=== PATIENT | male | born 1955 | race Caucasian/White ===

== ENCOUNTER 2021-03-29 15:00 | Inpatient (IN) | payer BC ==
--- OUTSIDE RECORDS SUMMARY | 2021-03-29 15:02 | XMS REPORT | Continuity of Care Document ---
:[address] [facility] t Address [address] [place] [address] Care Team Providers Name Role Phone Unavailable Unavailable Unavailable Problems This patient has no known problems. Allergies, Adverse Reactions, Alerts This patient has no known allergies or adverse reactions. Medications Ordered Filled Start Stop Current Ordering Indication Dosage Frequency Signature Comments Components Source Medication Medication Date Date Medication? Clinician (SIG) Name Name Furosemide Furosemide Yes Na So [address] [facility] MethylPREDN MethylPREDN 0 Yes Na So as [facility] ISolone ISolone 01-07 directed [facility] Mupirocin Mupirocin 2020- No Na So [address] [facility] 01[facility]07 applicatio [facility] Keflex Keflex 2020- No Na So [address] [facility] Sulfamethox Sulfamethox Yes Na So [address] [facility] azole-Trime azole-Trime [facility] - thoprim thoprim [facility] Methylpredn Methylpredn Yes Na So [address] [facility] isolone isolone [facility] Furosemide Furosemide Yes Na So [address] [facility] Cephalexin Cephalexin Yes Na So [address] [facility] Claritin Claritin Yes Na So [address] [facility] Potassium Potassium Yes Na So [address] [facility] Chloride ER Chloride ER with food [facility] Procedures This patient has no known procedures. Encounters Start End Encounter Admission Attending Care Care Encounter Source Date/Time Date/Time Type Type Clinicians Facility Department ID 2021-03-27 2021-03-27 ambulatory [facility] [id number] [facility] 2021-01-27 2021-01-27 Outpatient [facility] [id number] [facility] 2021-01-17 2021-01-17 Outpatient [facility] [id number] [facility] 2020-12-27 2020-12-27 Outpatient [facility] [id number] [facility] 2020-09-24 2020-09-24 Outpatient [facility] [id number] [facility] 2020-09-18 2020-09-18 Outpatient [facility] [id number] [facility] 2020-09-03 2020-09-03 Outpatient [facility] [id number] [facility] 2020-06-24 2020-06-24 Outpatient [facility] [id number] [facility] 2020-03-26 2020-03-26 Outpatient [facility] [id number] [facility] 2020-01-25 2020-01-25 Outpatient [facility] [id number] [facility] 2020-01-12 2020-01-12 Outpatient [facility] [id number] [facility] 2020-01-08 2020-01-08 Outpatient [facility] [id number] [facility] 11:00:00 11:00:00 [facility] 2019-12-27 2019-12-27 Outpatient [facility] [id number] [facility] 16:01[facility]00 16:01:00 [facility] 2019-12-25 2019-12-25 Outpatient [facility] [id number] [facility] 10:20:00 10:20:00 [facility] Results This patient has no known results.
[2021-03-29 15:59] LABS: Absolute Lymphocytes (CBC) 0.4 K/uL (0.7-4.9); Basophils % 0.5 % (0-1.3); Lymphocytes % 9.6 % (15.3-44.8); MPV 7.6 fL (7.6-11.3); Protime INR 0.99; RBC Red Blood Cell Count 3.86 M/uL (4.33-5.43)
[2021-03-29 16:15] LABS: Albumin 2.9 g/dL (3.4-5.0); Bilirubin Direct 0.2 mg/dL (0-0.2); Bilirubin Total 0.4 mg/dL (0.2-1.0); Magnesium 2.4 mg/dL (1.8-2.4); Potassium 3.9 mmol/L (3.5-5.1); Protein, Total 8.1 g/dL (6.4-8.2)
[2021-03-29 16:16] LABS: Troponin (Emerg Dept Use Only) 0.54 ng/mL (0.0-0.045)
--- NOTE | 2021-03-29 16:29 | RAD REPORT ---
EXAM DESCRIPTION: Victorino Single View03/29/2021 4:08 pm CLINICAL HISTORY: Chest pain COMPARISON: 2010 FINDINGS: Calcified granuloma right lung. The lungs appear clear of acute infiltrate. The heart is probably upper limits normal size IMPRESSION: No acute abnormalities displayed
[2021-03-29] MEDS ORDERED: ENOXAPARIN 100 MG/ML SYR SQ ONE (16:37)
[2021-03-29] MEDS ORDERED: ASPIRIN 81 MG CHEWABLE TABLET ONE (16:37)
[2021-03-29] MEDS ORDERED: METOPROLOL TARTRATE 5 MG/5 ML INJ IV ONE (16:37)
--- NOTE | 2021-03-29 17:16 | EDPHYS ---
Physician Documentation [facility] Name: Toy Barrios Age: 65 yrs Sex: Male : 1955 Arrival Date: 03/29/2021 Time: 15:00 Bed 2 Private MD: Purnima So ED Physician Bruno Devi HPI: 03/29 15:57 This 65 yrs old Male presents to ER via Wheelchair with complaints of Chest Pain. pm1 15:57 The patient or guardian reports chest pain that is located primarily in the mid-sternal pm1 area. 15:57 Onset: last night. The pain does not radiate. Associated signs and symptoms: Pertinent pm1 positives: palpitations, shortness of breath, Pertinent negatives: abdominal pain, diaphoresis, dizziness, headache, nausea, vomiting. The chest pain is described as a pressure, Then sharp. Duration: The patient or guardian reports multiple episodes, that have now resolved, One episode last night and one episode 30 minutes prior to arrival. 2 episodes chest pain total. Modifying factors: The symptoms are alleviated by nothing. the symptoms are aggravated by exertion, With 2nd episode. Severity of pain: in the emergency department the pain has resolved. The patient has not experienced similar symptoms in the past. The patient has not recently seen a physician. Patient reports onset of chest pain last night that lasted for about 15 minutes. 30 minutes prior to to ER arrival chest pain that lasted for 30 minutes, worse with exertion (walking), shortness of breath and palpitations with elevated heart rate. Patient is currently chest pain and symptom-free. Historical: - Allergies: 15:49 topical eczema cream; jl7 - PMHx: 15:49 eczema; Hypertensive disorder; jl7 - Immunization history:: Adult Immunizations unknown. - Social history:: Smoking status: unknown. ROS: 15:57 Constitutional: Negative for fever, chills, and weight loss. pm1 15:57 Abdomen/GI: Negative for abdominal pain, nausea, vomiting, diarrhea, and constipation, Back: Negative for injury and pain, MS/Extremity: Negative for injury and deformity, Skin: Negative for injury, rash, and discoloration, Neuro: Negative for headache, weakness, numbness, tingling, and seizure. 15:57 Cardiovascular: Positive for chest pain, palpitations, Negative for edema. 15:57 Respiratory: Positive for shortness of breath. 15:57 All other systems are negative. Exam: 15:57 Constitutional: This is a well developed, well nourished patient who is awake, alert, pm1 and in no acute distress. Head/Face: Normocephalic, atraumatic. 15:57 Back: No spinal tenderness. No costovertebral tenderness. Full range of motion. Skin: Warm, dry with normal turgor. Normal color with no rashes, no lesions, and no evidence of cellulitis. MS/ Extremity: Pulses equal, no cyanosis. Neurovascular intact. Full, normal range of motion. 15:57 Eyes: Exam is negative for acute changes, Extraocular movements: no acute changes, Conjunctiva: no acute changes, no injection, Sclera: no acute changes. 15:57 ENT: Exam is negative for acute changes, Mouth: is normal, no acute changes, Lips: normal, moist, Oral mucosa: normal, pink and intact, moist. 15:57 Cardiovascular: Exam negative for acute changes, Rate: normal, Rhythm: regular, Pulses: no pulse deficits are appreciated, Heart sounds: normal, normal S1and S2, Edema: 2+ edema to level of left midcalf, left ankle, left foot, right midcalf, right ankle and right foot. 15:57 Respiratory: Exam negative for acute changes, respiratory distress, shortness of breath, Breath sounds: are clear throughout. 15:57 Abdomen/GI: Exam negative for acute changes, Inspection: abdomen appears normal, Palpation: abdomen is soft and non-tender, in all quadrants. 15:57 Neuro: Exam negative for acute changes, Orientation: is normal, Mentation: is normal, Motor: is normal, moves all fours. Vital Signs: 15:19 BP 154 / 73; Pulse 97; Resp 18; Temp 98.5; Pulse Ox 98% ; Weight 97.52 kg; Height 6 ft. vg1 0 in. (182.88 cm); Pain 0/10; 15:30 BP 120 / 72; Pulse 102; Resp 15; Pulse Ox 98% ; jl7 16:15 BP 123 / 68; Pulse 95; Resp 19; Pulse Ox 97% ; jl7 16:39 BP 124 / 73; Pulse 95; Resp 17; Pulse Ox 98% ; jl7 16:52 BP 114 / 51; Pulse 76; Resp 15; Pulse Ox 99% ; jl7 17:00 BP 121 / 68; Pulse 71; Resp 16; Pulse Ox 100% ; jl7 18:38 BP 135 / 67; Pulse 79; Resp 15; Pulse Ox 100% ; jl7 15:19 Body Mass Index 29.16 (97.52 kg, 182.88 cm) vg1 MDM: 15:25 Patient medically screened. pm1 15:57 Data reviewed: vital signs. Data interpreted: Pulse oximetry: on room air is 98 %. pm1 Interpretation: normal. 16:29 ED course: Patient reports car trip for 27 hours last week, will order ultrasound of pm1 legs. Patient reports swelling is worse than typical. Usually has some swelling to left lower extremity. 16:38 The patient was given aspirin in the Emergency Department. pm1 16:46 Counseling: I had a detailed discussion with the patient and/or guardian regarding: the pm1 historical points, exam findings, and any diagnostic results supporting the discharge/admit diagnosis, lab results, the need for further work-up and treatment in the hospital. 18:16 Physician consultation: Rodo NESBITT was called at 18:16, was contacted at 18:16, pm1 regarding admission, patient's condition, and will see patient in ED. 03/29 15:21 Order name: Basic Metabolic Panel pm1 03/29 15:21 Order name: CBC with Diff pm1 03/29 15:21 Order name: LFT's; Complete Time: 16:20 pm1 03/29 15:21 Order name: Magnesium; Complete Time: 16:20 pm1 03/29 15:21 Order name: NT PRO-BNP; Complete Time: 16:20 pm1 03/29 15:21 Order name: PT-INR; Complete Time: 16:06 pm1 03/29 15:21 Order name: Troponin (emerg Dept Use Only); Complete Time: 16:20 pm1 03/29 15:21 Order name: XRAY Chest (1 view); Complete Time: 16:36 pm1 03/29 15:22 Order name: Basic Metabolic Panel; Complete Time: 16:20 EDMS 03/29 15:22 Order name: CBC with Automated Diff; Complete Time: 19:29 EDMS 03/29 16:29 Order name: Extrem Venous W Compression Santo US; Complete Time: 17:39 pm1 03/29 17:23 Order name: SARS-COV-2 RT PCR; Complete Time: 18:09 EDMS 03/29 19:22 Order name: CBC Smear Scan; Complete Time: 19:29 EDMS 03/29 15:21 Order name: EKG; Complete Time: 15:23 pm1 03/29 15:21 Order name: Cardiac monitoring; Complete Time: 15:31 pm1 03/29 15:21 Order name: EKG - Nurse/Tech; Complete Time: 15:31 pm1 03/29 15:21 Order name: IV Saline Lock; Complete Time: 15:45 pm1 03/29 15:21 Order name: Labs collected and sent; Complete Time: 15:45 pm1 03/29 15:21 Order name: O2 Per Protocol; Complete Time: 15:31 pm1 03/29 15:21 Order name: O2 Sat Monitoring; Complete Time: 15:31 pm1 03/29 18:31 Order name: CONS Physician Consult EDMS Administered Medications: 16:40 Drug: Aspirin Chewable Tablet 324 mg Route: PO; jl7 17:07 Follow up: Response: No adverse reaction jl7 16:45 Drug: Metoprolol 5 mg Route: IVP; Site: right antecubital; jl7 17:07 Follow up: Response: No adverse reaction jl7 16:45 Drug: Lovenox (enoxaparin) 1 mg/kg Route: Sub-Q; Site: abdomen; jl7 17:06 Follow up: Response: No adverse reaction jl7 18:36 Drug: Metoprolol 25 mg Route: PO; jl7 20:09 Follow up: Response: No adverse reaction tw5 Disposition: 03/30 08:00 Co-signature as Attending Physician, Bruno Devi MD I agree with the assessment and rn plan of care. Attestation: The patient's history, exam findings, diagnostics, and a summary of any interventions or procedures was reviewed in detail with Mike West NP. Disposition Summary: 03/29/21 17:15 Hospitalization Ordered Hospitalization Status: Inpatient Admission pm1 Provider: Rodo Diez pm1 Location: Telemetry/MedSur (Inpatient) pm1 Condition: Stable pm1 Problem: new pm1 Symptoms: have improved pm1 Bed/Room Type: Standard pm1 Room Assignment: 407(03/29/21 19:17) eb1 Diagnosis - NSTEMI pm1 Forms: - Medication Reconciliation Form pm1 - SBAR form pm1 Signatures: Dispatcher [employer] EDDE Bruno Devi MD MD rn Mike West, ASSURANCE ASSISTANT ASSURANCE ASSISTANT pm1 Naun Batista RN RN jl7 Rosibel Dennis RN RN eb1 Rose Mary Smith tw5 Corrections: (The following items were deleted from the chart) 03/29 17:23 16:56 CORONAVIRUS+MR.LAB.BRZ ordered. EDDE EDMS 17:59 15:57 Cardiovascular: Exam negative for acute changes, Rate: normal, Rhythm: regular, pm1 Pulses: no pulse deficits are appreciated, Heart sounds: normal, normal S1and S2, Edema: is not appreciated, pm1 19:17 17:15 pm1 eb1
--- NOTE | 2021-03-29 17:16 | ER ---
Nurse's Notes [facility] Name: Toy Barrios Age: 65 yrs Sex: Male : 1955 Arrival Date: 03/29/2021 Time: 15:00 Bed 2 Private MD: Purnima So Diagnosis: NSTEMI Presentation: 03/29 15:19 Chief complaint: Patient states: Chest pain began last night. Then stated about 30 vg1 minutes ago chest pain began again that felt like heart burn. States 'a little bit' or shortness of breath. Denies NVD and headache. Coronavirus screen: Vaccine status: Patient reports receiving the 2nd dose of the covid vaccine. Client denies travel out of the [place] in the last 14 days. Ebola Screen: Patient negative for fever greater than or equal to 101.5 degrees Fahrenheit, and additional compatible Ebola Virus Disease symptoms. Initial Sepsis Screen: Does the patient meet any 2 criteria? No. Patient's initial sepsis screen is negative. Does the patient have a suspected source of infection? No. Patient's initial sepsis screen is negative. Risk Assessment: Do you want to hurt yourself or someone else? Patient reports no desire to harm self or others. Onset of symptoms. 15:19 Method Of Arrival: Wheelchair vg1 15:19 Acuity: LICHA 2 vg1 Historical: - Allergies: 15:49 topical eczema cream; jl7 - PMHx: 15:49 eczema; Hypertensive disorder; jl7 - Immunization history:: Adult Immunizations unknown. - Social history:: Smoking status: unknown. Screenin:00 Abuse screen: Denies threats or abuse. Denies injuries from another. Nutritional jl7 screening: No deficits noted. Tuberculosis screening: No symptoms or risk factors identified. Fall Risk IV access (20 points). Total Pruitt Fall Scale indicates No Risk (0-24 pts). Assessment: 15:40 General: Appears in no apparent distress. uncomfortable, Behavior is calm, cooperative. ll3 Pain: Denies pain. Neuro: Level of Consciousness is awake, alert, obeys commands, Oriented to person, place, time, situation, Speech is normal, Facial symmetry appears normal. Cardiovascular: Patient's skin is warm and dry. 17:00 Reassessment: Patient appears in no apparent distress at this time. No changes from jl7 previously documented assessment. Patient and/or family updated on plan of care and expected duration. Pain level reassessed. Patient is alert, oriented x 3, equal unlabored respirations, skin warm/dry/pink. 18:30 Reassessment: Patient appears in no apparent distress at this time. No changes from jl7 previously documented assessment. Patient and/or family updated on plan of care and expected duration. Pain level reassessed. Patient is alert, oriented x 3, equal unlabored respirations, skin warm/dry/pink. Pain: Denies pain. Pain does not radiate. Pain began suddenly. Vital Signs: 15:19 BP 154 / 73; Pulse 97; Resp 18; Temp 98.5; Pulse Ox 98% ; Weight 97.52 kg; Height 6 ft. vg1 0 in. (182.88 cm); Pain 0/10; 15:30 BP 120 / 72; Pulse 102; Resp 15; Pulse Ox 98% ; jl7 16:15 BP 123 / 68; Pulse 95; Resp 19; Pulse Ox 97% ; jl7 16:39 BP 124 / 73; Pulse 95; Resp 17; Pulse Ox 98% ; jl7 16:52 BP 114 / 51; Pulse 76; Resp 15; Pulse Ox 99% ; jl7 17:00 BP 121 / 68; Pulse 71; Resp 16; Pulse Ox 100% ; jl7 18:38 BP 135 / 67; Pulse 79; Resp 15; Pulse Ox 100% ; jl7 15:19 Body Mass Index 29.16 (97.52 kg, 182.88 cm) vg1 ED Course: 15:00 Patient arrived in ED. as 15:02 Purnima So MD is Private Physician. as 15:19 Mike West [facility] pm1 15:19 Bruno Devi MD is Attending Physician. pm1 15:22 Triage completed. vg1 15:30 Patient maintains SpO2 saturation greater than 95% on room air. jl7 15:30 Patient has correct armband on for positive identification. Placed in gown. Bed in low jl7 position. Call light in reach. Side rails up X2. sheet rocker on. Pulse ox on. NIBP on. 15:46 Initial lab(s) drawn, by me, sent to lab. Inserted saline lock: 20 gauge in right jl7 antecubital area, using aseptic technique. Blood collected. 15:49 Arm band placed on right wrist. jl7 16:07 XRAY Chest (1 view) In Process Unspecified. EDMS 16:36 Crystal Carter, RN is Primary Nurse. ll3 17:08 COVID swab sent to lab. jl7 17:15 Rodo Diez PA is Hospitalizing Provider. pm1 17:17 Extrem Venous W Compression Santo US In Process Unspecified. EDMS 19:02 Basic Metabolic Panel Sent. ll3 19:02 CBC with Diff Sent. ll3 19:04 Awaiting bed assignment. tw5 20:07 No provider procedures requiring assistance completed. Patient admitted, IV remains in tw5 place. Administered Medications: 16:40 Drug: Aspirin Chewable Tablet 324 mg Route: PO; jl7 17:07 Follow up: Response: No adverse reaction jl7 16:45 Drug: Metoprolol 5 mg Route: IVP; Site: right antecubital; jl7 17:07 Follow up: Response: No adverse reaction jl7 16:45 Drug: Lovenox (enoxaparin) 1 mg/kg Route: Sub-Q; Site: abdomen; jl7 17:06 Follow up: Response: No adverse reaction jl7 18:36 Drug: Metoprolol 25 mg Route: PO; jl7 20:09 Follow up: Response: No adverse reaction tw5 Outcome: 17:15 Decision to Hospitalize by Provider. pm1 19:34 Admitted to Med/surg Report called to Everardo on 4th floor. tw5 20:07 Condition: stable tw5 20:08 Admitted to Med/surg accompanied by tech, room 407, with chart. tw5 20:09 Patient left the ED. tw5 Signatures: Dispatcher [employer] Lizette Tyler Patrick, CORE WINDER MACHINE OPERATOR CORE WINDER MACHINE OPERATOR pm1 Naun Batista RN RN jl7 Ludy Navarro, RN RN dane1 Rose Mary Smith tw5 Crystal Carter, RN RN ll3
--- NOTE | 2021-03-29 17:38 | RAD REPORT ---
EXAM DESCRIPTION: USExtrem Venous W Compress Bil03/29/2021 5:17 pm CLINICAL HISTORY: Leg swelling COMPARISON: 2010 FINDINGS: The common femoral, superficial femoral, popliteal and posterior tibial veins bilaterally are compressible and demonstrate augmentation. Doppler demonstrates good flow. IMPRESSION: No evidence of deep venous thrombosis involving either lower extremity.
[2021-03-29] MEDS ORDERED: METOPROLOL TAR 25 MG TAB ONE (18:33)
[2021-03-29 19:22] LABS: Blood Morphology Comment NOT SEEN (NOT SEEN); Platelet Estimate ADEQ; White Blood Cell Scan OK (OK)
--- NOTE | 2021-03-29 20:01 | P.HP ---
Certification for Inpatient Patient admitted to: Inpatient With expected LOS: >2 Midnights Patient will require the following post-hospital care: None Practitioner: I am a practitioner with admitting privileges, knowledge of patient current condition, hospital course, and medical plan of care. Services: Services provided to patient in accordance with Admission requirements found in Title 42 Section 412.3 of the Code of Federal Regulations Patient History Date of Service: 03/29/21 Primary Care Provider: Saray Reason for admission: NSTEMI History of Present Illness: Mr. Barrios is a 65 yo M with HTN who presents with 3/10 sternal chest pain beginning today after eating lunch. He says he didn't feel well so went outside for fresh air when he had a sharp pain in chest that continued to increase. He says the pain had resolved by the time he arrived to the hospital. Reports SOB. Denies vision changes, diaphoresis, palpitations, and nausea. He smokes 1 cigar daily. Father and brother have both had MIs. His last cardiac workup was 20 years ago. Troponin 0.54 BNP 888 Glu 205. Allergies topical eczema cream Allergy (Uncoded 03/29/21 19:07) Itching/Hives/Rash - Past Medical/Surgical History -: HTN Past Surgical History: Patient denies surgical history - Family History Father -: Heart disease Brother -: Heart disease Mother -: Hypertension, Diabetes - Social History Smoking Status: Current every day smoker Alcohol use: Yes CD- Drugs: No Caffeine use: Yes Place of Residence: Home Review of Systems 10-point ROS is otherwise unremarkable General: Unremarkable Eyes: Unremarkable ENT: Unremarkable Respiratory: Shortness of Breath, As per HPI Cardiovascular: Chest Pain, As per HPI Gastrointestinal: Unremarkable Genitourinary: Unremarkable Musculoskeletal: Unremarkable Integumentary: Unremarkable Neurological: Unremarkable Lymphatics: Unremarkable Physical Examination - Physical Exam General: Alert, In no apparent distress HEENT: Atraumatic, PERRLA, Mucous membr. moist/pink, EOMI, Sclerae nonicteric Neck: Supple, 2+ carotid pulse no bruit, No LAD, Without JVD or thyroid abnormality Respiratory: Clear to auscultation bilaterally, Normal air movement Cardiovascular: Regular rate/rhythm, Normal S1 S2, Edema Gastrointestinal: Normal bowel sounds, No tenderness Musculoskeletal: No tenderness Integumentary: Rash(es) Neurological: Normal speech, Normal strength at 5/5 x4 extr, Normal tone, Normal affect Lymphatics: No axilla or inguinal lymphadenopathy - Studies Laboratory Data (last 24 hrs) 03/29/21 15:39: PT 11.4, INR 0.99 03/29/21 15:39: WBC 4.20 L, Hgb 12.4 L, Hct 38.0 L, Plt Count 190 03/29/21 15:39: Sodium 141, Potassium 3.9, BUN 10, Creatinine 1.31 H, Glucose 205 H, Magnesium 2.4, Total Bilirubin 0.4, AST 33, ALT 26, Alkaline Phosphatase 102 Assessment and Plan - Problems (Diagnosis) (1) NSTEMI (non-ST elevated myocardial infarction) Current Visit: Yes Status: Acute (2) HTN (hypertension) Current Visit: Yes Status: Chronic Qualifiers: Hypertension type: primary hypertension Qualified Code(s): I10 - Essential (primary) hypertension - Plan cardiology consulted, on tele trend troponins, repeat EKG full dose lovenox every 12 hours continue daily ASA, BB, statin, prn morphine and nitroglycerin for pain O2 as needed A1c pending, sliding scale insulin lipid and thyroid panel pending monitor BP, hydralazine PRN for spikes Discharge Plan: Home Plan to discharge in: 72 Hours - Advance Directives Does patient have a Living Will: No Does patient have a Durable POA for Healthcare: No - Code Status/Comfort Care Code Status Assessed: Yes (full code ) Critical Care: No Time Spent Managing Pts Care (In Minutes): 70
[2021-03-29] MEDS ORDERED: NITROGLYCERIN 0.4 MG/TAB SL PRN (20:39)
[2021-03-29] MEDS ORDERED: HYDRALAZINE HCL 20 MG/ML VIAL IV PRN (20:39)
[2021-03-29] MEDS ORDERED: MORPHINE 2 MG/ML SYR IV PRN (20:39)
[2021-03-29] MEDS ORDERED: ONDANSETRON 4 MG/2 ML VIAL IV PRN (20:39)
[2021-03-29] MEDS ORDERED: ACETAMINOPHEN 500 MG TAB PO PRN (20:39)
[2021-03-29] MEDS: INSULIN -REGULAR HUMAN 50 UNIT/0.5 ML ML SQ SCH (21:00)
[2021-03-29] MEDS: ATORVASTATIN 40 MG TAB PO SCH (21:14)
[2021-03-29 22:28] VITALS: BMI 29.1
[2021-03-30] MEDS: ENOXAPARIN 100 MG/ML SYR SQ SCH ×2 (04:18→16:54)
[2021-03-30 04:25] LABS: Absolute Lymphocytes (CBC) 1.5 K/uL (0.7-4.9); Basophils % 0.7 % (0-1.3); Hematocrit 35.4 % (39.6-49.0); Lymphocytes % 28.2 % (15.3-44.8); MPV 7.6 fL (7.6-11.3)
[2021-03-30] MEDS ORDERED: ENOXAPARIN 100 MG/ML SYR SQ SCH (04:45)
[2021-03-30 04:56] LABS: Albumin 2.6 g/dL (3.4-5.0); Bilirubin Total 0.3 mg/dL (0.2-1.0); Magnesium 2.4 mg/dL (1.8-2.4); Phosphorus 3.4 mg/dL (2.5-4.9); Protein, Total 7.2 g/dL (6.4-8.2); Thyroid Stimulating Hormone 2.14 uIU/mL (0.360-3.740)
[2021-03-30] MEDS: METOPROLOL TAR 25 MG TAB PO SCH ×2 (06:03→16:55)
[2021-03-30] MEDS: INSULIN -REGULAR HUMAN 50 UNIT/0.5 ML ML SQ SCH (07:30)
[2021-03-30] MEDS: ASPIRIN EC 81 MG TAB PO SCH (08:01)
[2021-03-30] MEDS ORDERED: PNEUMOCOCCAL VACCINE 0.5 ML IMVAC ONE (12:00)
--- NOTE | 2021-03-30 16:13 | P.PN ---
Subjective Date of Service: 03/30/21 Primary Care Provider: Saray Chief Complaint: NSTEMI Patient denies any chest pain at the moment. Troponin trended down from 0.75 to 0.58. Physical Examination - Vital Signs Temperature: 98.2 F Blood Pressure: 107/56 Pulse: 66 Respirations: 18 Pulse Ox (%): 94 - Physical Exam General: Alert, In no apparent distress, Oriented x3 HEENT: Atraumatic, Mucous membr. moist/pink, Sclerae nonicteric Neck: Supple, JVD not distended Respiratory: Clear to auscultation bilaterally, Normal air movement Cardiovascular: Regular rate/rhythm, Normal S1 S2, Edema (Bilateral lower extremities) Capillary refill: <2 Seconds Gastrointestinal: Normal bowel sounds, Soft and benign, Non-distended, No tenderness Musculoskeletal: No tenderness, Swelling (Bilateral legs) Integumentary: No rashes, No erythema Neurological: Normal strength at 5/5 x4 extr, Cranial nerves 3-12 intact - Studies Laboratory Data (last 24 hrs) 03/29/21 15:39: WBC 4.20 L, Hgb 12.4 L, Hct 38.0 L, Plt Count 190 03/29/21 15:39: Sodium 141, Potassium 3.9, BUN 10, Creatinine 1.31 H, Glucose 205 H, Magnesium 2.4, Total Bilirubin 0.4, AST 33, ALT 26, Alkaline Phosphatase 102 Assessment And Plan - Current Problems (Diagnosis) (1) NSTEMI (non-ST elevated myocardial infarction) Current Visit: Yes Status: Acute (2) HTN (hypertension) Current Visit: Yes Status: Chronic Qualifiers: Hypertension type: primary hypertension Qualified Code(s): I10 - Essential (primary) hypertension - Plan Patient with no history of coronary artery disease. Troponin elevated but trended down. Continue to trend troponin. Aspirin and Plavix, full dose Lovenox. Lipitor Check echocardiogram. Beta-slava as his blood pressure will tolerate. Awaiting cardiology input.
[2021-03-30] MEDS: ATORVASTATIN 40 MG TAB PO SCH (21:57)
[2021-03-31 04:05] LABS: Absolute Lymphocytes (CBC) 1.6 K/uL (0.7-4.9); Basophils % 0.6 % (0-1.3); Hematocrit 34.1 % (39.6-49.0); Lymphocytes % 34.3 % (15.3-44.8); MPV 7.9 fL (7.6-11.3)
[2021-03-31 04:30] LABS: Potassium 3.8 mmol/L (3.5-5.1)
[2021-03-31] MEDS: ASPIRIN EC 81 MG TAB PO SCH (06:34)
[2021-03-31] MEDS: METOPROLOL TAR 25 MG TAB PO SCH (06:34)
[2021-03-31] MEDS ORDERED: HEPA 1000U/500MLS 1,000 UNIT/500 ML BAG IV ONE (06:49)
[2021-03-31] MEDS ORDERED: LIDOCAINE 1% 20 ML MDV ONE ×2 (06:49→08:30)
[2021-03-31] MEDS ORDERED: NA CHLORIDE 0.9% 500 ML ONE (07:39)
--- NOTE | 2021-03-31 08:21 | CON ---
Date of Consultation: 03/30/2021 Reason For Consultation: Non-ST elevation myocardial infarction. History Of Present Illness: Mr. Barrios is 65. He has a history of hypertension, family history of h eart disease. He takes lisinopril at home for his blood pressure. He does not smoke and does not melton ve diabetes. He is unsure of his cholesterol status. He just come back from [place] where he w as hunting bears. He had an episode of substernal chest pain that radiated to the arm with some diap horesis and nausea and some shortness of breath. Denied PND, orthopnea, pedal edema, palpitations, o r syncope. Symptoms lasted about an hours. Troponin was positive and I was consulted. EKG was nons pecific. Chest x-ray was normal. Vascular blood work was unremarkable. The patient denied any feve r or chills. Past Medical History: Includes hypertension. Allergies: NONE. Review of Systems: Negative. Family History: Positive for heart disease. Social History: Negative for tobacco. Physical Examination: Vital Signs: Stable. He was afebrile. HEENT: Negative. Neck: Supple without any bruit, lymphadenopathy, JVD, or thyromegaly. Chest: Clear to auscultation and percussion. Cardiac: Exam revealed a regular rhythm and rate. No murmurs, gallops, or rubs. Abdomen: Benign. Extremities: Revealed no clubbing, cyanosis, or edema. Diagnostic Data: As stated earlier. Impression And Plan: Non-ST elevation myocardial infarction. The patient with history of hypertensi on, family history of heart disease. He is on aspirin, Lovenox, metoprolol and statin. We will hold Lovenox today. Plan: Left heart catheterization in the morning with selective coronary arteriogram to define his co ronary anatomy. Further decisions will depend on the catheterization. The patient understands the r isk and the benefits of the procedure and agrees to proceed. HARLEY/MOISÉS Voice ID: [id number] Report ID: [id number]
[2021-03-31] MEDS ORDERED: MIDAZOLAM HCL 2 MG/2 ML INJ ONE ×2 (08:30→09:26)
[2021-03-31] MEDS ORDERED: NA CHLORIDE 0.9% 0 ML ONE (08:31)
[2021-03-31] MEDS ORDERED: ATROPINE SULF 1 MG/10 ML SYR IV ONE (08:31)
[2021-03-31] MEDS ORDERED: FENTANYL CITR 100 MCG/2 ML ONE (08:31)
--- NOTE | 2021-03-31 10:12 | OP ---
Surgeon: Jose A Montero MD Scudding Inspector: Therese Diez. Ad[facility] on 03/31/20[facility] an [facility] after a non-STEMI. He underwent a left heart catheterization and selective coronary arteriogram and LV-gram. Description Of Procedure: He was prepped and draped in the routine sterile fashion. Given Versed an d fentanyl for sedation. A 6-Bel[place]an sheath was introduced in the right common femoral artery success fully. A JL4 and JR4 catheter were used to do the diagnostic catheterization. He was found to be co dominant. He had a 70% mid RCA stenosis. The left main was normal. However, right and the left arti n ostium of the LAD had a long 50% to 60% stenosis. He had a 60% mid LAD stenosis. He had a 90% ost ial circumflex. He was codominant, possible thrombus in the ostial circ. The circ was a large vesse l. A pigtail catheter was introduced in the LV. LV-gram there was normal. Ejection fraction was 70 %. His left ventricular end-diastolic pressure was 14 mmHg. There were no complications. Blood Loss: 5 mL. Postoperative Diagnosis: Severe coronary artery disease. Plan: Transfer to [place] for CABG. Anesthesia: Total conscious sedation was 45 minutes. NB/MODL Voice ID: [id number] Report ID: [id number]
[2021-03-31 12:19] VITALS: O2SAT 98
[2021-03-31 12:39] VITALS: BP 160/67; TEMP 97.3
--- NOTE | 2021-03-31 21:05 | P.DS ---
Admission Date: 03/29/21 Discharge Date: 03/31/21 Primary Care Provider: Saray Disposition: TRANSFER TO [facility] Reason for Admission: NSTEMI - Problems (1) NSTEMI (non-ST elevated myocardial infarction) Status: Acute (2) HTN (hypertension) Status: Chronic Qualifiers: Hypertension type: primary hypertension Qualified Code(s): I10 - Essential (primary) hypertension Brief History of Present Illness: Mr. Barrios is a 65 yo M with HTN who presents with 3/10 sternal chest pain begin andres today after eating lunch. He says he didn't feel well so went outside for fresh air when he had a sharp pain in chest that continued to increase. He says the pain had resolved by the time he arrived to the hospital. Reports SOB. Denies vision changes, diaphoresis, palpitations, and nausea. He smokes 1 cigar daily. Father and brother have both had MIs. His last cardiac workup was 20 years ago. Troponin 0.54 BNP 888 Glu 205. Vital Signs/Physical Exam: Temp Pulse Resp BP Pulse Ox 97.3 F 63 16 160/67 H 98 03/31/21 12:00 03/31/21 12:00 03/31/21 12:00 03/31/21 12:00 03/31/21 12:00 Laboratory Data at Discharge: WBC 4.60 K/uL (4.3-10.9) D 03/31/21 03:33 Hgb 11.1 g/dL (13.6-17.9) L 03/31/21 03:33 Hct 34.1 % (39.6-49.0) L 03/31/21 03:33 Plt Count 185 K/uL (152-406) 03/31/21 03:33 PT 11.4 SECONDS (9.5-12.5) 03/29/21 15:39 INR 0.99 03/29/21 15:39 Sodium 142 mmol/L (136-145) 03/31/21 03:33 Potassium 3.8 mmol/L (3.5-5.1) 03/31/21 03:33 BUN 15 mg/dL (7-18) 03/31/21 03:33 Creatinine 0.90 mg/dL (0.55-1.3) 03/31/21 03:33 Glucose 101 mg/dL (74-106) 03/31/21 03:33 Phosphorus 3.4 mg/dL (2.5-4.9) 03/30/21 04:15 Magnesium 2.4 mg/dL (1.8-2.4) 03/30/21 04:15 Total Bilirubin 0.3 mg/dL (0.2-1.0) 03/30/21 04:15 AST 31 U/L (15-37) 03/30/21 04:15 ALT 22 U/L (12-78) 03/30/21 04:15 Alkaline Phosphatase 93 U/L (45-117) 03/30/21 04:15 Troponin I 0.58 ng/mL (0.0-0.045) H* 03/30/21 07:59 Triglycerides 93 mg/dL (<150) 03/30/21 04:15 Cholesterol 119 mg/dL (<200) 03/30/21 04:15 HDL Cholesterol 42 mg/dL (40-60) 03/30/21 04:15 Cholesterol/HDL Ratio 2.83 03/30/21 04:15 Home Medications: Cephalexin 500 mg PO Q8H 03/29/21 Losartan Potassium 50 mg PO BID 03/29/21 predniSONE [Prednisone] 2 tab PO DAILY 03/29/21 Followup: Purnima So DO [Primary Care Provider] - (Call to schedule appointment)
== END 2021-03-31 13:24 | disposition short-term general hospital (02) | DRG 282 ==
LOC: ER 15:00 → ERHOLD 18:31 → 4TH 20:01
PROVIDERS: ADMIT Internal Medicine; ATTEND Internal Medicine
PROC: 4A023N7 Measurement of Cardiac Sampling and Pressure, Left Heart, Percutaneous Approach (ICD-10-PCS; principal; 2021-03-31)
PROC: B2111ZZ Fluoroscopy of Multiple Coronary Arteries using Low Osmolar Contrast (ICD-10-PCS; 2021-03-31)
PROC: B2151ZZ Fluoroscopy of Left Heart using Low Osmolar Contrast (ICD-10-PCS; 2021-03-31)
DX: I21.4 Non-ST elevation (NSTEMI) myocardial infarction (principal); I10 Essential (primary) hypertension; I25.10 Atherosclerotic heart disease of native coronary artery without angina pectoris; F17.210 Nicotine dependence, cigarettes, uncomplicated; Z91.048 Other nonmedicinal substance allergy status; Z79.899 Other long term (current) drug therapy; Z79.52 Long term (current) use of systemic steroids; Z20.822 Contact with and (suspected) exposure to COVID-19
CPT/HCPCS: 36415; 71045; 80048; 80053; 80061; 80076; 82947; 83036; 83735; 83880; 84100; 84439; 84443; 84484; 85025; 85610; 93005; 93458; 93970; 94760; 96372; 96374; 99285; C1893; J0583; J1644; J1650; J2250; J3010; J7040; U0003

== ENCOUNTER 2021-12-26 19:20 | Emergency (ER) | payer BC ==
--- OUTSIDE RECORDS SUMMARY | 2021-12-26 19:32 | XMS REPORT | Continuity of Care Document ---
:1955 Author Organization [facility] t Address [address] [place] [address] Dr. Owens [address] [place] [id number] Care Team Providers Name Role Phone PURNIMA VALERO Primary Care Physician Unavailable Purnima Valero Attending Clinician Unavailable JAROCHO ADAME Attending Clinician Unavailable Laurel Whitfield RN Attending Clinician Gisel Chicas RN Attending Clinician Unavailable Jarocho Adame MD Attending Clinician [phone] Giovany Lu MD Attending Clinician GIOVANY LU Attending Clinician Unavailable Herrera Black MD Attending Clinician Robert Duran Attending Clinician Unavailable Taty Cavazos RN Attending Clinician Unavailable FAVIO HARO V. Attending Clinician Unavailable Favio Haro MD, V. Attending Clinician Vipul Wilson MD Attending Clinician JAROCHO ADAME Admitting Clinician Unavailable FAVIO HARO V. Admitting Clinician Unavailable Payers Payer Name Policy Type Policy Number Effective Date Expiration Date S franko BCBS PPO POS EPO [id number] 2017 00:00:00 CHOICE Problems Condition Condition Condition Status Onset Resolution Last Treating Co mments Source Name Details Category Date Date Treatment Clinician Date Coronary Coronary Disease [facility] 00 Center CAD CAD Disease Active 2020-[address] [facility] [address] (coronary (coronary 2- Luke s artery artery 00:00: Medical disease) disease) 00 Center Primary Primary Disease Active 2020-[address] [facility] hypertensi hypertensi 2-06 Loren kes on on 00:00: Medical 00 Center Mixed Mixed Disease Active 2020-[address] [facility] hyperlipid hyperlipid 2-06 Loren kes emia emia 00:00: Medical 00 Center PVD PVD Disease Active 2020-[address] [facility] (periphera (periphera 2- Loren kes l vascular l vascular 00:00: Nh dical disease) disease) 00 Center ETOH abuse ETOH abuse Disease Active 2020-[address] [facility]06 [facility] 00[facility] 00 Center Tobacco Tobacco Disease Active 2020-[address] [facility] abuse abuse 2- [facility] 00:00: Medical 00 [place] Atheroscle Atheroscle Disease Active 2020-[address] rosis of rosis of 2 [facility] [place] 00:00: Medical coronary coronary 00 Center artery of artery of [place] heart with heart with unstable unstable angina angina pectoris pectoris Hypovolemi Hypovolemi Disease Active [facility] c shock c shock [facility] Acute Acute Disease Active [facility] respirator respirator Loren kes y acidosis y acidosis Me dical Center Allergies, Adverse Reactions, Alerts Allergy Allergy Status Severity Reaction(s) Onset Inactive Treating Comm ents Source Name Type Date Date Clinician Crisabor Propensi Active Anaphylaxis 2020-[address] ole ty to 2 to [facility] adverse 00:00: Eucrisa Medical reaction 00 Center s CRISABOR Allergy Active High Anaphylaxis 2020-[address] OLE 2- [facility] 00:00: Medical 00 Center Family History Family Member Diagnosis Comments Start Date Stop Date Source Natural brother Heart disease [facility] Natural father Heart disease [facility] Natural mother Diabetes [facility] Natural mother Hypertension [facility] Social History Social Habit Start Date Stop Date Quantity Comments Source History of Cigar Smoker [facility] tobacco use Medical Cente r Alcohol intake 2021-04-08 2021-04-08 Ex-drinker BINTA Rodriguez Reji es 00:00:00 00:00:00 (finding) [facility] Tobacco use and 2021-04-04 2021-04-04 Never used BINTA Alarcon kekat exposure 00:00:00 00:00:00 [facility] Tobacco Comment 2021-04-04 2021-04-04 quit- 03/30/[address] [facility] 00:00:00 00:00:00 pt [facility] Sex [birth year] BINTA Carcamo 00:00:00 00:00:00 [facility] Center Smoking Status Start Date Stop Date Source Former smoker 2021-04-04 00:00:00 2021-04-04 00:00:00 [facility] Medications Ordered Filled Start Stop Current Ordering Indication Dosage Frequency Signature Comments Components Source Medication Medication Date Date Medication? Clinician (SIG) Name Name sulfamethox 2020-04 Yes 1{tbl} Q.5D Take [address] azole-trime 2-29 tablet by Reji es thoprim 11:24: mouth 2 Medical (BACTRIM 19 (two) Center DS) 800-160 times mg per daily. tablet clopidogreL 2020-04 No 75mg QD Take [address] [facility] (PLAVIX) 75 2-20 12-20 tablet (75 L ukes mg tablet 00:00: 23:59 mg total) Me dical 00 :00 by mouth Center daily. torsemide 2020-04 No 40mg QD Take 2 [facility] (DEMADEX) 2-20 12-20 tablets [facility] 20 MG 00:00: 23:59 (40 mg Medical tablet 00 :00 total) by Center mouth daily. metoprolol 2020-04 No 12.5mg Q.5D Take 0.[address] tartrate 2-19 12-19 tablets [facility] (LOPRESSOR) 00:00: 23:59 (12.5 mg M edical 25 MG 00 :00 total) by Center tablet mouth 2 (two) times daily. gabapentin 2020-04- No 100mg [id number] Take [address] (NEURONTIN) 2-19 12-19 [id number] capsule [facility] 100 MG 00:00: 23:59 3D (100 mg Medical capsule 00 :00 total) by Center mouth 3 (three) times daily. lidocaine 2020-04 No 2{patch Q24H Place [address] (LIDODERM) 06-14 } patches [facility] 5 % patch 00:00: 23:59 onto the Med ical 00 :00 skin daily Center for 30 days Remove & Discard patch within 12 hours or as directed by . HYDROcodone 2020-04 No 1{tbl} Take [address] -acetaminop 06-14 tablet by Loren gardner (NORCO 00:00: 23:59 mouth Medic al 5-325) 00 :00 every 4 Center 5-325 mg (four) per tablet hours as needed for up to 10 days. Max Daily Amount: 6 tablets ciprofloxac 2020-04 Coronary 500mg Q.5D Take [address] in HCl 06-05 artery tablet [facility] (Cipro) 500 00:00: 00:00 disease (500 mg Medical MG tablet 00 :00 involving total) by Center [place] mouth 2 coronary (two) artery of times [place] daily for heart, 5 days. unspecified whether angina present aspirin 81 2020-04 81mg QD Take [address] MG EC 06-04 tablet (81 [facility] tablet 00:00: 23:59 mg total) Medic al 00 :00 by mouth Center daily. losartan 2020-04 No 50mg Q.5D Take [address] (COZAAR) 50 06-03 by mouth 2 L ukes MG tablet 08:31: 00:00 (two) Medica l 19 :00 times Center daily. atorvastati 2020-04- No 80mg QD Take [address] n (LIPITOR) 06-03- tablet (80 L ukes 80 MG 00:00: 23:59 mg total) Medica l tablet 00 :00 by mouth Center nightly. ferrous 2020-04- No 325mg Take [address] [facility] [facility] sulfate 325 06-03 tablet [facility] (65 FE) MG 00:00: 23:59 (325 mg Med ical tablet 00 :00 total) by Center mouth daily with breakfast. metoprolol 2020-04 No 25mg Q.5D Take [address] tartrate 2-08 12-19 tablet (25 Luke s (LOPRESSOR) 00:00: 00:00 mg total) Medical 25 MG 00 :00 by mouth 2 Center tablet (two) times daily. Furosemide Furosemide Yes Na Valero 1 tablet Common 01-07 Spirit 00:00: - CHI 00 [facility] MethylPREDN MethylPREDN Yes Na Valero as Common ISolone ISolone 01-07 directed Spiri t 00:00: with food - [facility] 00 [facility] Mupirocin Mupirocin 2020- No Na Valero 1 Common 01-07 applicatio Spirit 00:00: 00:00 n to - CHI 00 :00 affected [facility] Keflex Keflex 2020- No Na Valero 1 capsule Common 01-07 Spirit 00:00: 00:00 - CHI 00 :00 [facility] Sulfamethox Sulfamethox Yes Na Valero 1 tablet Common azoleTrime azole-Trime S [facility] M[facility]predn Yes Na Valero 1 tab Common isolone isolone [facility] Furosemide Furosemide Yes Na Valero 1 tablet [facility] Cephalexin Cephalexin Yes Na Valero 1 capsule [facility] Claritin Claritin Yes Na Valero 1 tablet [facility] Potassium Potassium Yes Na Valero 1 tablet Common Chloride ER Chloride ER with [facility] Vital Signs Vital Name Observation Time Observation Value Comments Source HEIGHT 2021-04-30 11:18:00 182.9 cm WEIGHT 2021-04-30 11:18:00 92.08 kg HEIGHT 2021-04-30 11:18:00 182.9 cm WEIGHT 2021-04-30 11:18:00 92.08 kg HEIGHT 2021-04-23 11:14:00 182.9 cm WEIGHT 2021-04-23 11:14:00 91.627 kg HEIGHT 2021-04-23 11:14:00 182.9 cm WEIGHT 2021-04-23 11:14:00 91.627 kg WEIGHT 2021-04-13 07:00:00 93.486 kg WEIGHT 2021-04-12 03:00:00 93.033 kg HEIGHT 2021-04-07 06:16:00 182.9 cm WEIGHT 2021-04-07 06:16:00 88.587 kg HEIGHT 2021-04-04 10:31:00 182.9 cm WEIGHT 2021-04-04 10:31:00 93.895 kg WEIGHT 2021-04-13 07:00:00 93.486 kg WEIGHT 2021-04-12 03:00:00 93.033 kg HEIGHT 2021-04-07 06:16:00 182.9 cm WEIGHT 2021-04-07 06:16:00 88.587 kg HEIGHT 2021-04-04 10:31:00 182.9 cm WEIGHT 2021-04-04 10:31:00 93.895 kg WEIGHT 2021-04-13 07:00:00 93.486 kg WEIGHT 2021-04-12 03:00:00 93.033 kg HEIGHT 2021-04-07 06:16:00 182.9 cm WEIGHT 2021-04-07 06:16:00 88.587 kg HEIGHT 2021-04-04 10:31:00 182.9 cm WEIGHT 2021-04-04 10:31:00 93.895 kg HEIGHT 2021-04-04 13:24:00 182.9 cm WEIGHT 2021-04-04 13:24:00 93.613 kg HEIGHT 2021-04-04 13:24:00 182.9 cm WEIGHT 2021-04-04 13:24:00 93.613 kg HEIGHT 2021-04-04 13:24:00 182.9 cm WEIGHT 2021-04-04 13:24:00 93.613 kg HEIGHT 2021-03-31 14:50:00 182.9 cm WEIGHT 2021-03-31 14:50:00 96.2 kg HEIGHT 2021-03-31 14:50:00 182.9 cm WEIGHT 2021-03-31 14:50:00 96.2 kg HEIGHT 2021-03-31 14:50:00 182.9 cm WEIGHT 2021-03-31 14:50:00 96.2 kg Systolic blood 2021-04-30 11:18:00 131 mm[Hg] [facility] Diastolic blood 2021-04-30 11:18:00 92 mm[Hg] [facility] Heart rate 2021-04-30 11:18:00 82 /min [facility] Body temperature 2021-04-30 11:18:00 36.17 Smilye [facility] Respiratory rate 2021-04-30 11:18:00 14 /min [facility] Body height 2021-04-30 11:18:00 182.9 cm [facility] Body weight 2021-04-30 11:18:00 92.08 kg [facility] BMI 2021-04-30 11:18:00 27.53 kg/m2 [facility] Oxygen saturation in 2021-04-30 11:18:00 97 /min [facility] Arterial blood by Medical Ce nter Pulse oximetry Procedures Procedure Date / Time Performed Performing Clinician [facility] e BASIC METABOLIC PANEL (7) 2021-04-13 05:16:00 Giovany Lu [facility] CBC W/PLT COUNT & AUTO 2021-04-13 05:16[facility] 2021-04-13 05:16:00 Shandaon [facility] CBC W/PLT COUNT & AUTO 2021-04-13 05:16:00 [facility] B-TYPE NATRIURETIC FACTOR 2021-04-12 03:58:00 Kyel Cordoba [facility] (BNP) [facility] BASIC METABOLIC PANEL (7) 2021-04-12 03:58:00 GiveonGiovany [facility] CBC W/PLT COUNT & AUTO 2021-04-12 03:58:00 Givesilvio [facility] MAGNESIUM 2021-04-12 03:58:00 Giveon [facility] CBC W/PLT COUNT & AUTO 2021-04-12 03:58:00 [facility] SARS-COV2/RT-PCR ([facility] & 2021-04-11 16:04[facility] BASIC METABOLIC PANEL (7) 2021-04-11 03:24:00 Mohit Giovany [facility] CBC W/PLT COUNT & AUTO 2021-04-11 03:24:00 Mohit Giovany [facility] MAGNESIUM 2021-04-11 03:24:00 Giveon [facility] CBC W/PLT COUNT & AUTO 2021-04-11 03:24:00 Shanda [facility] 2D ECHO W/ DOPPLER 2021-04-10 15:39:35 Kyle Cordoba [facility] (CW/PW/COLOR) [facility] XR CHEST 1 VIEW PORTABLE 2021-04-10 04:31:[address] [facility] CALCIUM, IONIZED 2021-04-10 03:29:00 Sheila Turner [facility] BASIC METABOLIC PANEL (7) 2021-04-10 03:29:00 Giovany Lu [facility] CBC W/PLT COUNT & AUTO 2021-04-10 03:29:00 Mohit [facility] MAGNESIUM 2021-04-10 03:29:00 Mohit [facility] B-TYPE NATRIURETIC FACTOR 2021-04-10 03:29:00 Kyle Cordoba [facility] (BNP) [facility] CBC W/PLT COUNT & AUTO 2021-04-10 03:29:00 [facility] PRE[facility]ARE LEUKO-REDUCED RBC 2021-04-09 23:54:00 Clint Ibarra [facility] XR CHEST 1 VIEW PORTABLE 2021-04-09 04:49:[address] [facility] BASIC METABOLIC PANEL (7) 2021-04-09 03:36:00 Sheila Turner [facility] MAGNESIUM 2021-04-09 03:36:00 [facility] 2021-04-09 03:36:00 Sheila Turner [facility] CBC (HEMOGRAM ONLY) 2021-04-09 03:36:00 Sheila Turner [facility] CALCIUM, IONIZED 2021-04-09 03:36:00 Sheila Turnerilranda [facility] ECG 12-LEAD 2021-04-09 01:08:25 Unknown, 7 [facility] ECG 12-LEAD 2021-04-09 01:07:46 Unknown, 7 [facility] ECG 12-LEAD 2021-04-09 01:07:46 Unknown, 7 [facility] ECG 12-LEAD 2021-04-09 01:05:59 Unknown, 7 [facility] ECG 12-LEAD 2021-04-09 01:05:59 Unknown, 7 [facility] ECG 12-LEAD 2021-04-09 01:04:46 Unknown, [address] ECG 12-LEAD 2021-04-09 01:04:46 Unknown, 7 [facility] CBC (HEMOGRAM ONLY) 2021-04-08 13:37:00 [facility] TRANSFUSE LEUKO-REDUCED 2021-04-08 09:45:00 [facility] RED BLOOD CELLS [facility] POCT-GLUCOSE METER 2021-04-08 06:23:00 Jarocho Adame [facility] LACTIC ACID, ARTERIAL 2021-04-08 06:17:00 Sally Cardozo [facility] HEMOGLOBIN AND HEMATOCRIT 2021-04-08 06:17:00 Clint [facility] XR CHEST 1 VIEW PORTABLE 2021-04-08 01:18:00 Sheila Turner [facility] CALCIUM, IONIZED 2021-04-08 00:47:00 Sheila Turnerilranda [facility] OXYGEN SATURATION, 2021-04-08 00:45:00 [facility] L[facility], ARTERIAL 2021-04-08 00:43:00 Sally Cardozo [facility] BASIC METABOLIC PANEL (7) 2021-04-08 00:43:00 Sheila Turner [facility] MAGNESIUM 2021-04-08 00:43:00 Johnny [facility] PHOSPHORUS 2021-04-08 00:43:00 [facility] CBC (HEMOGRAM ONLY) 2021-04-08 00:43:00 Johnny [facility] BLOOD GAS, ARTERIAL 2021-04-08 00:43[facility] 2021-04-07 18:51:25 Unknown, Hl7 [facility] ECG 12-LEAD 2021-04-07 18:51:25 Unknown, 7 [facility] ECG 12-LEAD 2021-04-07 18:48:11 Unknown, 7 [facility] RRL CRITICAL LABS 2021-04-07 18:23:00 [facility] (ABG,NA,K,H&H,GLUCOSE) Medical C enter BLOOD GAS, ARTERIAL 2021-04-07 18:23:[address] [facility] OXYGEN SATURATION, 2021-04-07 16:22:[address] [facility] LACTIC ACID, ARTERIAL 2021-04-07 16:22:00 Sally Cardozo [facility] RRL CRITICAL LABS 2021-04-07 16:22:00 [facility] (ABG,NA,K,H&H,GLUCOSE) Medical C enter BLOOD GAS, ARTERIAL 2021-04-07 16:22:[address] [facility] [facility] CALCIUM, IONIZED 2021-04-07 16:22:00 Johnny [facility] RRL CRITICAL LABS 2021-04-07 13:11:00 Juliane [facility] (ABG,NA,K,H&H,GLUCOSE) [facility] enter CALCIUM, IONIZED 2021-04-07 13:11:00 Juliane [facility] LACTIC ACID, ARTERIAL 2021-04-07 13:11:00 Sally Cardozo [facility] BLOOD GAS, ARTERIAL 2021-04-07 13:11:00 Juliane [facility] SODIUM NA-STAT LAB 2021-04-07 13:11:00 Juliane [facility] POTASSIUM-STAT LAB 2021-04-07 13:11:00 Juliane [facility] GLUCOSE-STAT LAB 2021-04-07 13:11:00 Juliane [facility] HGB/HCT (H&H) - STAT LAB 2021-04-07 13:11:00 Sally Cardozo [facility] MAGNESIUM 2021-04-07 13:10:00 Phan tl [facility] PHOSPHORUS 2021-04-07 13:10:00 [facility] PROTHR[facility] TIME/INR 2021-04-07 13:10:[address] [facility] APTT 2021-04-07 13:10:00 [facility] FIBRINOGEN 2021-04-07 13:10:[address] [facility] COMPREHENSIVE METABOLIC 2021-04-07 13:10:00 Sally Cardozo [facility] PANEL [facility] CBC W/PLT COUNT & AUTO 2021-04-07 13:10:00 Sally Cardozo [facility] DIFFERENTIAL [facility] CBC W/PLT COUNT & AUTO 2021-04-07 13:10:00 Juliane [facility] DIFFERENTIAL [facility] PREPARE RBC 2021-04-07 13:06:00 Jarocho Adame [facility] XR CHEST 1 VIEW PORTABLE 2021-04-07 12:58:00 Sally Cardozo [facility] RRL CRITICAL LABS 2021-04-07 12:08:16 [facility] (ABG,NA,K,H&H,GLUCOSE) Medical C enter STAT-LAB IONIZED CALCIUM 2021-04-07 12:08:16 [facility] BLOOD [facility], ARTERIAL 2021-04-07 12:08:16 [facility] NA-STAT LAB 2021-04-07 12:08:16 [facility]OT[facility] 2021-04-07 12:08:16 [facility] GLU[facility]SE-STAT LAB 2021-04-07 12:08:16 [facility] HGB/HCT (H&H) - STAT LAB 2021-04-07 12:08:16 [facility] POCT-ACT 2021-04-07 12:04:00 Deep [facility] RRL CRITICAL LABS 2021-04-07 11:36:22 [facility] (ABG,NA,K,H&H,GLUCOSE) Medical C enter CALCIUM, IONIZED 2021-04-07 11:36:22 [facility]IB[facility] 2021-04-07 11:36:22 [facility] APTT 2021-04-07 11:36:22 [facility] PROTHROMBIN TIME/INR 2021-04-07 11:36:22 [facility] PLATELET COUNT 2021-04-07 11:36:22 [facility] BLOOD GAS, ARTERIAL 2021-04-07 11:36:22 [facility] SODIUM NA-STAT LAB 2021-04-07 11:36:22 [facility] POTASSIUM-STAT LAB 2021-04-07 11:36:22 [facility] GLUCOSE-STAT LAB 2021-04-07 11:36:22 [facility] (H&H) - STAT LAB 2021-04-07 11:36:22 [facility] MISCELLANEOUS LAB ORDER 2021-04-07 11:36:22 [facility] CBC W/PLT COUNT & AUTO 2021-04-07 11:36:00 Maddy Chisholm [facility] DIFFERENTIAL [facility] CBC W/PLT COUNT & AUTO 2021-04-07 11:36:00 Phan [facility] DIFFERENTIAL [facility] POCT-ACT 2021-04-07 11:06:00 [facility] RRL CRITICAL LABS 2021-04-07 10:58:38 Sheila Turner [facility] (ABG,NA,K,H&H,GLUCOSE) Medical C enter BLOOD GAS, ARTERIAL 2021-04-07 10:58:38 [facility] SODIUM NA-STAT LAB 2021-04-07 10:58:38 [facility] POTASSIUM-STAT LAB 2021-04-07 10:58:38 [facility] GLUCOSE-STAT LAB 2021-04-07 10:58:38 [facility] HGB/HCT (H&H) - STAT LAB 2021-04-07 10:58:38 Jarocho Adame [facility] PROTHROMBIN TIME/INR 2021-04-07 10:53:29 [facility] APTT 2021-04-07 10:53:29 [facility] FIBRINOGEN 2021-04-07 10:53:29 [facility] PLATELET COUNT 2021-04-07 10:53:29 [facility] CBC (HEMOGRAM ONLY) 2021-04-07 10:53:29 [facility] MISCELLANEOUS LAB ORDER 2021-04-07 10:53:29 [facility] POCT-ACT 2021-04-07 10:34:00 Jarocho Adame [facility] RRL CRITICAL LABS 2021-04-07 10:32:36 Sheila Turner [facility] (ABG,NA,K,H&H,GLUCOSE) Medical C enter BLOOD GAS, ARTERIAL 2021-04-07 10:32:36 Jarocho Adame [facility] SODIUM NA-STAT LAB 2021-04-07 10:32:36 Jarocho Adame [facility] POTASSIUM-STAT LAB 2021-04-07 10:32:36 Jarocho Adame [facility] GLUCOSE-STAT LAB 2021-04-07 10:32:36 Jarocho Adame [facility] HGB/HCT (H&H) - STAT LAB 2021-04-07 10:32:36 Jarocoh Adame [facility] POCT-ACT 2021-04-07 10:03:00 Jarocho Adame [facility] RRL CRITICAL LABS 2021-04-07 10:00:49 [facility] (ABG,NA,K,H&H,GLUCOSE) Medical C enter BLOOD GAS, ARTERIAL 2021-04-07 10:00:49 Jarocho Adame [facility] SODIUM NA-STAT LAB 2021-04-07 10:00:49 Jarocho Adame [facility] POTASSIUM-STAT LAB 2021-04-07 10:00:49 Jarocho Adame [facility] GLUCOSE-STAT LAB 2021-04-07 10:00:49 Jarocho Adame [facility] HGB/HCT (H&H) - STAT LAB 2021-04-07 10:00:49 Jarocho Adame [facility] POCT-ACT 2021-04-07 09:26:00 Jarocho Adame [facility] RRL CRITICAL LABS 2021-04-07 08:26:14 Herrera Black [facility] (ABG,NA,K,H&H,GLUCOSE) Medical C enter CALCIUM, IONIZED 2021-04-07 08:26:14 [facility] BLOOD GAS, ARTERIAL 2021-04-07 08:26:14 [facility] SODIUM NA-STAT LAB 2021-04-07 08:26:14 [facility] POT[facility]SIUM-STAT LAB 2021-04-07 08:26:14 [facility] GLUCOSE-STAT LAB 2021-04-07 08:26:14 [facility] HGB/HCT (H&H) - STAT LAB 2021-04-07 08:26:14 [facility] CABG, USING INTERNAL 2021-04-07 07:10:00 Jarocho Adame [facility] THORACIC ARTERY [facility] SAPHENOUS VEIN GRAFT POCT-GLUCOSE METER 2021-04-07 05:49:00 Jarocho Adame [facility] EKG-SCANNED 2021-04-07 00:00:00 ProviderMohan [facility] TYPE AND SCREEN, 2021-04-04 14:34:00 Dinh Pedroza [facility] AUTOMATED [facility] SARS-COV2/RT-PCR ([facility] & 2021-04-04 13:52:00 Jarocho Adame [facility] REF LABS) [facility] HC ARTERIAL DOPPLER ARMS 2021-04-02 10:35:[address] [facility] SULEIMAN [facility] HC DUP-SCAN HEMO COMPL BI 2021-04-02 10:17:[address] [facility] STD [facility] HC ARTERIAL PRESSURES 2021-04-02 10:00:00 Jarocho Adame [facility] UPR/LXTR [facility] APTT 2021-04-02 04:30:00 Favio Haro V. [facility] BASIC METABOLIC PANEL (7) 2021-04-02 04:30:00 Favio Haro V[facility] IRON, TIBC, % SAT. 2021-04-02 04:30:00 [facility] 2021-04-02 04:30:00 Tahir [facility] CBC (HEMOGRAM ONLY) 2021-04-02 04:30:[address] [facility] CT CHEST WITH IV CONTRAST 2021-04-02 00:40:[address] [facility] POCT-ACT 2021-04-01 17:47:00 Tahir [facility] CATHETERIZATION, HEART, 2021-04-01 16:37:00 Vipul Wilson [facility] LEFT, WITH PERCUTANEOUS [facility] Center CORONARY INTERVENTION 2D ECHO W/ DOPPLER 2021-04-01 13:50:55 Kyle Cordoba [facility] (CW/PW/COLOR) [facility] APTT 2021-04-01 12:13:00 Tahir [facility] APTT 2021-04-01 05:19:00 Tahir [facility] HIGH SENSITIVITY TROPONIN 2021-04-01 05:19:[address] [facility] BASIC METABOLIC PANEL (7) 2021-04-01 05:19:[address] [facility] CBC (HEMOGRAM ONLY) 2021-04-01 05:19:[address] [facility] ABORH, MANUAL 2021-04-01 00:01:00 Lizzette Doe [facility] TYPE AND SCREEN, 2021-03-31 23:38:00 Jarocho Adame [facility] AUTOMATED [facility] APTT 2021-03-31 23:38:00 Jarocho Adame [facility] HEMOGLOBIN A1C 2021-03-31 23:38:00 DeepJarocho carreno [facility] HC VENOUS DOPPLER EXT SULEIMAN 2021-03-31 21:25:[address] [facility] HC CAROTID DOPPLER SULEIMAN 2021-03-31 19:12:00 Adalid, Kyle [facility] ECG 12-LEAD 2021-03-31 17:42:40 Karely [facility] ECG 12-LEAD 2021-03-31 17:42:40 Unknown, Hl7 [facility] XR CHEST 1 VIEW PORTABLE 2021-03-31 16:53:00 Favio Haro [facility] SARS-COV2/RT-PCR ([facility] & 2021-03-31 16:25:00 Favio Haro [facility] REF LABS) [facility] CBC W/PLT COUNT & AUTO 2021-03-31 16:23:00 [facility] DIFFERENTIAL [facility] CBC W/PLT COUNT & AUTO 2021-03-31 16:23:00 [place] [facility] BASIC METABOLIC PANEL (7) 2021-03-31 16:23:00 [facility] MAGNESIUM 2021-03-31 16:23:00 Favio Haro V. [facility] PHOSPHORUS 2021-03-31 16:23:00 Tahir [facility] HEPATIC FUNCTION PANEL 2021-03-31 16:23:[address] [facility] B-TYPE NATRIURETIC FACTOR 2021-03-31 16:23:00 Tahir [facility] (BNP) [facility] APTT 2021-03-31 16:23:00 [facility] COMPREHENSIVE METABOLIC 2021-03-31 16:23:00 Karely [facility] LIPID PANEL 2021-03-31 16:23:00 Karely [facility] PROTHROMBIN TIME/INR 2021-03-31 16:23:00 [facility] - 2021-03-31 00:00:00 Provider, Mohan [facility] SCAN Scanning [facility] Plan of Care Planned Activity Planned Date Details Comments Source Future Scheduled 2021-12-25 INFLUENZA VACCINE (#1) [facility] [code = INFLUENZA Medical Ce nter VACCINE (#1)] Future Scheduled 2021-04-[address] [facility] 00:00:00 (12+) [code = Medical Center DEPRESSION SCREENING (12+)] Future Scheduled 2021-04-26 FALLS RISK SCREENING [facility] 00:00:00 [code = FALLS RISK Medical C enter SCREENING] Future Scheduled 2021-02-13 COVID-19 VACCINE (3 - [facility]00 [facility] series) [code = COVID-19 VACCINE (3 - Booster for [employer] series)] Future Scheduled 2020-12-[address] [facility] Test 00:00:00 aneurysm screening Medical C enter (procedure) [code = 831845720] Future Scheduled 2005-12-05 SHINGLES VACCINES ([address] [facility] 00:00:00 2) [code = SHINGLES Medical Center VACCINES (1 of 2)] Future Scheduled 1974-12-05 DTAP/TDAP/TD VACCINES [facility] 00:00:00 (1 - Tdap) [code = Medical C enter DTAP/TDAP/TD VACCINES (1 - Tdap)] Future Scheduled 1973-12-05 HEPATITIS C SCREENING [facility] 00:00:00 [code = HEPATITIS C Medical Center SCREENING] Future Scheduled 1961-12-05 PNEUMOCOCCAL 65+ YRS ([address] [facility] 00:00:00 - PCV) [code = Medical Cente r PNEUMOCOCCAL 65+ YRS (1 - PCV)] Future Scheduled 1955 CT Colonography (combo) [facility] 00:00:00 [code = CT Colonography [facility] (combo)] Future Scheduled 1955 Screening for malignant [facility] 00:00:00 neoplasm of colon Medical Ce nter (procedure) [code = 118141621] Future Scheduled 1955 Screening for malignant [facility] 00:00:00 neoplasm of colon Medical Ce nter (procedure) [code = 272344916] Future Scheduled 1955 Screening for malignant [facility] 00:00:00 neoplasm of colon Medical Ce nter (procedure) [code = 350485400] Future Scheduled 1955 Screening for malignant [facility] Test 00:00:00 neoplasm of colon Medical Ce nter (procedure) [code = 917835361] Future Scheduled 1955 Sigmoidoscopy [code = [facility] Sigmoidoscopy] Medical Cente r Encounters Start End Encounter Admission Attending Care Care Encounter Source Date/Time Date/Time Type Type Clinicians Facility Department ID 2021-07-23 Outpatient Valero, Na STLMLC STLMLC [id number] Common 15:29:00 [id number] [facility] 2021-05-21 Outpatient Valero, Na STLMLC STLMLC [id number] Common 13:56:02 [id number] [facility] 2021-05-21 Outpatient Valero, Na STLMLC STLMLC [id number] Common 13:07:52 [id number] [facility] 2021-05-21 Outpatient Valero, Na STLMLC STLMLC [id number] Common 13:01:41 [id number] [facility] 2021-05-21 Outpatient Valero, Na STLMLC STLMLC [id number] Common 12:34:25 [id number] [facility] 2021-05-21 Outpatient Valero, Na STLMLC STLMLC [id number] Common 12:33:56 [id number] [facility] 2021-05-21 Outpatient Valero, Na STLMLC STLMLC [id number] Common 12:08:47 [id number] [facility] 2021-05-21 Outpatient Valero, Na STLMLC STLMLC [id number] Common 11:50:38 03222 [facility] 2021-05-21 Outpatient Valero, Na STLMLC STLMLC [id number] Common 11:48:36 [id number] [facility] 2021-05-21 Outpatient Valero, Na STLMLC STLMLC [id number] 2 Common 11:46:51 [id number] [facility] 2021-05-21 Outpatient Valero, Na STLMLC STLMLC [id number] 2 Common 11:44:43 [id number] [facility] 2021-05-21 Outpatient Saray, Na STLMLC STLC [id number] 2 Common 11:41:58 [id number] [facility] 2021-03-31 Inpatient KIMMY FALL Surgery [id number] [facility] 10:27:50 JAROCHO 2021-11-24 2021-11-24 ambulatory STLMLC STLC [id number] Common 00:00:00 00:00:00 [facility] 2021-09-13 2021-09-13 Telephone Roseann [facility] [id number] 00[facility] 00[facility]00[facility]00 [facility] 2021-07-28 2021-07-28 ambulatory STLMLC STLC [id number] Common 00:00:00 00:00:00 [facility] 2021-07-22 2021-07-22 ambulatory STLMLC STLC [id number] Common 00:00:00 00:00:00 [facility] 2021-06-18 2021-06-18 Telephone Juan Francisco [facility] [id number] 00:[facility] 00:00:00 [facility] 2021-04-30 2021-04-30 Office Deep [facility] [id number] 11:00:00 11:30:[address] [facility] 2021-04-30 2021-04-30 Outpatient KIMMY FALL [facility] [id number] SLE 11:17:46 11:17:46 JAROCHO 2021-04-23 2021-04-23 Office Deep [facility] [id number] 11:00:00 11:30:[address] [facility] 2021-04-23 2021-04-23 Outpatient KIMMY FALL SLE [id number] [facility] 11:02:34 11:02:34 JAROCHO 2021-04-23 2021-04-23 Travel [facility] [id number] [facility] 00:[facility] 00:00:00 [facility] 2021-04-16 2021-04-16 Telephone Roseann [facility] [id number] 00:00[facility]00 00:00:00 [facility] 2021-04-07 2021-04-13 [facility] [id number] 05:23:00 14:03:00 Encounter Giovany Lu [facility] 2021-04-07 2021-04-13 Inpatient EL GIOVANY LU [facility] Surgery [id number] SLE 05:23:00 14:03:00 2021-04-09 2021-04-09 Outpatient BCM BCM [id number] [facility] 00:00:00 23:59:00 [facility] 2021-04-09 2021-04-09 Orders [facility] [id number] 00:00:00 00:00:00 [facility] 2021-04-07 2021-04-07 Outpatient BCM BC [id number] [facility] 05:23:00 23:59:00 [facility] 2021-04-07 2021-04-07 Anesthesia Herrera Black [facility] [id number] 07:19:00 12:50:00 Event Robert Jerome [facility] 2021-04-07 2021-04-07 Surgery [facility] [id number] 07:30:00 11:15:00 [facility] 2021-04-07 2021-04-07 Orders [facility] [id number] 00:00:00 00:00:00 [facility] 2021-04-04 2021-04-04 Outpatient EL SLE SLEH [id number] [facility] 10:43:04 23:59:00 2021-04-04 2021-04-04 [facility] [id number] 09:35:00 23:59:00 [facility] 2021-04-04 2021-04-04 Outpatient EL SLE SLEH [id number] [facility] 13:18:20 13:18:20 2021-04-04 2021-04-04 Clinical Jarocho Adame [facility] [id number] 13:00:00 13:15:00 Support Taty Cavazos [facility] 2021-04-04 2021-04-04 Travel [facility] [id number] [facility] 00:[facility]00 00:00:00 [facility] 2021-03-31 2021-04-02 Inpatient UR TAHIR, [facility] Cardiology [id number] [facility] 14:42:00 11:52:00 [facility] 2021-03-31 2021-04-02 [facility] [id number] 14:42:00 11:52:00 Encounter [facility] 2021-04-01 2021-04-01 [facility] [id number] 15:45:00 18:10:00 [facility] 2021-04-01 2021-04-01 Orders Deep [facility] [id number] 00:00:00 00:00:[address] [facility] 2021-03-31 2021-03-31 Outpatient [facility] [id number] [facility] 00:00:00 23:59:00 Dena 2021-03-31 2021-03-31 Orders [facility] [id number] 00:00:00 00:00:00 Only [facility] 2021-03-31 2021-03-31 Travel [facility] [id number] [facility] 00:[facility]:00 00:00:00 [facility] 2021-03-27 2021-03-27 [facility] [id number] Common 00:00:00 00:00:00 [facility] 2021-01-27 2021-01-27 [facility] [id number] Common 00:00:00 00:00:00 [facility] 2021-01-17 2021-01-17 Outpatient STLMLC STLMLC [id number] Common 00:00:00 00:00:00 [facility] 2020-12-27 2020-12-27 Outpatient STLMLC STLMLC [id number] Common 00:00:00 00:00:00 [facility] 2020-09-24 2020-09-24 Outpatient STLMLC STLMLC [id number] Common 00:00:00 00:00:00 [facility] 2020-09-18 2020-09-18 Outpatient STLMLC STLMLC [id number] Common 00:00:00 00:00:00 [facility] 2020-09-03 2020-09-03 Outpatient STLMLC STLMLC [id number] Common 00:00:00 00:00:00 [facility] 2020-06-24 2020-06-24 Outpatient STLMLC STLMLC [id number] Common 00:00:00 00:00:00 [facility] 2020-03-26 2020-03-26 Outpatient STLMLC STLMLC [id number] Common 00:00:00 00:00:00 [facility] 2020-01-25 2020-01-25 Outpatient STLMLC STLMLC [id number] Common 00:00:00 00:00:00 [facility] 2020-01-12 2020-01-12 Outpatient STLMLC STLMLC [id number] Common 00:00:00 00:00:00 [facility] 2020-01-08 2020-01-08 [id number] Common 11:00:00 11:00:[address] [facility] 2019-12-27 2019-12-27 [id number] Common 16:01:00 16:01:[address] [facility] 2019-12-25 2019-12-25 [facility] [id number] Common 10:20:00 10:20:[address] Family - [facility] Family Medicine [facility] Results Test Description Test Time Test Comments Results Result Comments Source Magnesium 2021-04-13 07:04:34 Test Item Value Reference Range Interpretation Comme nts Magnesium (test code = 19276-7) 2.1 mg/dL 1.6-2.6 BRITTANY (test code = BRITTANY) County Court Judge ID - PIAYA L Lab Interpretation (test code = 03110-6) [facility] 07:04:34 Test Item Value Reference Range Interpretation Comments MAGNESIUM (BEAKER) (test code = 2.1 mg/dL 1.6-2.6 627) County Court Judge ID - PIAYA LBasic Metabolic [id number] 07:04:33 Test Item Value Reference Range Interpretation Comments Sodium (test code = 135 meq/L 136-145 L 2951-2) Potassium (test code = 3.7 meq/L 3.5-5.1 2823-3) Chloride (test code = 102 meq/L 98-107 2075-0) CO2 (test code = 23 meq/L 22-29 2028-9) BUN (test code = 10 mg/dL 7-21 3094-0) Creatinine (test code 0.90 mg/dL 0.57-1.25 = 2160-0) Glucose (test code = 128 mg/dL 70-105 H 2345-7) Calcium (test code = 9.0 mg/dL 8.4-10.2 33183-5) EGFR (test code = 85 mL/min/1.73 [place] [address]-5) NOT ACCURATE CREATININE CLEARANCE IN PREDICTING GLOMERULAR FILTRATION RATE . ESTIMATED GFR I S NOT APPLICABLE FOR DIALYSIS PATIENTS. BRITTANY (test code = BRITTANY) County Court Judge ID - PIAYA L Lab Interpretation Abnormal (test code = 68565-9) [facility] [id number] 07:04:33 Test Item Value Reference Range Interpretation Comments SODIUM (BEAKER) 135 meq/L 136-145 L (test code = 381) POTASSIUM (BEAKER) 3.7 meq/L 3.5-5.1 (test code = 379) CHLORIDE (BEAKER) 102 meq/L 98-107 (test code = 382) CO2 (BEAKER) (test 23 meq/L 22-29 code = 355) BLOOD UREA NITROGEN 10 mg/dL 7-21 (BEAKER) (test code = 354) CREATININE (BEAKER) 0.90 mg/dL 0.57-1.25 (test code = 358) GLUCOSE RANDOM 128 mg/dL 70-105 H (BEAKER) (test code = 652) CALCIUM (BEAKER) 9.0 mg/dL 8.4-10.2 (test code = 697) EGFR (BEAKER) (test 85 mL/min/1.73 ESTIMA KATHY GFR IS code = 1092) sq m NOT ACCURATE CREATININE CLEARANCE IN PREDICTING GLOMERULAR FILTRATION RATE . ESTIMATED GFR I S NOT APPLICABLE FOR DIALYSIS PATIEN TS. County Court Judge ID - PIAYA LCBC with platelet count + automated [id number] 05:39:04 Test Item Value Reference Range Interpretation Comments WBC (test code = 6690-2) 6.1 See_Comment [A utomated message] The system [employer] generated this result transmitted ref erence range: 3.5 - 10 .5 K/L. The refe rence range was not u sed to interpret this result as normal/abnor mal. RBC (test code = 789-8) 2.97 See_Comment L [Au tomated message] The system [employer] generated this result transmitted ref erence range: 4.63 - 6 .08 M/L. The refe rence range was not u sed to interpret this result as normal/abnor mal. MCHC (test code = 786-4) 32.3 See_Comment L [A utomated message] The system [employer] generated this result transmitted ref erence range: 32.3 - 3 6.5 GM/DL. The refe rence range was not u sed to interpret this result as normal/abnor mal. Hematocrit (test code = 28.2 % 40.1-51.0 L 4544-3) MCV (test code = 787-2) 94.9 fL 79.0-92.2 H MCH (test code = 785-6) 30.6 pg 25.7-32.2 RDW (test code = 788-0) 12.8 % 11.6-14.4 Platelets (test code = 217 See_Comment [Aut omated message] 777-3) The system [employer] generated this result transmitted ref erence range: 150 - 45 0 K/CU MM. The referen ce range was not u sed to interpret this result as normal/abnor mal. MPV (test code = 10.0 fL 9.4-12.4 86979-3) nRBC (test code = 413) 0 See_Comment [Aut omated message] The system [employer] generated this result transmitted ref erence range: 0 - 0 /1 00 WBC. The refere nce range was not u sed to interpret this result as normal/abnor mal. % Neutros (test code = 64 % 429) % Lymphs (test code = 25 % 430) % Monos (test code = 5 % 431) % Eos (test code = 432) 5 % % Baso (test code = 437) 1 % # Neutros (test code = 3.90 See_Comment [Aut omated message] 670) The system [employer] generated this result transmitted ref erence range: 1.78 - 5 .38 K/L. The refe rence range was not u sed to interpret this result as normal/abnor mal. # Lymphs (test code = 1.51 See_Comment [Auto mated message] 414) The system [employer] generated this result transmitted ref erence range: 1.32 - 3 .57 K/L. The refe rence range was not u sed to interpret this result as normal/abnor mal. # Monos (test code = 0.30 See_Comment [Autom ated message] 415) The system [employer] generated this result transmitted ref erence range: 0.30 - 0 .82 K/L. The refe rence range was not u sed to interpret this result as normal/abnor mal. # Eos (test code = 416) 0.33 See_Comment [Au tomated message] The system [employer] generated this result transmitted ref erence range: 0.04 - 0 .54 K/L. The refe rence range was not u sed to interpret this result as normal/abnor mal. # Baso (test code = 417) 0.04 See_Comment [A utomated message] The system [employer] generated this result transmitted ref erence range: 0.01 - 0 .08 K/L. The refe rence range was not u sed to interpret this result as normal/abnor mal. Immature 0 % 0-1 Granulocytes-Relative (test code = 2801) Lab Interpretation (test Abnormal code = 73356-3) [facility] W/PLT COUNT & AUTO [id number] 05:39:04 Test Item Value Reference Range Interpretation Comments WHITE BLOOD CELL COUNT (BEAKER) 6.1 K/ L 3.5-10.5 (test code = 775) RED BLOOD CELL COUNT (BEAKER) 2.97 M/ L 4.63-6.08 L (test code = 761) HEMOGLOBIN (BEAKER) (test code = 9.1 GM/DL 13.7-17.5 L 410) HEMATOCRIT (BEAKER) (test code = 28.2 % 40.1-51.0 L 411) MEAN CORPUSCULAR VOLUME (BEAKER) 94.9 fL 79.0-92.2 H (test code = 753) MEAN CORPUSCULAR HEMOGLOBIN 30.6 pg 25.7-32.2 (BEAKER) (test code = 751) MEAN CORPUSCULAR HEMOGLOBIN CONC 32.3 GM/DL 32.3-36.5 (BEAKER) (test code = 752) RED CELL DISTRIBUTION WIDTH 12.8 % 11.6-14.4 (BEAKER) (test code = 412) PLATELET COUNT (BEAKER) (test 217 K/CU MM 150-450 code = 756) MEAN PLATELET VOLUME (BEAKER) 10.0 fL 9.4-12.4 (test code = 754) NUCLEATED RED BLOOD CELLS 0 /100 WBC 0-0 (BEAKER) (test code = 413) NEUTROPHILS RELATIVE PERCENT 64 % (BEAKER) (test code = 429) LYMPHOCYTES RELATIVE PERCENT 25 % (BEAKER) (test code = 430) MONOCYTES RELATIVE PERCENT 5 % (BEAKER) (test code = 431) EOSINOPHILS RELATIVE PERCENT 5 % (BEAKER) (test code = 432) BASOPHILS RELATIVE PERCENT 1 % (BEAKER) (test code = 437) NEUTROPHILS ABSOLUTE COUNT 3.90 K/ L 1.78-5.38 (BEAKER) (test code = 670) LYMPHOCYTES ABSOLUTE COUNT 1.51 K/ L 1.32-3.57 (BEAKER) (test code = 414) MONOCYTES ABSOLUTE COUNT (BEAKER) 0.30 K/ L 0.30-0.82 (test code = 415) EOSINOPHILS ABSOLUTE COUNT 0.33 K/ L 0.04-0.54 (BEAKER) (test code = 416) BASOPHILS ABSOLUTE COUNT (BEAKER) 0.04 K/ L 0.01-0.08 (test code = 417) IMMATURE GRANULOCYTES-RELATIVE 0 % 0-1 PERCENT (BEAKER) (test code = 2801) SARS-CoV2/RT-PCR (Asymptomatic ONLY)2021-04-12 07:32:04 Test Item Value Reference Range Interpretation Comments SARS-COV2/RT-PCR (test Negative Negative code = 73151-9) BRITTANY (test code = BRITTANY) Negative result for this test determines that SARS-CoV-2 RNA was not present in the specimen above the Limit of Detection (LOD). However, Negative results do not preclude SARS-CoV-2 infection and should not be used as the sole basis for treatment or patient management decisions. Negative results must be combined with clinical observations, patient history, and epidemiological information. A false negative result may occur if a specimen is improperly collected, transported, or handled. A false negative result should be considered if patient's recent exposures or clinical presentation indicate that COVID-19 (SARS-CoV-2) is likely and diagnostic tests for other causes of illness are negative. Re-testing should be considered in cases of suspected false negatives. The limit of detection for this assay is 100 copies/mL. This SARS-CoV-2 test is a real-time RT_PCR test intended for the qualitative detection of nucleic acid from SARS-CoV-2 in a nasopharyngeal swab specimen collected from individuals suspected of COVID-19 by their healthcare provider. This test has not been Food and Drug Administration (FDA) cleared or approved. This is a modified version of an approved Emergency Use Authorization (EUA) and is in the process of review by the FDA. Once authorized by the FDA, the issued EUA will be effective until the declaration that circumstances exist justifying the authorization of the emergency use of in vitro diagnostic tests for detection and/or diagnosis of COVID-19 is terminated under Section 564(b)(2) of the Act or the EUA is revoked under Section 564(g) of the Act. Testing was performed using the [employer] SARS-CoV-2 assay. Fact Sheet for Healthcare Providers:https://www.johana perez/evonne/RT SARS-CoV-2 HCP Fact Sheet 51-639083.pdf Fact Sheet for Healthcare Patients:https://www.efra marti/evonne/RT SARS-CoV-2 Patient Fact Sheet EN 51-858868F1.pdf Lab Interpretation Normal (test code = 27424-0) [facility]2021-04-12 07:32:04 Test Item Value Reference Range Interpretation Comments SARS-COV2/RT-PCR (test code = Negative Negative 3974271) Negative result for this test determines that SARS-CoV-2 RNA was not present in the specimen above the Limit of Detection (LOD). However, Negative results do not preclude SARS-CoV-2 infection and should not be used as the sole basis for treatment or patient management decisions. Negative results must be combined with clinical observations, patient history, and epidemiological information. A false negative result may occur if a specimen is improperly collected, transported, or handled. A false negative result should be considered if patient's recent exposures or clinical presentation indicate that COVID-19 (SARS-CoV-2) is likely and diagnostic tests for other causes of illness are negative. Re-testing should be considered in cases of suspected false negatives.The limit of detection for this assay is 100 copies/mL.This SARS-CoV-2 test is a real-time RT_PCR test intended for the qualitative detection of nucleic acid from SARS-CoV-2 in a nasopharyngeal swab specimen collected from individuals suspected of COVID-19 by their healthcare provider.This test has not been Food and Drug Administration (FDA) cleared or approved. This is a modified version of an approved Emergency Use Authorization (EUA) and is in the process of review by the FDA. Once authorized by the FDA, the issued EUA will be effective until the declaration that circumstances exist justifying the authorization of the emergency use of in vitro diagnostic tests for detection and/or diagnosis of COVID-19 is terminated under Section 564(b)(2) of the Act or the EUA is revoked under Section 564(g) of the Act.Testing was performed using [employer] SARS-CoV-2 assay.Fact Sheet for Healthcare Providers:https://www.[employer]/evonne/RT SARS-CoV-2 HCP Fact Sheet 51- 040598.pdfFact Sheet for Healthcare Patients:https://www.molecular.alvares/evonne/RT SARS-CoV-2 Patient Fact Sheet EN 51-265827O6.[id number] 06:37:52 Test Item Value Reference Range Interpretation Comments MAGNESIUM (BEAKER) (test code = 1.9 mg/dL 1.6-2.6 627) County Court Judge ID - CINDA GOperator ID - CINDA GB-type Natriuretic Factor (BNP) 2021-04-12 05:32:25 Test Item Value Reference Range Interpretation Comments BNP (test code = 50500-4) 93 pg/mL 0-100 BRITTANY (test code = BRITTANY) [place] Court Judge ID - CINDA G Lab Interpretation (test Normal code = 25662-0) [facility]2021-04-12 05:32:25 Test Item Value Reference Range Interpretation Comments B-TYPE NATRIURETIC PEPTIDE (BEAKER) 93 pg/mL 0-100 (test code = 700) [place] [facility] Judge ID - CINDA GBASIC METABOLIC [id number] 05:29:05 Test Item Value Reference Range Interpretation Comments SODIUM (BEAKER) 137 meq/L 136-145 (test code = 381) POTASSIUM (BEAKER) 4.0 meq/L 3.5-5.1 (test code = 379) CHLORIDE (BEAKER) 104 meq/L 98-107 (test code = 382) CO2 (BEAKER) (test 25 meq/L 22-29 code = 355) BLOOD UREA NITROGEN 11 mg/dL 7-21 (BEAKER) (test code = 354) CREATININE (BEAKER) 0.84 mg/dL 0.57-1.25 (test code = 358) GLUCOSE RANDOM 101 mg/dL 70-105 (BEAKER) (test code = 652) CALCIUM (BEAKER) 8.6 mg/dL 8.4-10.2 (test code = 697) EGFR (BEAKER) (test 92 mL/min/1.73 ESTIMA KATHY GFR IS code = 1092) sq m NOT ACCURATE CREATININE CLEARANCE IN PREDICTING GLOMERULAR FILTRATION RATE . ESTIMATED GFR I S NOT APPLICABLE FOR DIALYSIS PATIEN TS. County Court Judge ID - CINDA GCBC W/PLT COUNT & AUTO [id number] 05:08:28 Test Item Value Reference Range Interpretation Comments WHITE BLOOD CELL COUNT (BEAKER) 4.3 K/ L 3.5-10.5 (test code = 775) RED BLOOD CELL COUNT (BEAKER) 2.65 M/ L 4.63-6.08 L (test code = 761) HEMOGLOBIN (BEAKER) (test code = 8.4 GM/DL 13.7-17.5 L 410) HEMATOCRIT (BEAKER) (test code = 25.3 % 40.1-51.0 L 411) MEAN CORPUSCULAR VOLUME (BEAKER) 95.5 fL 79.0-92.2 H (test code = 753) MEAN CORPUSCULAR HEMOGLOBIN 31.7 pg 25.7-32.2 (BEAKER) (test code = 751) MEAN CORPUSCULAR HEMOGLOBIN CONC 33.2 GM/DL 32.3-36.5 (BEAKER) (test code = 752) RED CELL DISTRIBUTION WIDTH 12.9 % 11.6-14.4 (BEAKER) (test code = 412) PLATELET COUNT (BEAKER) (test 176 K/CU MM 150-450 code = 756) MEAN PLATELET VOLUME (BEAKER) 9.9 fL 9.4-12.4 (test code = 754) NUCLEATED RED BLOOD CELLS 0 /100 WBC 0-0 (BEAKER) (test code = 413) NEUTROPHILS RELATIVE PERCENT 59 % (BEAKER) (test code = 429) LYMPHOCYTES RELATIVE PERCENT 27 % (BEAKER) (test code = 430) MONOCYTES RELATIVE PERCENT 7 % (BEAKER) (test code = 431) EOSINOPHILS RELATIVE PERCENT 6 % (BEAKER) (test code = 432) BASOPHILS RELATIVE PERCENT 1 % (BEAKER) (test code = 437) NEUTROPHILS ABSOLUTE COUNT 2.54 K/ L 1.78-5.38 (BEAKER) (test code = 670) LYMPHOCYTES ABSOLUTE COUNT 1.15 K/ L 1.32-3.57 L (BEAKER) (test code = 414) MONOCYTES ABSOLUTE COUNT (BEAKER) 0.31 K/ L 0.30-0.82 (test code = 415) EOSINOPHILS ABSOLUTE COUNT 0.25 K/ L 0.04-0.54 (BEAKER) (test code = 416) BASOPHILS ABSOLUTE COUNT (BEAKER) 0.02 K/ L 0.01-0.08 (test code = 417) IMMATURE GRANULOCYTES-RELATIVE 0 % 0-1 PERCENT (BEAKER) (test code = 2801) 2D Echo W/Doppler(CW/PW/Color)2021-04-11 12:41:59Ejection FractionSLEH ECHO HEARTLAB MKCKESSON CPACSCHI [facility] [id number] 04:21:13 Test Item Value Reference Range Interpretation Comments MAGNESIUM (BEAKER) (test code = 2.0 mg/dL 1.6-2.6 627) County Court Judge ID - PIAYA LBASIC METABOLIC [id number] 04:21:12 Test Item Value Reference Range Interpretation Comments SODIUM (BEAKER) 136 meq/L 136-145 (test code = 381) POTASSIUM (BEAKER) 3.5 meq/L 3.5-5.1 (test code = 379) CHLORIDE (BEAKER) 103 meq/L 98-107 (test code = 382) CO2 (BEAKER) (test 24 meq/L 22-29 code = 355) BLOOD UREA NITROGEN 11 mg/dL 7-21 (BEAKER) (test code = 354) CREATININE (BEAKER) 0.75 mg/dL 0.57-1.25 (test code = 358) GLUCOSE RANDOM 108 mg/dL 70-105 H (BEAKER) (test code = 652) CALCIUM (BEAKER) 8.4 mg/dL 8.4-10.2 (test code = 697) EGFR (BEAKER) (test 105 mL/min/1.73 ESTIM ATED GFR IS code = 1092) sq m NOT ACCURATE CREATININE CLEARANCE IN PREDICTING GLOMERULAR FILTRATION RATE . ESTIMATED GFR I S NOT APPLICABLE FOR DIALYSIS PATIEN TS. County Court Judge ID - PIAYA LCBC W/PLT COUNT & AUTO [id number] 03:56:43 Test Item Value Reference Range Interpretation Comments WHITE BLOOD CELL COUNT (BEAKER) 4.6 K/ L 3.5-10.5 (test code = 775) RED BLOOD CELL COUNT (BEAKER) 2.96 M/ L 4.63-6.08 L (test code = 761) HEMOGLOBIN (BEAKER) (test code = 9.1 GM/DL 13.7-17.5 L 410) HEMATOCRIT (BEAKER) (test code = 29.6 % 40.1-51.0 L 411) MEAN CORPUSCULAR VOLUME (BEAKER) 100.0 fL 79.0-92.2 H (test code = 753) MEAN CORPUSCULAR HEMOGLOBIN 30.7 pg 25.7-32.2 (BEAKER) (test code = 751) MEAN CORPUSCULAR HEMOGLOBIN CONC 30.7 GM/DL 32.3-36.5 L (BEAKER) (test code = 752) RED CELL DISTRIBUTION WIDTH 12.8 % 11.6-14.4 (BEAKER) (test code = 412) PLATELET COUNT (BEAKER) (test 165 K/CU MM 150-450 code = 756) MEAN PLATELET VOLUME (BEAKER) 10.1 fL 9.4-12.4 (test code = 754) NUCLEATED RED BLOOD CELLS 0 /100 WBC 0-0 (BEAKER) (test code = 413) NEUTROPHILS RELATIVE PERCENT 65 % (BEAKER) (test code = 429) LYMPHOCYTES RELATIVE PERCENT 23 % (BEAKER) (test code = 430) MONOCYTES RELATIVE PERCENT 8 % (BEAKER) (test code = 431) EOSINOPHILS RELATIVE PERCENT 5 % (BEAKER) (test code = 432) BASOPHILS RELATIVE PERCENT 0 % (BEAKER) (test code = 437) NEUTROPHILS ABSOLUTE COUNT 2.93 K/ L 1.78-5.38 (BEAKER) (test code = 670) LYMPHOCYTES ABSOLUTE COUNT 1.03 K/ L 1.32-3.57 L (BEAKER) (test code = 414) MONOCYTES ABSOLUTE COUNT (BEAKER) 0.34 K/ L 0.30-0.82 (test code = 415) EOSINOPHILS ABSOLUTE COUNT 0.21 K/ L 0.04-0.54 (BEAKER) (test code = 416) BASOPHILS ABSOLUTE COUNT (BEAKER) 0.02 K/ L 0.01-0.08 (test code = 417) IMMATURE GRANULOCYTES-RELATIVE 0 % 0-1 PERCENT (BEAKER) (test code = 2801) RAD, CHEST, 1 VIEW, NON [id number] 09:38:00while patient is intubated or has chest tubes.Reason for exam:->Status post CV SurgeryShould thisbe performed at the bedside?->Yes [facility]ENTERName: [facility]Y [facility] : 1955 Sex: MFINAL REPORT TECHNIQUE: Frontal view of the chest. INDICATION: Status post CV Surgery COMPARISON:Prior day. DISCUSSION:Limited evaluation due to portable technique. Lines and hardware: Interval removal of the chest tubes.Heart and mediastinum: Stable.Lungs and pleura: Stable low lungvolumes with diffuse interstitial airspace opacities. Streaky basilar airspace opacities are noted, most prominent at the left lung base. Small left effusion is noted. Question trace right effusion. Negative for pneumothorax.Soft tissues and bones: No acute abnormality. IMPRESSION:Interval removal of the chest tubes. Negative for pneumothorax.Stable bilateral interstitial airspace disease and small left basilar consolidation/effusion. Signed: Demetris Power MDRepjosafat Verified Date/Time: 04/10/2021 09:38:16 Reading Location: [facility] Radiology Reading Room MAGNESIUM 2021-04-10 04:45:25 Test Item Value Reference Range Interpretation Comments MAGNESIUM (BEAKER) (test code = 1.9 mg/dL 1.6-2.6 627) County Court Judge ID - PIAYA LBASIC METABOLIC [id number] 04:45:24 Test Item Value Reference Range Interpretation Comments SODIUM (BEAKER) 138 meq/L 136-145 (test code = 381) POTASSIUM (BEAKER) 3.4 meq/L 3.5-5.1 L (test code = 379) CHLORIDE (BEAKER) 105 meq/L 98-107 (test code = 382) CO2 (BEAKER) (test 25 meq/L 22-29 code = 355) BLOOD UREA NITROGEN 11 mg/dL 7-21 (BEAKER) (test code = 354) CREATININE (BEAKER) 0.74 mg/dL 0.57-1.25 (test code = 358) GLUCOSE RANDOM 104 mg/dL 70-105 (BEAKER) (test code = 652) CALCIUM (BEAKER) 8.7 mg/dL 8.4-10.2 (test code = 697) EGFR (BEAKER) (test 106 mL/min/1.73 ESTIM ATED GFR IS code = 1092) sq m NOT ACCURATE CREATININE CLEARANCE IN PREDICTING GLOMERULAR FILTRATION RATE . ESTIMATED GFR I S NOT APPLICABLE FOR DIALYSIS PATIEN TS. County Court Judge ID - EB LB-TYPE NATRIURETIC FACTOR (BNP)2021-04-10 04:33:59 Test Item Value Reference Range Interpretation Comments B-TYPE NATRIURETIC PEPTIDE (BEAKER) 267 pg/mL 0-100 H (test code = 700) County Court Judge ID - EB LCBC W/PLT COUNT & AUTO [id number] 04:10:30 Test Item Value Reference Range Interpretation Comments WHITE BLOOD CELL COUNT (BEAKER) 5.9 K/ L 3.5-10.5 (test code = 775) RED BLOOD CELL COUNT (BEAKER) 2.94 M/ L 4.63-6.08 L (test code = 761) HEMOGLOBIN (BEAKER) (test code = 9.2 GM/DL 13.7-17.5 L 410) HEMATOCRIT (BEAKER) (test code = 29.4 % 40.1-51.0 L 411) MEAN CORPUSCULAR VOLUME (BEAKER) 100.0 fL 79.0-92.2 H (test code = 753) MEAN CORPUSCULAR HEMOGLOBIN 31.3 pg 25.7-32.2 (BEAKER) (test code = 751) MEAN CORPUSCULAR HEMOGLOBIN CONC 31.3 GM/DL 32.3-36.5 L (BEAKER) (test code = 752) RED CELL DISTRIBUTION WIDTH 12.7 % 11.6-14.4 (BEAKER) (test code = 412) PLATELET COUNT (BEAKER) (test 149 K/CU MM 150-450 L code = 756) MEAN PLATELET VOLUME (BEAKER) 9.9 fL 9.4-12.4 (test code = 754) NUCLEATED RED BLOOD CELLS 0 /100 WBC 0-0 (BEAKER) (test code = 413) NEUTROPHILS RELATIVE PERCENT 75 % (BEAKER) (test code = 429) LYMPHOCYTES RELATIVE PERCENT 16 % (BEAKER) (test code = 430) MONOCYTES RELATIVE PERCENT 5 % (BEAKER) (test code = 431) EOSINOPHILS RELATIVE PERCENT 4 % (BEAKER) (test code = 432) BASOPHILS RELATIVE PERCENT 0 % (BEAKER) (test code = 437) NEUTROPHILS ABSOLUTE COUNT 4.43 K/ L 1.78-5.38 (BEAKER) (test code = 670) LYMPHOCYTES ABSOLUTE COUNT 0.92 K/ L 1.32-3.57 L (BEAKER) (test code = 414) MONOCYTES ABSOLUTE COUNT (BEAKER) 0.28 K/ L 0.30-0.82 L (test code = 415) EOSINOPHILS ABSOLUTE COUNT 0.22 K/ L 0.04-0.54 (BEAKER) (test code = 416) BASOPHILS ABSOLUTE COUNT (BEAKER) 0.02 K/ L 0.01-0.08 (test code = 417) IMMATURE GRANULOCYTES-RELATIVE 1 % 0-1 PERCENT (BEAKER) (test code = 2801) CALCIUM, [id number] 04:07:31 Test Item Value Reference Range Interpretation Comments CALCIUM IONIZED (BEAKER) (test 1.09 mmol/L 1.12-1.27 L code = 698) PH, BLOOD (BEAKER) (test code = 7.42 1810) Prepare Leuko-Red [id number] 23:54:00 Test Item Value Reference Range Interpretation Comments CROSSMATCH (test code = 2264) COMPATIBLE Unit ABO (test code = O Neg [id number]) UNIT NUMBER (test code = [id number] 934-0) Status (test code = 1663781) TX_TIMEINCHART Blood Bank Product (test code RED BLOOD CELLS = 2263) PRODUCT CODE (test code = E4348E30 933-2) [facility], NON [id number] 08:16:00while patient is intubated or has chest tubes.Reason for exam:->Status post CV SurgeryShould thisbe performed at the bedside?->Yes [facility] 1955 Sex: MFINAL REPORT CLINICAL HISTORY: Status post CV Surgery TECHNIQUE: 1 view of the chest. COMPARISON: 04/08/2021 IMPRESSION: The right jugular line has been removed. The three chest tubesremain. There is no pneumothorax. Low lung volumes are again seen with diffuse bilateral interstitial lung opacities, grossly unchanged. Small pleural effusions are again suspected. The cardiomediastinal silhouette is magnified by technique with sternotomy wires. Mild elevation of left hemidiaphragm is again seen with gaseous distention in the left upper quadrant. Signed: Mikie Darby MDRort Verified Date/Time: 04/09/2021 08:16:33 Reading Location: [facility] Radiology Reading Room [id number] 05:51:38 Test Item Value Reference Range Interpretation Comments MAGNESIUM (BEAKER) (test code = 2.0 mg/dL 1.6-2.6 627) County Court Judge ID - DEVEN [id number] 05:51:38 Test Item Value Reference Range Interpretation Comments PHOSPHORUS (BEAKER) (test code = 2.5 mg/dL 2.3-4.7 604) [place] Court Judge ID - DEVEN MBASIC METABOLIC [id number] 05:51:37 Test Item Value Reference Range Interpretation Comments SODIUM (BEAKER) 135 meq/L 136-145 L (test code = 381) POTASSIUM (BEAKER) 3.8 meq/L 3.5-5.1 (test code = 379) CHLORIDE (BEAKER) 106 meq/L 98-107 (test code = 382) CO2 (BEAKER) (test 21 meq/L 22-29 L code = 355) BLOOD UREA NITROGEN 10 mg/dL 7-21 (BEAKER) (test code = 354) CREATININE (BEAKER) 0.78 mg/dL 0.57-1.25 (test code = 358) GLUCOSE RANDOM 158 mg/dL 70-105 H (BEAKER) (test code = 652) CALCIUM (BEAKER) 8.3 mg/dL 8.4-10.2 L (test code = 697) EGFR (BEAKER) (test 100 mL/min/1.73 ESTIM ATED GFR IS code = 1092) sq m NOT ACCURATE CREATININE CLEARANCE IN PREDICTING GLOMERULAR FILTRATION RATE . ESTIMATED GFR I S NOT APPLICABLE FOR DIALYSIS PATIEN TS. County Court Judge ID - DEVEN MCALCIUM, [id number] 04:18:49 Test Item Value Reference Range Interpretation Comments CALCIUM IONIZED (BEAKER) (test 1.12 mmol/L 1.12-1.27 code = 698) PH, BLOOD (BEAKER) (test code = 7.43 1810) CBC (HEMOGRAM ONLY)2021-04-09 03:55:04 Test Item Value Reference Range Interpretation Comments WHITE BLOOD CELL COUNT (BEAKER) 7.8 K/ L 3.5-10.5 (test code = 775) RED BLOOD CELL COUNT (BEAKER) 2.84 M/ L 4.63-6.08 L (test code = 761) HEMOGLOBIN (BEAKER) (test code = 8.9 GM/DL 13.7-17.5 L 410) HEMATOCRIT (BEAKER) (test code = 28.3 % 40.1-51.0 L 411) MEAN CORPUSCULAR VOLUME (BEAKER) 99.6 fL 79.0-92.2 H (test code = 753) MEAN CORPUSCULAR HEMOGLOBIN 31.3 pg 25.7-32.2 (BEAKER) (test code = 751) MEAN CORPUSCULAR HEMOGLOBIN CONC 31.4 GM/DL 32.3-36.5 L (BEAKER) (test code = 752) RED CELL DISTRIBUTION WIDTH 13.0 % 11.6-14.4 (BEAKER) (test code = 412) PLATELET COUNT (BEAKER) (test 140 K/CU MM 150-450 L code = 756) MEAN PLATELET VOLUME (BEAKER) 10.0 fL 9.4-12.4 (test code = 754) NUCLEATED RED BLOOD CELLS 0 /100 WBC 0-0 (BEAKER) (test code = 413) CBC (HEMOGRAM ONLY)2021-04-08 13:48:58 Test Item Value Reference Range Interpretation Comments WHITE BLOOD CELL COUNT (BEAKER) 6.5 K/ L 3.5-10.5 (test code = 775) RED BLOOD CELL COUNT (BEAKER) 2.74 M/ L 4.63-6.08 L (test code = 761) HEMOGLOBIN (BEAKER) (test code = 8.5 GM/DL 13.7-17.5 L 410) HEMATOCRIT (BEAKER) (test code = 27.0 % 40.1-51.0 L 411) MEAN CORPUSCULAR VOLUME (BEAKER) 98.5 fL 79.0-92.2 H (test code = 753) MEAN CORPUSCULAR HEMOGLOBIN 31.0 pg 25.7-32.2 (BEAKER) (test code = 751) MEAN CORPUSCULAR HEMOGLOBIN CONC 31.5 GM/DL 32.3-36.5 L (BEAKER) (test code = 752) RED CELL DISTRIBUTION WIDTH 12.9 % 11.6-14.4 (BEAKER) (test code = 412) PLATELET COUNT (BEAKER) (test 113 K/CU MM 150-450 L code = 756) MEAN PLATELET VOLUME (BEAKER) 9.7 fL 9.4-12.4 (test code = 754) NUCLEATED RED BLOOD CELLS 0 /100 WBC 0-0 (BEAKER) (test code = 413) MISCELLANEOUS LAB [id number] 09:03:18 Test Item Value Reference Range Interpretation Comments SCAN RESULT (test code = See scanned report [id number]) See scanned [id number] 09:03:01 Test Item Value Reference Range Interpretation Comments Scan Result (test code = See scanned report [id number]) BRITTANY (test code = BRITTANY) See scanned results [facility] CenterMISCELLANEOUS LAB [id number] 09:03:01 Test Item Value Reference Range Interpretation Comments SCAN RESULT (test code = See scanned report [id number]) See scanned resultsLactic Acid, [id number] 06:35:41 Test Item Value Reference Range Interpretation Comments Lactate, Art (test code = 1.2 mmol/L 0.5-2.2 9364) BRITTANY (test code = BRITTANY) County Court Judge ID - DEVEN M Lab Interpretation (test Normal code = 01326-3) [facility] CenterLACTIC ACID, [id number] 06:35:41 Test Item Value Reference Range Interpretation Comments LACTATE BLOOD ARTERIAL (2) 1.2 mmol/L 0.5-2.2 (BEAKER) (test code = 2874) [place] Court Judge ID - DEVEN MUSCOGEEC-Glucose [id number] 06:34:30 Test Item Value Reference Range Interpretation Comments POC-Glucose Meter (test 134 mg/dL 70-110 H : TE STED AT [facility] code = 1538) [address] [facility], 7[address] 30: County Court Judge/Techni noel ID = [id number] for ImtiazAngelo Lab Interpretation (test Abnormal code = 15816-8) [facility] CenterPOCT-GLUCOSE [id number] 06:34:30 Test Item Value Reference Range Interpretation Comments POC-GLUCOSE METER 134 mg/dL 70-110 H : TESTED A T [facility] [address] (BEAKER) (test code = [facility], 1538) [address]: County Court Judge/Techni noel ID = [id number] for Alex teefarooqMaryed Hemoglobin and [id number] 06:30:38 Test Item Value Reference Range Interpretation Comments Hemoglobin (test code 7.3 See_Comment L [Auto mated = 786-4) message] The system which generated this result transmit kathy reference range : 13.7 - 17.5 GM/ DL. The reference range was not u sed to interpret th is result as normal/abnormal . Hematocrit (test code 22.5 % 40.1-51.0 L = 4544-3) BRITTANY (test code = BRITTANY) County Court Judge ID - [id number] Lab Interpretation Abnormal (test code = 42612-1) [facility] CenterHEMOGLOBIN AND [id number] 06:30:38 Test Item Value Reference Range Interpretation Comments HEMOGLOBIN (BEAKER) (test code = 7.3 GM/DL 13.7-17.5 L 410) HEMATOCRIT (BEAKER) (test code = 22.5 % 40.1-51.0 L 411) [place] Court Judge ID - [id number], CHEST, 1 VIEW, NON [id number] 04:56:00while patient is intubated or has chest tubes.Reason for exam:->Status post CV SurgeryShould thisbe performed at the bedside?->Yes [facility] 1955 Sex: MFINAL REPORT CLINICAL INDICATION: Postop Comparison: 04/07/2021 The cardiomediastinal contours are stable. The lung volumes have decreased slightly after extubation. Central pulmonaryvascular prominence and bilateral parenchymal opacities are similar within variation of lung volumes. There is no pneumothorax. Remaining support lines are stable. Signed: Kit Sims MDReport Verified Date/Time: 04/08/2021 04:56:45 [id number] 01:12:19 Test Item Value Reference Range Interpretation Comments PHOSPHORUS (BEAKER) (test code = 3.4 mg/dL 2.3-4.7 604) [place] Court Judge ID - PIAYA LBASIC METABOLIC [id number] 01:12:18 Test Item Value Reference Range Interpretation Comments SODIUM (BEAKER) 137 meq/L 136-145 (test code = 381) POTASSIUM (BEAKER) 4.4 meq/L 3.5-5.1 (test code = 379) CHLORIDE (BEAKER) 109 meq/L 98-107 H (test code = 382) CO2 (BEAKER) (test 20 meq/L 22-29 L code = 355) BLOOD UREA NITROGEN 10 mg/dL 7-21 (BEAKER) (test code = 354) CREATININE (BEAKER) 0.86 mg/dL 0.57-1.25 (test code = 358) GLUCOSE RANDOM 126 mg/dL 70-105 H (BEAKER) (test code = 652) CALCIUM (BEAKER) 8.4 mg/dL 8.4-10.2 (test code = 697) EGFR (BEAKER) (test 89 mL/min/1.73 ESTIMA KATHY GFR IS code = 1092) sq m NOT ACCURATE CREATININE CLEARANCE IN PREDICTING GLOMERULAR FILTRATION RATE . ESTIMATED GFR I S NOT APPLICABLE FOR DIALYSIS PATIEN TS. County Court Judge ID - EB [id number] 01:12:18 Test Item Value Reference Range Interpretation Comments MAGNESIUM (BEAKER) (test code = 1.9 mg/dL 1.6-2.6 627) County Court Judge ID - PIADAM LLACTIC ACID, [id number] 01:07:33 Test Item Value Reference Range Interpretation Comments LACTATE BLOOD ARTERIAL (2) 1.1 mmol/L 0.5-2.2 (BEAKER) (test code = 2874) [place] Court Judge ID - EB LCBC (HEMOGRAM ONLY)2021-04-08 01:03:18 Test Item Value Reference Range Interpretation Comments WHITE BLOOD CELL COUNT (BEAKER) 5.7 K/ L 3.5-10.5 (test code = 775) RED BLOOD CELL COUNT (BEAKER) 2.20 M/ L 4.63-6.08 L (test code = 761) HEMOGLOBIN (BEAKER) (test code = 6.9 GM/DL 13.7-17.5 L 410) HEMATOCRIT (BEAKER) (test code = 21.9 % 40.1-51.0 L 411) MEAN CORPUSCULAR VOLUME (BEAKER) 99.5 fL 79.0-92.2 H (test code = 753) MEAN CORPUSCULAR HEMOGLOBIN 31.4 pg 25.7-32.2 (BEAKER) (test code = 751) MEAN CORPUSCULAR HEMOGLOBIN CONC 31.5 GM/DL 32.3-36.5 L (BEAKER) (test code = 752) RED CELL DISTRIBUTION WIDTH 12.5 % 11.6-14.4 (BEAKER) (test code = 412) PLATELET COUNT (BEAKER) (test 108 K/CU MM 150-450 L code = 756) MEAN PLATELET VOLUME (BEAKER) 10.0 fL 9.4-12.4 (test code = 754) NUCLEATED RED BLOOD CELLS 0 /100 WBC 0-0 (BEAKER) (test code = 413) Blood gas, [id number] 00:53:12 Test Item Value Reference Range Interpretation Comments pH, Arterial (test code 7.43 7.35-7.45 = 2744-1) pCO2, Arterial (test 36 See_Comment [Autom ated code = 2019-8) message] The system which generated this result transmitted reference range : 35 - 45 mm Hg. The reference range was not used to interpret this result as normal/abnormal . pO2, Arterial (test 104 See_Comment H [Automa kathy code = 2703-7) message] The system which generated this result transmitted reference range : 80 - 90 mm Hg. The reference range was not used to interpret this result as normal/abnormal . O2 Sat, Arterial (test 97.7 % 96.0-97.0 H code = 2708-6) HCO3, Arterial (test 23 mmol/L 21-29 code = 1960-4) Base Excess, Arterial -0.9 mmol/L -2.0-3.0 (test code = 1925-7) Patient Temperature 37.9 (test code = 8310-5) FIO2 (test code = 1819) 36 Lab Interpretation Abnormal (test code = 58160-9) [facility] CenterCALCIUM, [id number] 00:53:12 Test Item Value Reference Range Interpretation Comments CALCIUM IONIZED (BEAKER) (test 1.07 mmol/L 1.12-1.27 L code = 698) PH, BLOOD (BEAKER) (test code = 7.44 1810) BLOOD GAS, [id number] 00:53:12 Test Item Value Reference Range Interpretation Comments PH ARTERIAL (BEAKER) (test code = 7.43 7.35-7.45 383) PCO2 ARTERIAL (BEAKER) (test code 36 mm Hg 35-45 = 384) PO2 ARTERIAL (BEAKER) (test code 104 mm Hg 80-90 H = 385) O2 SATURATION ARTERIAL (BEAKER) 97.7 % 96.0-97.0 H (test code = 386) HCO3 ARTERIAL (BEAKER) (test code 23 mmol/L 21-29 = 388) BASE EXCESS ARTERIAL (BEAKER) -0.9 mmol/L -2.0-3.0 (test code = 387) PATIENT TEMPERATURE (BEAKER) 37.9 (test code = 1818) FIO2 (BEAKER) (test code = 1819) 36.0 Oxygen saturation, [id number] 00:52:56 Test Item Value Reference Range Interpretation Comments O2 Saturation (Measured) (test code = 69.2 % 85088-4) [facility] CenterOXYGEN SATURATION, [id number] 00:52:56 Test Item Value Reference Range Interpretation Comments O2 SATURATION (MEASURED) (BEAKER) 69.2 % (test code = 1455) BLOOD GAS, [id number] 18:39:20 Test Item Value Reference Range Interpretation Comments PH ARTERIAL (BEAKER) (test code = 7.43 7.35-7.45 383) PCO2 ARTERIAL (BEAKER) (test code 34 mm Hg 35-45 L = 384) PO2 ARTERIAL (BEAKER) (test code 92 mm Hg 80-90 H = 385) O2 SATURATION ARTERIAL (BEAKER) 97.0 % 96.0-97.0 (test code = 386) HCO3 ARTERIAL (BEAKER) (test code 22 mmol/L 21-29 = 388) BASE EXCESS ARTERIAL (BEAKER) -1.2 mmol/L -2.0-3.0 (test code = 387) PATIENT TEMPERATURE (BEAKER) 37.9 (test code = 1818) FIO2 (BEAKER) (test code = 1819) 36.0 OXYGEN SATURATION, [id number] 17:04:14 Test Item Value Reference Range Interpretation Comments O2 SATURATION (MEASURED) (BEAKER) 72.0 % (test code = 1455) LACTIC ACID, [id number] 16:58:52 Test Item Value Reference Range Interpretation Comments LACTATE BLOOD 1.8 mmol/L 0.5-2.2 Specimen sligh tly ARTERIAL (2) (BEAKER) hemoly zed (test code = 2874) County Court Judge ID - CINDA GCALCIUM, [id number] 16:39:23 Test Item Value Reference Range Interpretation Comments CALCIUM IONIZED (BEAKER) (test 1.01 mmol/L 1.12-1.27 L code = 698) PH, BLOOD (BEAKER) (test code = 7.41 1810) BLOOD GAS, [id number] 16:38:26 Test Item Value Reference Range Interpretation Comments PH ARTERIAL (BEAKER) (test code = 7.41 7.35-7.45 383) PCO2 ARTERIAL (BEAKER) (test code 36 mm Hg 35-45 = 384) PO2 ARTERIAL (BEAKER) (test code 89 mm Hg 80-90 = 385) O2 SATURATION ARTERIAL (BEAKER) 96.9 % 96.0-97.0 (test code = 386) HCO3 ARTERIAL (BEAKER) (test code 23 mmol/L 21-29 = 388) BASE EXCESS ARTERIAL (BEAKER) -1.9 mmol/L -2.0-3.0 (test code = 387) PATIENT TEMPERATURE (BEAKER) 36.9 (test code = 1818) FIO2 (BEAKER) (test code = 1819) 40.0 [id number] 13:50:38 Test Item Value Reference Range Interpretation Comments MAGNESIUM (BEAKER) (test code = 2.2 mg/dL 1.6-2.6 627) [facility] Judge ID - [id number] 13:50:38 Test Item Value Reference Range Interpretation Comments PHOSPHORUS (BEAKER) (test code = 3.7 mg/dL 2.3-4.7 604) [facility] Judge ID - DBComprehensive metabolic [id number] 13:50:37 Test Item Value Reference Range Interpretation Comments Protein, Total (test 5.7 See_Comment L [Autom ated code = 2885-2) message] The system which generated this result transmit kathy reference range : 6.0 - 8.3 gm/dL . The reference range was not u sed to interpret th is result as normal/abnormal . Albumin (test code = 3.1 g/dL 3.5-5.0 L 86673-8) Alkaline Phosphatase 59 U/L 40-150 (test code = 6768-6) Total Bilirubin (test 0.9 mg/dL 0.2-1.2 code = 1975-2) Sodium (test code = 138 meq/L 135-789 2592-2) Potassium (test code 3.8 meq/L 3.5-5.1 = 2823-3) Chloride (test code = 109 meq/L 98-107 H 2074-0) CO2 (test code = 23 meq/L 22-29 2027-9) BUN (test code = 10 mg/dL 7-21 3094-0) Creatinine (test code 0.76 mg/dL 0.57-1.25 = 2160-0) Glucose (test code = 135 mg/dL 70-105 H 2345-7) Calcium (test code = 8.0 mg/dL 8.4-10.2 L 46664-2) AST (test code = 38 U/L 5-34 H 1920-8) ALT (test code = 17 U/L 6-55 1742-6) EGFR (test code = 103 mL/min/1.73 [place] [address]-2) NOT ACCURATE CREATININE CLEARANCE IN PREDICTING GLOMERULAR FILTRATION RATE . ESTIMATED GFR I S NOT APPLICABLE FOR DIALYSIS PATIEN TS. BRITTANY (test code = BRITTANY) [facility] Court Judge ID - DB Lab Interpretation Abnormal (test code = 35894-1) [facility] [id number] 13:50:37 Test Item Value Reference Range Interpretation Comments TOTAL PROTEIN 5.7 gm/dL 6.0-8.3 L (BEAKER) (test code = 770) ALBUMIN (BEAKER) 3.1 g/dL 3.5-5.0 L (test code = 1145) ALKALINE PHOSPHATASE 59 U/L 40-150 (BEAKER) (test code = 346) BILIRUBIN TOTAL 0.9 mg/dL 0.2-1.2 (BEAKER) (test code = 377) SODIUM (BEAKER) (test 138 meq/L 136-145 code = 381) POTASSIUM (BEAKER) 3.8 meq/L 3.5-5.1 (test code = 379) CHLORIDE (BEAKER) 109 meq/L 98-107 H (test code = 382) CO2 (BEAKER) (test 23 meq/L 22-29 code = 355) BLOOD UREA NITROGEN 10 mg/dL 7-21 (BEAKER) (test code = 354) CREATININE (BEAKER) 0.76 mg/dL 0.57-1.25 (test code = 358) GLUCOSE RANDOM 135 mg/dL 70-105 H (BEAKER) (test code = 652) CALCIUM (BEAKER) 8.0 mg/dL 8.4-10.2 L (test code = 697) AST (SGOT) (BEAKER) 38 U/L 5-34 H (test code = 353) ALT (SGPT) (BEAKER) 17 U/L 6-55 (test code = 347) EGFR (BEAKER) (test 103 ESTIMATE D GFR IS code = 1092) mL/min/1.73 sq NOT ACCURA TE m CREATININE CLEARANCE IN PREDICTING GLOMERULAR FILTRATION RATE . ESTIMATED GFR I S NOT APPLICABLE FOR DIALYSIS PATIEN TS. County Court Judge ID - DBLACTIC ACID, [id number] 13:45:28 Test Item Value Reference Range Interpretation Comments LACTATE BLOOD ARTERIAL (2) 1.5 mmol/L 0.5-2.2 (BEAKER) (test code = 2874) County Court Judge ID - DBCALCIUM, [id number] 13:40:37 Test Item Value Reference Range Interpretation Comments CALCIUM IONIZED (BEAKER) (test 1.11 mmol/L 1.12-1.27 L code = 698) PH, BLOOD (BEAKER) (test code = 7.32 1810) HGB/HCT (H&H)-Stat [id number] 13:40:36 Test Item Value Reference Range Interpretation Comments Hemoglobin (test code = 9.2 See_Comment L [Au tomated message] 786-4) The system [employer] generated this result transmitted ref erence range: 13.0 - 1 6.8 GM/DL. The refe rence range was not u sed to interpret this result as normal/abnor mal. Hematocrit (test code = 27.0 % 40.0-50.0 L 4544-3) Lab Interpretation (test Abnormal code = 02182-7) [facility] [id number] 13:40:36 Test Item Value Reference Range Interpretation Comments HEMOGLOBIN (BEAKER) (test code = 9.2 GM/DL 13.0-16.8 L 410) HEMATOCRIT (BEAKER) (test code = 27.0 % 40.0-50.0 L 411) Glucose-Stat [id number] 13:40:35 Test Item Value Reference Range Interpretation Comments Glucose (test code = 2345-7) 128 mg/dL 70-110 H Lab Interpretation (test code = Abnormal 45279-9) [facility] [id number] 13:40:35 Test Item Value Reference Range Interpretation Comments GLUCOSE RANDOM (BEAKER) (test code 128 mg/dL 70-110 H = 652) BLOOD GAS, [id number] 13:40:34 Test Item Value Reference Range Interpretation Comments PH ARTERIAL (BEAKER) (test code = 7.35 7.35-7.45 383) PCO2 ARTERIAL (BEAKER) (test code 43 mm Hg 35-45 = 384) PO2 ARTERIAL (BEAKER) (test code 112 mm Hg 80-90 H = 385) O2 SATURATION ARTERIAL (BEAKER) 98.2 % 96.0-97.0 H (test code = 386) HCO3 ARTERIAL (BEAKER) (test code 24 mmol/L 21-29 = 388) BASE EXCESS ARTERIAL (BEAKER) -2.5 mmol/L -2.0-3.0 L (test code = 387) PATIENT TEMPERATURE (BEAKER) 34.8 (test code = 1818) FIO2 (BEAKER) (test code = 1819) 60.0 Potassium-Stat [id number] 13:39:52 Test Item Value Reference Range Interpretation Comments Potassium (test code = 2823-3) 3.6 meq/L 3.6-5.5 Lab Interpretation (test code = Normal 91403-4) [facility] [id number] 13:39:52 Test Item Value Reference Range Interpretation Comments POTASSIUM (BEAKER) (test code = 3.6 meq/L 3.6-5.5 379) Sodium Na-Stat [id number] 13:39:51 Test Item Value Reference Range Interpretation Comments Sodium (test code = 2951-2) 138 meq/L 136-145 Lab Interpretation (test code = Normal 72148-9) [facility] [id number] 13:39:51 Test Item Value Reference Range Interpretation Comments SODIUM (BEAKER) (test code = 381) 138 meq/L 136-145 [id number] 13:39:49 Test Item Value Reference Range Interpretation Comments ACTIVATED CLOTTING TIME 583 sec : 74 -137 seconds, (BEAKER) (test code = Baseli ne: TESTED AT 441) [facility] [address] [facility] [place], [address]: County Court Judge/Techni noel ID = [id number] for TIM DANIELLE [id number] 13:39:49 Test Item Value Reference Range Interpretation Comments ACTIVATED CLOTTING TIME 535 sec : 74 -137 seconds, (BEAKER) (test code = Baseli ne: TESTED AT 441) [address], [address]: County Court Judge/Techni noel ID = [id number] for CELESTIN Y, TIM POC ACTIVATED CLOTTING [id number] 13:39:22 Test Item Value Reference Range Interpretation Comments Activated Clotting Time 136 sec : 74 -137 seconds, (test code = 441) Baseline: TESTED AT [address], [address]: County Court Judge/Techni noel ID = [id number] for CELESTIN Y, TIM [facility] CenterPOCT-[id number] 13:39:22 Test Item Value Reference Range Interpretation Comments ACTIVATED CLOTTING TIME 136 sec : 74 -137 seconds, (BEAKER) (test code = Baseli ne: TESTED AT 441) [address], [address]: County Court Judge/Techni noel ID = [id number] for CELESTIN Y, TIM [id number] 13:39:22 Test Item Value Reference Range Interpretation Comments ACTIVATED CLOTTING TIME 595 sec : 74 -137 seconds, (BEAKER) (test code = Baseli ne: TESTED AT 441) [address], [address]: County Court Judge/Techni noel ID = [id number] for CELESTIN Y, TIM [id number] 13:39:21 Test Item Value Reference Range Interpretation Comments ACTIVATED CLOTTING TIME 595 sec : 74 -137 seconds, (BEAKER) (test code = Baseli ne: TESTED AT 441) [address], [facility] 30: County Court Judge/Techni noel ID = [id number] for CELESTIN Y, TIM [id number] 13:34:28 Test Item Value Reference Range Interpretation Comments Fibrinogen (test code = 3255-7) 259 mg/dl 225-434 Lab Interpretation (test code = Normal 27998-2) [facility]eraPTT2021-[facility] 13:34:28 Test Item Value Reference Range Interpretation Comments PTT (test code = 74936-0) 34.4 See_Comment [ Automated message] The system [employer] generated this result transmitted ref erence range: 22.5 - 3 6.0 seconds. The re ference range was not u sed to interpret this result as normal/abnor mal. Lab Interpretation (test Normal code = 72075-3) [facility] CenterFIBRINOGEN2021-12-13 13:34:28 Test Item Value Reference Range Interpretation Comments FIBRINOGEN LEVEL (BEAKER) (test 259 mg/dl 225-434 code = 658) [id number] 13:34:28 Test Item Value Reference Range Interpretation Comments PARTIAL THROMBOPLASTIN TIME 34.4 seconds 22.5-36.0 (BEAKER) (test code = 760) Prothrombin time/[id number] 13:33:49 Test Item Value Reference Interpretation Comments Range Protime (test code = 18.3 See_Comment H [Autom ated 4742-2) message] The system which generated this result transmitted reference range : 11.9 - 14.2 seconds. The reference range was not used to interpret this result as normal/abnormal . INR (test code = 1.54 See_Comment [Automated 4701-6) message] The system which generated this result transmitted reference range : <=5.90. The reference range was not used to interpret this result as normal/abnormal . BRITTANY (test code = RECOMMENDED BRITTANY) COUMADIN/WARFARIN INR THERAPY RANGESSTANDARD DOSE: 2.0 - 3.0 Includes: PROPHYLAXIS for venous thrombosis, systemic embolization; TREATMENT for venous thrombosis and/or pulmonary embolus.HIGH RISK: Target INR is 2.5-3.5 for patients with mechanical heart valves. Lab Interpretation Abnormal (test code = 32624-8) [facility] CenterPROTHROMBIN TIME/[id number] 13:33:49 Test Item Value Reference Range Interpretation Comments PROTIME (BEAKER) 18.3 seconds 11.9-14.2 H (test code = 759) INR (BEAKER) (test 1.54 See_Comment [Automat ed message] code = 370) The system [employer] generated this result transmitted ref erence range: <=5.90. The reference range was not used to int erpret this result as normal/abnormal . RECOMMENDED COUMADIN/WARFARIN INR THERAPY RANGESSTANDARD DOSE: 2.0 - 3.0 Includes: PROPHYLAXIS for venous thrombosis, systemic embolization; TREATMENT for venous thrombosis and/or pulmonary embolus.HIGH RISK: Target INR is 2.5-3.5 for patients with mechanical heart valves.CBC W/PLT COUNT & AUTO [id number] 13:27:47 Test Item Value Reference Range Interpretation Comments WHITE BLOOD CELL COUNT (BEAKER) 10.1 K/ L 3.5-10.5 (test code = 775) RED BLOOD CELL COUNT (BEAKER) 2.69 M/ L 4.63-6.08 L (test code = 761) HEMOGLOBIN (BEAKER) (test code = 8.5 GM/DL 13.7-17.5 L 410) HEMATOCRIT (BEAKER) (test code = 27.1 % 40.1-51.0 L 411) MEAN CORPUSCULAR VOLUME (BEAKER) 100.7 fL 79.0-92.2 H (test code = 753) MEAN CORPUSCULAR HEMOGLOBIN 31.6 pg 25.7-32.2 (BEAKER) (test code = 751) MEAN CORPUSCULAR HEMOGLOBIN CONC 31.4 GM/DL 32.3-36.5 L (BEAKER) (test code = 752) RED CELL DISTRIBUTION WIDTH 12.3 % 11.6-14.4 (BEAKER) (test code = 412) PLATELET COUNT (BEAKER) (test 124 K/CU MM 150-450 L code = 756) MEAN PLATELET VOLUME (BEAKER) 9.9 fL 9.4-12.4 (test code = 754) NUCLEATED RED BLOOD CELLS 0 /100 WBC 0-0 (BEAKER) (test code = 413) NEUTROPHILS RELATIVE PERCENT 78 % (BEAKER) (test code = 429) LYMPHOCYTES RELATIVE PERCENT 15 % (BEAKER) (test code = 430) MONOCYTES RELATIVE PERCENT 4 % (BEAKER) (test code = 431) EOSINOPHILS RELATIVE PERCENT 2 % (BEAKER) (test code = 432) BASOPHILS RELATIVE PERCENT 0 % (BEAKER) (test code = 437) NEUTROPHILS ABSOLUTE COUNT 7.87 K/ L 1.78-5.38 H (BEAKER) (test code = 670) LYMPHOCYTES ABSOLUTE COUNT 1.52 K/ L 1.32-3.57 (BEAKER) (test code = 414) MONOCYTES ABSOLUTE COUNT (BEAKER) 0.38 K/ L 0.30-0.82 (test code = 415) EOSINOPHILS ABSOLUTE COUNT 0.20 K/ L 0.04-0.54 (BEAKER) (test code = 416) BASOPHILS ABSOLUTE COUNT (BEAKER) 0.04 K/ L 0.01-0.08 (test code = 417) IMMATURE GRANULOCYTES-RELATIVE 0 % 0-1 PERCENT (BEAKER) (test code = 2801) CBC W/PLT COUNT & AUTO [id number] 13:26:16 Test Item Value Reference Range Interpretation Comments WHITE BLOOD CELL COUNT (BEAKER) 14.2 K/ L 3.5-10.5 H (test code = 775) RED BLOOD CELL COUNT (BEAKER) 2.64 M/ L 4.63-6.08 L (test code = 761) HEMOGLOBIN (BEAKER) (test code = 8.5 GM/DL 13.7-17.5 L 410) HEMATOCRIT (BEAKER) (test code = 26.6 % 40.1-51.0 L 411) MEAN CORPUSCULAR VOLUME (BEAKER) 100.8 fL 79.0-92.2 H (test code = 753) MEAN CORPUSCULAR HEMOGLOBIN 32.2 pg 25.7-32.2 (BEAKER) (test code = 751) MEAN CORPUSCULAR HEMOGLOBIN CONC 32.0 GM/DL 32.3-36.5 L (BEAKER) (test code = 752) RED CELL DISTRIBUTION WIDTH 12.3 % 11.6-14.4 (BEAKER) (test code = 412) PLATELET COUNT (BEAKER) (test 117 K/CU MM 150-450 L code = 756) MEAN PLATELET VOLUME (BEAKER) 10.0 fL 9.4-12.4 (test code = 754) NUCLEATED RED BLOOD CELLS 0 /100 WBC 0-0 (BEAKER) (test code = 413) NEUTROPHILS RELATIVE PERCENT 81 % (BEAKER) (test code = 429) LYMPHOCYTES RELATIVE PERCENT 16 % (BEAKER) (test code = 430) MONOCYTES RELATIVE PERCENT 1 % (BEAKER) (test code = 431) EOSINOPHILS RELATIVE PERCENT 2 % (BEAKER) (test code = 432) BASOPHILS RELATIVE PERCENT 0 % (BEAKER) (test code = 437) NEUTROPHILS ABSOLUTE COUNT 11.51 K/ L 1.78-5.38 H (BEAKER) (test code = 670) LYMPHOCYTES ABSOLUTE COUNT 2.22 K/ L 1.32-3.57 (BEAKER) (test code = 414) MONOCYTES ABSOLUTE COUNT (BEAKER) 0.15 K/ L 0.30-0.82 L (test code = 415) EOSINOPHILS ABSOLUTE COUNT 0.23 K/ L 0.04-0.54 (BEAKER) (test code = 416) BASOPHILS ABSOLUTE COUNT (BEAKER) 0.05 K/ L 0.01-0.08 (test code = 417) IMMATURE GRANULOCYTES-RELATIVE 0 % 0-1 PERCENT (BEAKER) (test code = 2801) RAD, CHEST, 1 VIEW, NON [id number] 13:10:00Reason for exam:->s/p ACBShould this be performed at the bedside?->Yes [facility] 1955 Sex: MFINAL REPORT CLINICAL HISTORY: s/p ACB TECHNIQUE: 1 view of the chest. COMPARISON:03/31/2021 IMPRESSION: The patient is status post median sternotomy with an endotracheal tube at the clavicles, a right central line at the cavoatrial junction, and midline and bilateral chest tubes. There is a nasogastric tube terminating just below the gastroesophageal junction and should be advanced. There is no pneumothorax. There is new pulmonary vascular congestion with left lower lung consolidation. There is a small left pleural effusion. Signed: Mikie Darby MDReport Verified Date/Time: 04/07/2021 13:10:24 Reading Location: [facility] Radiology Reading Room Prepare [id number] 13:06:00 Test Item Value Reference Range Interpretation Comments Unit ABO (test code = O Pos 7958583) UNIT NUMBER (test code = [id number] 934-0) Status (test code = RETURNED FROM ISSUE [id number]) Blood Bank Product (test RED BLOOD CELLS code = 2263) PRODUCT CODE (test code = H2692Y53 933-2) CROSSMATCH (test code = COMPATIBLE 2264) [facility]GLU[facility] [id number] 12:26:00 Test Item Value Reference Range Interpretation Comments GLUCOSE RANDOM (BEAKER) (test code 143 mg/dL 70-110 H = 652) HGB/HCT (H&H) - STAT [id number] 12:26:00 Test Item Value Reference Range Interpretation Comments HEMOGLOBIN (BEAKER) (test code = 9.6 GM/DL 13.0-16.8 L 410) HEMATOCRIT (BEAKER) (test code = 28.0 % 40.0-50.0 L 411) BLOOD GAS, [id number] 12:25:59 Test Item Value Reference Range Interpretation Comments PH ARTERIAL (BEAKER) (test code = 7.34 7.35-7.45 L 383) PCO2 ARTERIAL (BEAKER) (test code 44 mm Hg 35-45 = 384) PO2 ARTERIAL (BEAKER) (test code 81 mm Hg 80-90 = 385) O2 SATURATION ARTERIAL (BEAKER) 96.5 % 96.0-97.0 (test code = 386) HCO3 ARTERIAL (BEAKER) (test code 24 mmol/L 21-29 = 388) BASE EXCESS ARTERIAL (BEAKER) -2.7 mmol/L -2.0-3.0 L (test code = 387) PATIENT TEMPERATURE (BEAKER) 34.5 (test code = 1818) FIO2 (BEAKER) (test code = 1819) 60.0 Filter Ionized [id number] 12:24:55 Test Item Value Reference Range Interpretation Comments Filter Ionized Calcium 1.10 nnol/L (test code = 1994-) BRITTANY (test code = BRITTANY) Reference Range: No Normals [facility] ION[facility]ED [id number] 12:24:55 Test Item Value Reference Range Interpretation Comments FILTER IONIZED CALCIUM (BEAKER) 1.10 nnol/L (test code = 1854) Reference Range: No NormalsPOTASSIUM-STAT [id number] 12:24:31 Test Item Value Reference Range Interpretation Comments POTASSIUM (BEAKER) (test code = 3.5 meq/L 3.6-5.5 L 379) SODIUM NA-STAT [id number] 12:24:30 Test Item Value Reference Range Interpretation Comments SODIUM (BEAKER) (test code = 381) 138 meq/L 136-145 [id number] 12:08:24 Test Item Value Reference Range Interpretation Comments PARTIAL THROMBOPLASTIN TIME 37.3 seconds 22.5-36.0 H (BEAKER) (test code = 760) [id number] 12:08:06 Test Item Value Reference Range Interpretation Comments FIBRINOGEN LEVEL (BEAKER) (test 296 mg/dl 225-434 code = 658) PROTHROMBIN TIME/[id number] 12:07:25 Test Item Value Reference Range Interpretation Comments PROTIME (BEAKER) 19.4 seconds 11.9-14.2 H (test code = 759) INR (BEAKER) (test 1.66 See_Comment [Automat ed message] code = 370) The system [employer] generated this result transmitted ref erence range: <=5.90. The reference range was not used to int erpret this result as normal/abnormal . RECOMMENDED COUMADIN/WARFARIN INR THERAPY RANGESSTANDARD DOSE: 2.0 - 3.0 Includes: PROPHYLAXIS for venous thrombosis, systemic embolization; TREATMENT for venous thrombosis and/or pulmonary embolus.HIGH RISK: Target INR is 2.5-3.5 for patients with mechanical heart valves.[id number] 12:00:37 Test Item Value Reference Range Interpretation Comments PARTIAL THROMBOPLASTIN TIME > seconds 22.5-36.0 HH (BEAKER) (test code = 760) Platelet [id number] 11:59:10 Test Item Value Reference Range Interpretation Comments Platelets (test code 118 See_Comment L [Autom ated = 777-3) message] The system which generated this result transmit kathy reference range : 150 - 450 K/CU MM. The reference range was not u sed to interpret th is result as normal/abnormal . BRITTANY (test code = BRITTANY) County Court Judge ID - [id number] Lab Interpretation Abnormal (test code = 68862-1) [facility] CenterPLATELET [id number] 11:59:10 Test Item Value Reference Range Interpretation Comments PLATELET COUNT (BEAKER) (test 118 K/CU MM 150-450 L code = 756) County Court Judge ID - [id number]/HCT (H&H) - STAT [id number] 11:57:37 Test Item Value Reference Range Interpretation Comments HEMOGLOBIN (BEAKER) (test code = 9.4 GM/DL 13.0-16.8 L 410) HEMATOCRIT (BEAKER) (test code = 28.0 % 40.0-50.0 L 411) BLOOD GAS, [id number] 11:57:36 Test Item Value Reference Range Interpretation Comments PH ARTERIAL (BEAKER) (test code = 7.33 7.35-7.45 L 383) PCO2 ARTERIAL (BEAKER) (test code 40 mm Hg 35-45 = 384) PO2 ARTERIAL (BEAKER) (test code 85 mm Hg 80-90 = 385) O2 SATURATION ARTERIAL (BEAKER) 97.4 % 96.0-97.0 H (test code = 386) HCO3 ARTERIAL (BEAKER) (test code 22 mmol/L 21-29 = 388) BASE EXCESS ARTERIAL (BEAKER) -4.9 mmol/L -2.0-3.0 L (test code = 387) PATIENT TEMPERATURE (BEAKER) 31.9 (test code = 1818) FIO2 (BEAKER) (test code = 1819) 90.0 GLUCOSE-STAT [id number] 11:57:36 Test Item Value Reference Range Interpretation Comments GLUCOSE RANDOM (BEAKER) (test code 179 mg/dL 70-110 H = 652) CALCIUM, [id number] 11:55:06 Test Item Value Reference Range Interpretation Comments CALCIUM IONIZED (BEAKER) (test 1.18 mmol/L 1.12-1.27 code = 698) PH, BLOOD (BEAKER) (test code = 7.26 1810) POTASSIUM-STAT [id number] 11:54:23 Test Item Value Reference Range Interpretation Comments POTASSIUM (BEAKER) (test code = 3.8 meq/L 3.6-5.5 379) SODIUM NA-STAT [id number] 11:54:22 Test Item Value Reference Range Interpretation Comments SODIUM (BEAKER) (test code = 381) 136 meq/L 136-145 PROTHROMBIN TIME/[id number] 11:41:01 Test Item Value Reference Range Interpretation Comments PROTIME (BEAKER) 27.5 seconds 11.9-14.2 H (test code = 759) INR (BEAKER) (test 2.59 See_Comment [Automat ed message] code = 370) The system [employer] generated this result transmitted ref erence range: <=5.90. The reference range was not used to int erpret this result as normal/abnormal . RECOMMENDED COUMADIN/WARFARIN INR THERAPY RANGESSTANDARD DOSE: 2.0 - 3.0 Includes: PROPHYLAXIS for venous thrombosis, systemic embolization; TREATMENT for venous thrombosis and/or pulmonary embolus.HIGH RISK: Target INR is 2.5-3.5 for patients with mechanical heart valves.[id number] 11:41:01 Test Item Value Reference Range Interpretation Comments FIBRINOGEN LEVEL (BEAKER) (test 269 mg/dl 225-434 code = 658) CBC (HEMOGRAM ONLY)2021-04-07 11:38:14 Test Item Value Reference Range Interpretation Comments WHITE BLOOD CELL COUNT (BEAKER) 9.7 K/ L 3.5-10.5 (test code = 775) RED BLOOD CELL COUNT (BEAKER) 2.45 M/ L 4.63-6.08 L (test code = 761) HEMOGLOBIN (BEAKER) (test code = 7.7 GM/DL 13.7-17.5 L 410) HEMATOCRIT (BEAKER) (test code = 24.6 % 40.1-51.0 L 411) MEAN CORPUSCULAR VOLUME (BEAKER) 100.4 fL 79.0-92.2 H (test code = 753) MEAN CORPUSCULAR HEMOGLOBIN 31.4 pg 25.7-32.2 (BEAKER) (test code = 751) MEAN CORPUSCULAR HEMOGLOBIN CONC 31.3 GM/DL 32.3-36.5 L (BEAKER) (test code = 752) RED CELL DISTRIBUTION WIDTH 12.3 % 11.6-14.4 (BEAKER) (test code = 412) PLATELET COUNT (BEAKER) (test 147 K/CU MM 150-450 L code = 756) MEAN PLATELET VOLUME (BEAKER) 10.4 fL 9.4-12.4 (test code = 754) NUCLEATED RED BLOOD CELLS 0 /100 WBC 0-0 (BEAKER) (test code = 413) PLATELET [id number] 11:32:55 Test Item Value Reference Range Interpretation Comments PLATELET COUNT (BEAKER) (test 147 K/CU MM 150-450 L code = 756) SODIUM NA-STAT [id number] 11:22:45 Test Item Value Reference Range Interpretation Comments SODIUM (BEAKER) (test code = 381) 133 meq/L 136-145 L GLUCOSE-STAT [id number] 11:22:40 Test Item Value Reference Range Interpretation Comments GLUCOSE RANDOM (BEAKER) (test code 212 mg/dL 70-110 H = 652) HGB/HCT (H&H) - STAT [id number] 11:22:40 Test Item Value Reference Range Interpretation Comments HEMOGLOBIN (BEAKER) (test code = 8.9 GM/DL 13.0-16.8 L 410) HEMATOCRIT (BEAKER) (test code = 26.0 % 40.0-50.0 L 411) BLOOD GAS, [id number] 11:22:39 Test Item Value Reference Range Interpretation Comments PH ARTERIAL (BEAKER) (test code = 7.34 7.35-7.45 L 383) PCO2 ARTERIAL (BEAKER) (test code 42 mm Hg 35-45 = 384) PO2 ARTERIAL (BEAKER) (test code 301 mm Hg 80-90 H = 385) O2 SATURATION ARTERIAL (BEAKER) 99.7 % 96.0-97.0 H (test code = 386) HCO3 ARTERIAL (BEAKER) (test code 23 mmol/L 21-29 = 388) BASE EXCESS ARTERIAL (BEAKER) -3.7 mmol/L -2.0-3.0 L (test code = 387) PATIENT TEMPERATURE (BEAKER) 33.6 (test code = 1818) FIO2 (BEAKER) (test code = 1819) 80.0 POTASSIUM-STAT [id number] 11:21:52 Test Item Value Reference Range Interpretation Comments POTASSIUM (BEAKER) (test code = 5.0 meq/L 3.6-5.5 379) BLOOD GAS, [id number] 10:45:43 Test Item Value Reference Range Interpretation Comments PH ARTERIAL (BEAKER) (test code = 7.39 7.35-7.45 383) PCO2 ARTERIAL (BEAKER) (test code 38 mm Hg 35-45 = 384) PO2 ARTERIAL (BEAKER) (test code 298 mm Hg 80-90 H = 385) O2 SATURATION ARTERIAL (BEAKER) 99.7 % 96.0-97.0 H (test code = 386) HCO3 ARTERIAL (BEAKER) (test code 24 mmol/L 21-29 = 388) BASE EXCESS ARTERIAL (BEAKER) -2.9 mmol/L -2.0-3.0 L (test code = 387) PATIENT TEMPERATURE (BEAKER) 30.1 (test code = 1818) FIO2 (BEAKER) (test code = 1819) 80.0 GLUCOSE-STAT [id number] 10:45:06 Test Item Value Reference Range Interpretation Comments GLUCOSE RANDOM (BEAKER) (test code 193 mg/dL 70-110 H = 652) HGB/HCT (H&H) - STAT [id number] 10:45:06 Test Item Value Reference Range Interpretation Comments HEMOGLOBIN (BEAKER) (test code = 8.5 GM/DL 13.0-16.8 L 410) HEMATOCRIT (BEAKER) (test code = 25.0 % 40.0-50.0 L 411) SODIUM NA-STAT [id number] 10:45:05 Test Item Value Reference Range Interpretation Comments SODIUM (BEAKER) (test code = 381) 133 meq/L 136-145 L POTASSIUM-STAT [id number] 10:41:53 Test Item Value Reference Range Interpretation Comments POTASSIUM (BEAKER) (test code = 4.6 meq/L 3.6-5.5 379) BLOOD GAS, [id number] 10:17:21 Test Item Value Reference Range Interpretation Comments PH ARTERIAL (BEAKER) (test code = 7.43 7.35-7.45 383) PCO2 ARTERIAL (BEAKER) (test code 32 mm Hg 35-45 L = 384) PO2 ARTERIAL (BEAKER) (test code 306 mm Hg 80-90 H = 385) O2 SATURATION ARTERIAL (BEAKER) 99.7 % 96.0-97.0 H (test code = 386) HCO3 ARTERIAL (BEAKER) (test code 22 mmol/L 21-29 = 388) BASE EXCESS ARTERIAL (BEAKER) -3.2 mmol/L -2.0-3.0 L (test code = 387) PATIENT TEMPERATURE (BEAKER) 31.1 (test code = 1818) FIO2 (BEAKER) (test code = 1819) 80.0 GLUCOSE-STAT [id number] 10:16:33 Test Item Value Reference Range Interpretation Comments GLUCOSE RANDOM (BEAKER) (test code 182 mg/dL 70-110 H = 652) HGB/HCT (H&H) - STAT [id number] 10:16:33 Test Item Value Reference Range Interpretation Comments HEMOGLOBIN (BEAKER) (test code = 7.7 GM/DL 13.0-16.8 L 410) HEMATOCRIT (BEAKER) (test code = 23.0 % 40.0-50.0 L 411) SODIUM NA-STAT [id number] 10:16:32 Test Item Value Reference Range Interpretation Comments SODIUM (BEAKER) (test code = 381) 130 meq/L 136-145 L POTASSIUM-STAT [id number] 10:15:09 Test Item Value Reference Range Interpretation Comments POTASSIUM (BEAKER) (test code = 4.2 meq/L 3.6-5.5 379) HGB/HCT (H&H) - STAT [id number] 08:35:28 Test Item Value Reference Range Interpretation Comments HEMOGLOBIN (BEAKER) (test code = 12.3 GM/DL 13.0-16.8 L 410) HEMATOCRIT (BEAKER) (test code = 36.0 % 40.0-50.0 L 411) BLOOD GAS, [id number] 08:35:27 Test Item Value Reference Range Interpretation Comments PH ARTERIAL (BEAKER) (test code = 7.37 7.35-7.45 383) PCO2 ARTERIAL (BEAKER) (test code 41 mm Hg 35-45 = 384) PO2 ARTERIAL (BEAKER) (test code 116 mm Hg 80-90 H = 385) O2 SATURATION ARTERIAL (BEAKER) 98.1 % 96.0-97.0 H (test code = 386) HCO3 ARTERIAL (BEAKER) (test code 23 mmol/L 21-29 = 388) BASE EXCESS ARTERIAL (BEAKER) -1.7 mmol/L -2.0-3.0 (test code = 387) PATIENT TEMPERATURE (BEAKER) 37.0 (test code = 1818) FIO2 (BEAKER) (test code = 1819) 50.0 GLUCOSE-STAT [id number] 08:35:27 Test Item Value Reference Range Interpretation Comments GLUCOSE RANDOM (BEAKER) (test code 112 mg/dL 70-110 H = 652) CALCIUM, [id number] 08:35:18 Test Item Value Reference Range Interpretation Comments CALCIUM IONIZED (BEAKER) (test 1.14 mmol/L 1.12-1.27 code = 698) PH, BLOOD (BEAKER) (test code = 7.37 1810) SODIUM NA-STAT [id number] 08:35:13 Test Item Value Reference Range Interpretation Comments SODIUM (BEAKER) (test code = 381) 137 meq/L 136-145 POTASSIUM-STAT [id number] 08:35:13 Test Item Value Reference Range Interpretation Comments POTASSIUM (BEAKER) (test code = 3.7 meq/L 3.6-5.5 379) POCT-GLUCOSE [id number] 06:01:22 Test Item Value Reference Range Interpretation Comments POC-GLUCOSE METER 104 mg/dL 70-110 : [facility] (BEAKER) (test code = [facility] [employer] [facility], 1538) [id number]: [address] Judge/Techni noel ID = [id number] for ANGELO DOMINGUEZ SARS-COV2/RT-PCR ([facility])2021-04-05 02:05:14 Test Item Value Reference Range Interpretation Comments SARS-COV2/RT-PCR (test code = Negative Negative [id number]) Negative result for this test determines that SARS-CoV-2 RNA was not present in the specimen above the Limit of Detection (LOD). However, Negative results do not preclude SARS-CoV-2 infection and should not be used as the sole basis for treatment or patient management decisions. Negative results must be combined with clinical observations, patient history, and epidemiological information. A false negative result may occur if a specimen is improperly collected, transported, or handled. A false negative result should be considered if patient's recent exposures or clinical presentation indicate that COVID-19 (SARS-CoV-2) is likely and diagnostic tests for other causes of illness are negative. Re-testing should be considered in cases of suspected false negatives.The limit of detection for this assay is 100 copies/mL.This SARS-CoV-2 test is a real-time RT_PCR test intended for the qualitative detection of nucleic acid from SARS-CoV-2 in a nasopharyngeal swab specimen collected from individuals suspected of COVID-19 by their healthcare provider.This test has not been Food and Drug Administration (FDA) cleared or approved. This is a modified version of an approved Emergency Use Authorization (EUA) and is in the process of review by the FDA. Once authorized by the FDA, the issued EUA will be effective until the declaration that circumstances exist justifying the authorization of the emergency use of in vitro diagnostic tests for detection and/or diagnosis of COVID-19 is terminated under Section 564(b)(2) of the Act or the EUA is revoked under Section 564(g) of the Act.Testing was performed using Gentis SARS-CoV-2 assay.Fact Sheet for Healthcare Providers:https://www.Factor.io.Traffline/evonne/RT SARS-CoV-2 HCP Fact Sheet 51- 021261.pdfFact Sheet for Healthcare Patients:https://www.Factor.io.alvares/evonne/RT SARS-CoV-2 Patient Fact Sheet EN 51-426853L7.pdfType and screen, automated 2021-04-04 15:37:00 Test Item Value Reference Range Interpretation Comments ABO/RH AUTOMATED (BEAKER) (test O NEGATIVE code = 2260) Ab Scrn (test code = 890-4) NEGATIVE [facility] arm/[id number] 15:12:24Ejection FractionSLEH ECHO HEARTLAB MKCKESSON [facility] CenterAr[facility] pressures arms [id number] 15:12:03Ejection FractionSLEH ECHO HEARTLAB MKCKESSON [facility] CenterArterial doppler arms bilateral 2021-04-02 15:11:47Ejection FractionSLEH ECHO HEARTLAB MKCKESSON [facility] CenterFerritin2021-12-08 06:01:53 Test Item Value Reference Range Interpretation Comments Ferritin (test code = 52.10 ng/mL 5.00-275.00 2276-4) BRITTANY (test code = BRITTANY) County Court Judge ID - DEVEN M Lab Interpretation (test Normal code = 12355-2) [facility] CenterFERRITIN2021-[facility]-08 06:01:53 Test Item Value Reference Range Interpretation Comments FERRITIN (BEAKER) (test code = 52.10 ng/mL 5.00-275.00 361) County Court Judge CUCO ISAACSASIC METABOLIC [id number] 05:45:26 Test Item Value Reference Range Interpretation Comments SODIUM (BEAKER) 133 meq/L 136-145 L (test code = 381) POTASSIUM (BEAKER) 4.1 meq/L 3.5-5.1 (test code = 379) CHLORIDE (BEAKER) 106 meq/L 98-107 (test code = 382) CO2 (BEAKER) (test 22 meq/L 22-29 code = 355) BLOOD UREA NITROGEN 9 mg/dL 7-21 (BEAKER) (test code = 354) CREATININE (BEAKER) 0.83 mg/dL 0.57-1.25 (test code = 358) GLUCOSE RANDOM 110 mg/dL 70-105 H (BEAKER) (test code = 652) CALCIUM (BEAKER) 8.5 mg/dL 8.4-10.2 (test code = 697) EGFR (BEAKER) (test 93 mL/min/1.73 ESTIMA KATHY GFR IS code = 1092) sq m NOT ACCURATE CREATININE CLEARANCE IN PREDICTING GLOMERULAR FILTRATION RATE . ESTIMATED GFR I S NOT APPLICABLE FOR DIALYSIS PATIEN TS. County Court Judge CUCO Ricardo, TIBC, % sat. (without ferritin)2021-04-02 05:41:09 Test Item Value Reference Range Interpretation Comments Iron (test code = 2498-4) 39.0 ug/dL 40.0-160.0 L TIBC (test code = 2500-7) 319 ug/dL 250-450 Iron % Saturation (test 12 % 20-55 L code = 2502-3) BRITTANY (test code = BRITTANY) County Court Judge ID Leighann CARVALHO Johana Lab Interpretation (test Abnormal code = 92428-8) [facility] CenterIRON, TIBC, % SAT. (WITHOUT FERRITIN)2021-04-02 05:41:09 Test Item Value Reference Range Interpretation Comments IRON (BEAKER) (test code = 547) 39.0 ug/dL 40.0-160.0 L TOTAL IRON BINDING CAPACITY 319 ug/dL 250-450 (BEAKER) (test code = 769) IRON % SATURATION (2) (BEAKER) 12 % 20-55 L (test code = 2590) County Court Judge ID - DEVEN [id number] 05:24:36 Test Item Value Reference Range Interpretation Comments PARTIAL THROMBOPLASTIN TIME 30.9 seconds 22.5-36.0 (BEAKER) (test code = 760) CBC (HEMOGRAM ONLY)2021-04-02 05:13:44 Test Item Value Reference Range Interpretation Comments WHITE BLOOD CELL COUNT (BEAKER) 4.2 K/ L 3.5-10.5 (test code = 775) RED BLOOD CELL COUNT (BEAKER) 3.63 M/ L 4.63-6.08 L (test code = 761) HEMOGLOBIN (BEAKER) (test code = 11.5 GM/DL 13.7-17.5 L 410) HEMATOCRIT (BEAKER) (test code = 36.2 % 40.1-51.0 L 411) MEAN CORPUSCULAR VOLUME (BEAKER) 99.7 fL 79.0-92.2 H (test code = 753) MEAN CORPUSCULAR HEMOGLOBIN 31.7 pg 25.7-32.2 (BEAKER) (test code = 751) MEAN CORPUSCULAR HEMOGLOBIN CONC 31.8 GM/DL 32.3-36.5 L (BEAKER) (test code = 752) RED CELL DISTRIBUTION WIDTH 12.2 % 11.6-14.4 (BEAKER) (test code = 412) PLATELET COUNT (BEAKER) (test 173 K/CU MM 150-450 code = 756) MEAN PLATELET VOLUME (BEAKER) 9.9 fL 9.4-12.4 (test code = 754) NUCLEATED RED BLOOD CELLS 0 /100 WBC 0-0 (BEAKER) (test code = 413) CT, CHEST, WITH [id number] 03:17:00Unlisted Reason for Exam - Click Yes and Enter Reason Below->No [facility] CENTERName: TOY VAIL : 1955 Sex: MFINAL REPORT CLINICAL INDICATION: Pulmonary nodule identified on plain radiographyCOMPARISON: None Multiple axial images of the chest were performed after the uncomplicated administration of IV contrast. This exam was performed according to our departmental dose-optimization program, which includes automated exposure control, adjustment of the mA and/or kV according to patient sizeand/or use of the iterative reconstruction technique. FINDINGS: Lung parenchyma: Calcified granulomas in the right upper lobe. No suspicious pulmonary nodule. Moderate to severe emphysematous changes with an upper lung predominance. Bilateral dependent atelectasis. No consolidation or worrisome groundglass opacification. Pleural effusion: None. Pneumothorax: None. Tracheobronchial tree: No significant findings. Pulmonary vasculature: No significant findings. Cardiac contours and great vessels: Atherosclerotic calcifications of the coronary arteries and aortic arch. Mediastinum: No significant findings. Lymph Nodes: No adenopathy in the mediastinum or daniela. Skeleton: No acute abnormality. Limited images of upper abdomen: No significant findings. IMPRESSION: Calcified granulomas in the right upper lobe which correlate with findings on chest x-ray. No suspicious nodule. Severe pulmonary emphysema. Signed: Kit Sims MDReport Verified Date/Time: 04/02/2021 03:17:28 -[id number] 18:03:01 Test Item Value Reference Range Interpretation Comments ACTIVATED CLOTTING TIME 315 sec : 74 -137 seconds, (BEAKER) (test code = Baseli ne: TESTED AT 441) [facility] [address] [facility], [facility] 30: County Court Judge/Techni noel ID = [id number] for SIMA GALEAS 2D Echo W/Doppler(CW/PW/Color)2021-04-01 17:04:59Ejection [facility] ECHO HEARTLAB MKCKESSON [facility] CenterAPTT2021-12-07 12:38:41 Test Item Value Reference Range Interpretation Comments PARTIAL THROMBOPLASTIN TIME 56.3 seconds 22.5-36.0 H (ERIN) (test code = 760) Hemoglobin [id number] 08:46:41 Test Item Value Reference Range Interpretation Comments Hemoglobin A1C (test code = 4548-4) 5.2 % 4.3-6.1 Lab Interpretation (test code = Normal 71982-9) [facility] CenterHEMOGLOBIN [id number] 08:46:41 Test Item Value Reference Range Interpretation Comments HEMOGLOBIN A1C (ERIN) (test code = 5.2 % 4.3-6.1 368) Vein Mapping Legs [id number] 07:30:50Ejection FractionSLEH ECHO HEARTLAB MKCKESSON [facility]ARS[facility]OV[facility] ([facility])2021-04-01 06:39:34 Test Item Value Reference Range Interpretation Comments SARS-COV2/RT-PCR (test code = Negative Negative [id number]) Negative result for this test determines that SARS-CoV-2 RNA was not present in the specimen above the Limit of Detection (LOD). However, Negative results do not preclude SARS-CoV-2 infection and should not be used as the sole basis for treatment or patient management decisions. Negative results must be combined with clinical observations, patient history, and epidemiological information. A false negative result may occur if a specimen is improperly collected, transported, or handled. A false negative result should be considered if patient's recent exposures or clinical presentation indicate that COVID-19 (SARS-CoV-2) is likely and diagnostic tests for other causes of illness are negative. Re-testing should be considered in cases of suspected false negatives.The limit of detection for this assay is 100 copies/mL.This SARS-CoV-2 test is a real-time RT_PCR test intended for the qualitative detection of nucleic acid from SARS-CoV-2 in a nasopharyngeal swab specimen collected from individuals suspected of COVID-19 by their healthcare provider.This test has not been Food and Drug Administration (FDA) cleared or approved. This is a modified version of an approved Emergency Use Authorization (EUA) and is in the process of review by the FDA. Once authorized by the FDA, the issued EUA will be effective until the declaration that circumstances exist justifying the authorization of the emergency use of in vitro diagnostic tests for detection and/or diagnosis of COVID-19 is terminated under Section 564(b)(2) of the Act or the EUA is revoked under Section 564(g) of the Act.Testing was performed using Gentis SARS-CoV-2 assay.Fact Sheet for Healthcare Providers:https://www.Factor.io.alvares/evonne/RT SARS-CoV-2 HCP Fact Sheet 51- 079520.pdfFact Sheet for Healthcare Patients:https://www.Factor.io.Traffline/evonne/RT SARS-CoV-2 Patient Fact Sheet EN 51-843556Y7.pdfHigh Sensitivity Troponin I ([facility]/Jailyn Only)2021-04-01 05:59:52 Test Item Value Reference Range Interpretation Comments Troponin I HS (test 165 pg/ml See_Comment H [Automa kathy code = 88638-1) message] The system which generated this result transmitted reference range : <=35. The reference range was not used to interpret this result as normal/abnormal . BRITTANY (test code = County Court Judge ID - DEVEN BRITTANY) MThe DESILVERIZER STAT High Sensitivity Troponin-I results should be used in conjunction with other diagnostic information such as ECG, clinical observations and information, and patient symptoms to aid in the diagnosis of [place]. Lab Interpretation Abnormal (test code = 59212-8) [facility] CenterHIGH SENSITIVITY TROPONIN [id number] 05:59:52 Test Item Value Reference Range Interpretation Comments HIGH SENSITIVITY 165 pg/ml See_Comment H [Automated message] TROPONIN I (test code The sy stem which = [id number]) generated this result transmitted ref erence range: <=35. Th e reference range was not used to int erpret this result as normal/abnormal . County Court Judge ID - DEVEN MThe DESILVERIZER STAT High Sensitivity Troponin-I results should be used in conjunction with other diagnostic information such as ECG, clinical observations and information, and patient symptoms to aid in the diagnosis of [place].[id number] 05:58:07 Test Item Value Reference Range Interpretation Comments PARTIAL THROMBOPLASTIN TIME 38.9 seconds 22.5-36.0 H (BEAKER) (test code = 760) CBC (HEMOGRAM ONLY)2021-04-01 05:55:31 Test Item Value Reference Range Interpretation Comments WHITE BLOOD CELL COUNT 3.9 K/ L 3.5-10.5 (BEAKER) (test code = 775) RED BLOOD CELL COUNT 3.43 M/ L 4.63-6.08 L (BEAKER) (test code = 761) HEMOGLOBIN (BEAKER) 10.8 GM/DL 13.7-17.5 L (test code = 410) HEMATOCRIT (BEAKER) 33.9 % 40.1-51.0 L (test code = 411) MEAN CORPUSCULAR 98.8 fL 79.0-92.2 H Discordant MCV VOLUME (BEAKER) (test result s compared to code = 753) previous result s; clinical correl ation required. MEAN CORPUSCULAR 31.5 pg 25.7-32.2 HEMOGLOBIN (BEAKER) (test code = 751) MEAN CORPUSCULAR 31.9 GM/DL 32.3-36.5 L HEMOGLOBIN CONC (BEAKER) (test code = 752) RED CELL DISTRIBUTION 12.2 % 11.6-14.4 WIDTH (BEAKER) (test code = 412) PLATELET COUNT 150 K/CU MM 150-450 (BEAKER) (test code = 756) MEAN PLATELET VOLUME 9.5 fL 9.4-12.4 (BEAKER) (test code = 754) NUCLEATED RED BLOOD 0 /100 WBC 0-0 CELLS (BEAKER) (test code = 413) BASIC METABOLIC [id number] 05:51:27 Test Item Value Reference Range Interpretation Comments SODIUM (BEAKER) 139 meq/L 136-145 (test code = 381) POTASSIUM (BEAKER) 4.0 meq/L 3.5-5.1 (test code = 379) CHLORIDE (BEAKER) 110 meq/L 98-107 H (test code = 382) CO2 (BEAKER) (test 21 meq/L 22-29 L code = 355) BLOOD UREA NITROGEN 12 mg/dL 7-21 (BEAKER) (test code = 354) CREATININE (BEAKER) 0.79 mg/dL 0.57-1.25 (test code = 358) GLUCOSE RANDOM 104 mg/dL 70-105 (BEAKER) (test code = 652) CALCIUM (BEAKER) 8.4 mg/dL 8.4-10.2 (test code = 697) EGFR (BEAKER) (test 98 mL/min/1.73 ESTIMA KATHY GFR IS code = 1092) sq m NOT ACCURATE CREATININE CLEARANCE IN PREDICTING GLOMERULAR FILTRATION RATE . ESTIMATED GFR I S NOT APPLICABLE FOR DIALYSIS PATIEN TS. County Court Judge ID - DEVEN MASTERS, [id number] 01:55:00 Test Item Value Reference Range Interpretation Comments ABO Grouping (test code = 2588) O Rh Factor (test code = 2589) NEG [facility] CenterAPTT2021-[facility] 00:08:28 Test Item Value Reference Range Interpretation Comments PARTIAL THROMBOPLASTIN TIME 40.2 seconds 22.5-36.0 H (BEAKER) (test code = 760) Carotid doppler [id number] 21:29:20Ejection FractionSLEH ECHO HEARTLAB MKCKESSON CPACSBrotman Medical CenterLipid [id number] 18:35:34 Test Item Value Reference Range Interpretation Comments Triglycerides (test 129 mg/dL Specimen code = 2571-8) slightly hemolyzed Cholesterol (test 129 mg/dL Specimen code = 2093-3) slightly hemolyzed HDL (test code = 41 mg/dL 2084-9) LDL Calculated (test 62 mg/dL code = 07880-2) BRITTANY (test code = Triglyceride BRITTANY) Reference Range: Low Risk <150 Borderline 150-199 High Risk 200-499 Very High Risk >=500 Cholesterol Reference Range: Low Risk <200 Borderline 200-239 High Risk >240 HDL Cholesterol Reference Range: Low Risk >=60 High Risk <40 LDL Cholesterol Reference Range: Optimal <100 Near Optimal 100-129 Borderline 130-159 High 160-189 Very High >=[address] ID - DB [facility] CenterLIPID [id number] 18:35:34 Test Item Value Reference Range Interpretation Comments TRIGLYCERIDES (BEAKER) 129 mg/dL Speci men slightly (test code = 540) hemolyzed CHOLESTEROL (BEAKER) 129 mg/dL Specime n slightly (test code = 631) hemolyzed HDL CHOLESTEROL (BEAKER) 41 mg/dL (test code = 976) LDL CHOLESTEROL 62 mg/dL CALCULATED (BEAKER) (test code = 633) Triglyceride Reference Range: Low Risk <150 Borderline 150-199 High Risk 200- 499 Very High Risk >=500Cholesterol Reference Range: Low Risk <200 Borderline 200-239 High Risk >240HDL Cholesterol Reference Range: Low Risk >=60 High Risk <40LDL Cholesterol Reference Range: Optimal <100 Near Optimal 100-129 Borderline 130-159 High 160-189 Very High >=[address] ID - DBCOMPREHENSIVE METABOLIC [id number] 18:35:33 Test Item Value Reference Range Interpretation Comments TOTAL PROTEIN 8.0 gm/dL 6.0-8.3 Specimen sligh tly (BEAKER) (test code = hemoly zed 770) ALBUMIN (BEAKER) 3.7 g/dL 3.5-5.0 Specimen sl ightly (test code = 1145) hemolyzed ALKALINE PHOSPHATASE 78 U/L 40-150 (BEAKER) (test code = 346) BILIRUBIN TOTAL 0.6 mg/dL 0.2-1.2 Specimen sli ghtly (BEAKER) (test code = hemoly zed 377) SODIUM (BEAKER) (test 139 meq/L 136-145 code = 381) POTASSIUM (BEAKER) 4.0 meq/L 3.5-5.1 Specimen slightly (test code = 379) hemolyzed CHLORIDE (BEAKER) 108 meq/L 98-107 H (test code = 382) CO2 (BEAKER) (test 21 meq/L 22-29 L code = 355) BLOOD UREA NITROGEN 12 mg/dL 7-21 (BEAKER) (test code = 354) CREATININE (BEAKER) 0.83 mg/dL 0.57-1.25 Specimen slightly (test code = 358) hemolyzed GLUCOSE RANDOM 120 mg/dL 70-105 H (BEAKER) (test code = 652) CALCIUM (BEAKER) 9.0 mg/dL 8.4-10.2 (test code = 697) AST (SGOT) (BEAKER) 70 U/L 5-34 H Specimen slightly (test code = 353) hemolyzed ALT (SGPT) (BEAKER) 36 U/L 6-55 Specimen slightly (test code = 347) hemolyzed EGFR (BEAKER) (test 93 mL/min/1.73 ESTIMA KATHY GFR IS code = 1092) sq m NOT ACCURATE CREATININE CLEARANCE IN PREDICTING GLOMERULAR FILTRATION RATE . ESTIMATED GFR I S NOT APPLICABLE FOR DIALYSIS PATIEN TS. County Court Judge ID - DBPROTHROMBIN TIME/[id number] 18:24:07 Test Item Value Reference Range Interpretation Comments PROTIME (ERIN) 12.7 seconds 11.9-14.2 (test code = 759) INR (ERIN) (test 0.97 See_Comment [Automat ed message] code = 370) The system [employer] generated this result transmitted ref erence range: <=5.90. The reference range was not used to int erpret this result as normal/abnormal . RECOMMENDED COUMADIN/WARFARIN INR THERAPY RANGESSTANDARD DOSE: 2.0 - 3.0 Includes: PROPHYLAXIS for venous thrombosis, systemic embolization; TREATMENT for venous thrombosis and/or pulmonary embolus.HIGH RISK: Target INR is 2.5-3.5 for patients with mechanical heart valves.RAD, CHEST, 1 VIEW, NON [id number] 17:58:00Reason for exam:->preop acbShould this be performed at the bedside?->Yes[facility] : 1955 Sex: MFINAL REPORT TECHNIQUE: Frontal view of the chest. INDICATION: preop acb. COMPARISON: None. FINDINGS: LINES/TUBES: None. LUNGS: There is likely a calcified granuloma of the right upper lung which measures 0.6 cm. There are some linear opacities at the left base which are most likely due to atelectasis. PLEURA: No pneumothorax or significant pleural effusion. HEART AND MEDIASTINUM: The cardiac silhouette is normal in size. SOFT TISSUES AND BONES: Unremarkable. IMPRESSION: There is likely a calcified granuloma of the right upper lung which measures 0.6 cm. Consider a follow-up radiograph in six months for confirmation and to exclude a neoplasm. There are linear opacities in the left base which are most likely due to atelectasis. Signed: Tim Claros MDReport Verified Date/Time: 03/31/2021 17:58:37 B-TYPE NATRIURETIC FACTOR (BNP)2021-03-31 17:00:09 Test Item Value Reference Range Interpretation Comments B-TYPE NATRIURETIC PEPTIDE (BEAKER) 240 pg/mL 0-100 H (test code = 700) County Court Judge ID - DBHepatic function [id number] 16:53:32 Test Item Value Reference Range Interpretation Comments Protein, Total (test 8.0 See_Comment [Autom ated code = 2885-2) message] The system which generated this result transmit kathy reference range : 6.0 - 8.3 gm/dL . The reference range was not u sed to interpret th is result as normal/abnormal . Albumin (test code = 3.7 g/dL 3.5-5.0 30750-3) Total Bilirubin (test 1.5 mg/dL 0.2-1.2 H code = 1974-2) Bilirubin, Direct 0.3 mg/dL 0.1-0.5 (test code = 1968-7) Alkaline Phosphatase 78 U/L 40-150 (test code = 6768-6) AST (test code = 60 U/L 5-34 H 1920-8) ALT (test code = 32 U/L 6-55 1742-6) BRITTANY (test code = BRITTANY) County Court Judge ID - DB Lab Interpretation Abnormal (test code = 85875-6) [facility] CenterPHOSPHORUS2021 16:53:32 Test Item Value Reference Range Interpretation Comments PHOSPHORUS (BEAKER) (test code = 3.6 mg/dL 2.3-4.7 604) County Court Judge ID - DBHEPATIC FUNCTION [id number] 16:53:32 Test Item Value Reference Range Interpretation Comments TOTAL PROTEIN (BEAKER) (test code = 8.0 gm/dL 6.0-8.3 770) ALBUMIN (BEAKER) (test code = 1145) 3.7 g/dL 3.5-5.0 BILIRUBIN TOTAL (BEAKER) (test code 1.5 mg/dL 0.2-1.2 H = 377) BILIRUBIN DIRECT (BEAKER) (test 0.3 mg/dL 0.1-0.5 code = 706) ALKALINE PHOSPHATASE (BEAKER) (test 78 U/L 40-150 code = 346) AST (SGOT) (BEAKER) (test code = 60 U/L 5-34 H 353) ALT (SGPT) (BEAKER) (test code = 32 U/L 6-55 347) County Court Judge ID - DBBASIC METABOLIC [id number] 16:53:31 Test Item Value Reference Range Interpretation Comments SODIUM (BEAKER) 137 meq/L 136-145 (test code = 381) POTASSIUM (BEAKER) 3.8 meq/L 3.5-5.1 (test code = 379) CHLORIDE (BEAKER) 107 meq/L 98-107 (test code = 382) CO2 (BEAKER) (test 20 meq/L 22-29 L code = 355) BLOOD UREA NITROGEN 12 mg/dL 7-21 (BEAKER) (test code = 354) CREATININE (BEAKER) 0.89 mg/dL 0.57-1.25 (test code = 358) GLUCOSE RANDOM 126 mg/dL 70-105 H (BEAKER) (test code = 652) CALCIUM (BEAKER) 9.0 mg/dL 8.4-10.2 (test code = 697) EGFR (BEAKER) (test 86 mL/min/1.73 ESTIMA KATHY GFR IS code = 1092) sq m NOT ACCURATE CREATININE CLEARANCE IN PREDICTING GLOMERULAR FILTRATION RATE . ESTIMATED GFR I S NOT APPLICABLE FOR DIALYSIS PATIEN TS. County Court Judge ID - [id number] 16:53:31 Test Item Value Reference Range Interpretation Comments MAGNESIUM (BEAKER) (test code = 2.0 mg/dL 1.6-2.6 627) County Court Judge ID - [id number] 16:48:10 Test Item Value Reference Range Interpretation Comments PARTIAL THROMBOPLASTIN TIME 30.1 seconds 22.5-36.0 (BEAKER) (test code = 760) CBC W/PLT COUNT & AUTO [id number] 16:33:45 Test Item Value Reference Range Interpretation Comments WHITE BLOOD CELL COUNT (BEAKER) 5.1 K/ L 3.5-10.5 (test code = 775) RED BLOOD CELL COUNT (BEAKER) 3.95 M/ L 4.63-6.08 L (test code = 761) HEMOGLOBIN (BEAKER) (test code = 12.6 GM/DL 13.7-17.5 L 410) HEMATOCRIT (BEAKER) (test code = 36.8 % 40.1-51.0 L 411) MEAN CORPUSCULAR VOLUME (BEAKER) 93.2 fL 79.0-92.2 H (test code = 753) MEAN CORPUSCULAR HEMOGLOBIN 31.9 pg 25.7-32.2 (BEAKER) (test code = 751) MEAN CORPUSCULAR HEMOGLOBIN CONC 34.2 GM/DL 32.3-36.5 (BEAKER) (test code = 752) RED CELL DISTRIBUTION WIDTH 12.2 % 11.6-14.4 (BEAKER) (test code = 412) PLATELET COUNT (BEAKER) (test 205 K/CU MM 150-450 code = 756) MEAN PLATELET VOLUME (BEAKER) 9.5 fL 9.4-12.4 (test code = 754) NUCLEATED RED BLOOD CELLS 0 /100 WBC 0-0 (BEAKER) (test code = 413) NEUTROPHILS RELATIVE PERCENT 61 % (BEAKER) (test code = 429) LYMPHOCYTES RELATIVE PERCENT 27 % (BEAKER) (test code = 430) MONOCYTES RELATIVE PERCENT 7 % (BEAKER) (test code = 431) EOSINOPHILS RELATIVE PERCENT 4 % (BEAKER) (test code = 432) BASOPHILS RELATIVE PERCENT 2 % (BEAKER) (test code = 437) NEUTROPHILS ABSOLUTE COUNT 3.08 K/ L 1.78-5.38 (BEAKER) (test code = 670) LYMPHOCYTES ABSOLUTE COUNT 1.37 K/ L 1.32-3.57 (BEAKER) (test code = 414) MONOCYTES ABSOLUTE COUNT (BEAKER) 0.33 K/ L 0.30-0.82 (test code = 415) EOSINOPHILS ABSOLUTE COUNT 0.21 K/ L 0.04-0.54 (BEAKER) (test code = 416) BASOPHILS ABSOLUTE COUNT (BEAKER) 0.08 K/ L 0.01-0.08 (test code = 417) IMMATURE GRANULOCYTES-RELATIVE 0 % 0-1 PERCENT (BEAKER) (test code = 2801)
--- NOTE | 2021-12-26 22:32 | RAD REPORT ---
EXAM DESCRIPTION: US - Abdomen Exam Limited - 12/26/2021 10:20 pm CLINICAL HISTORY: ABD PAIN COMPARISON: Abdomen Exam Complete dated 01/04/2020 FINDINGS: No circumscribed fluid collections are identified in the area of interest.
[2021-12-26] MEDS ORDERED: DIPHENHYDRAMINE 50 MG/ML VIAL ONE (22:50)
[2021-12-26] MEDS ORDERED: CEFAZOLIN SODIUM 1 GM/VIAL ONE (22:50)
[2021-12-26] MEDS ORDERED: NA CHLORIDE 0.9% 1,000 ML ONE (22:51)
[2021-12-26] MEDS ORDERED: CEPHALEXIN 250 MG CAP ONE (22:51)
[2021-12-26] MEDS ORDERED: NA CHLORIDE 0.9% 100 ML ONE (22:51)
[2021-12-26] MEDS ORDERED: NA CHLORIDE 0.9% 500 ML ONE (22:51)
[2021-12-26] MEDS ORDERED: FAMOTIDINE 20 MG/2 ML VIAL IV ONE (22:51)
[2021-12-26] MEDS ORDERED: DOXYCYCLINE 100 MG CAP PO ONE (22:51)
[2021-12-26 22:58] LABS: Absolute Lymphocytes (CBC) 1.3 K/uL (0.7-4.9); Hematocrit 41.5 % (39.6-49.0); Lymphocytes % 22.4 % (15.3-44.8); MCV 101.9 fL (80-100); MPV 7.7 fL (7.6-11.3); RBC Red Blood Cell Count 4.07 M/uL (4.33-5.43)
[2021-12-26 23:25] LABS: Albumin 3.4 g/dL (3.4-5.0); Bilirubin Total 0.5 mg/dL (0.2-1.0); Protein, Total 8.4 g/dL (6.4-8.2)
[2021-12-26 23:28] LABS: Potassium 2.9 mmol/L (3.5-5.1)
--- NOTE | 2021-12-26 23:33 | EDPHYS ---
Physician Documentation [facility] Name: Toy Barrios Age: 66 yrs Sex: Male : 1955 Arrival Date: 12/26/2021 Time: 19:49 Bed 6 Private MD: PATRIA Physician Jeet Tee HPI: 12/26 21:51 This 66 yrs old Male presents to ER via Ambulatory with complaints of Rash. roseline 21:51 The patient's rash thought to be caused by Dermatitis Contact allergy. The rash is roseline located on the right lower quadrant and left lower quadrant. The rash can be described as confluent, erythematous, isolated, patchy. Onset: The symptoms/episode began/occurred 5 day(s) ago. Associated signs and symptoms: Pertinent positives: burning sensation, Pain. Associated signs and symptoms: Pertinent positives:. Associated signs and symptoms: Pertinent positives:. Severity of symptoms: At their worst the symptoms were mild moderate in the emergency department the symptoms are worse markedly. The patient has not experienced similar symptoms in the past. Historical: - Allergies: 19:55 topical eczema cream; as6 - Home Meds: 19:58 clopidogrel 75 mg oral tab 1 tab once daily [Active]; metoprolol tartrate 25 mg Oral as6 tab 1 tab once daily [Active]; atorvastatin 80 mg oral tab 1 tab once daily [Active]; gabapentin 100 mg oral cap 1 cap 3 times per day [Active]; torsemide 20 mg oral tab 1 tab twice a day [Active]; triamcinolone acetonide 0.5 % Topical crea [Active]; - PMHx: 19:55 eczema; Hypertensive disorder; Myocardial infarction; as6 - PSHx: 19:55 bypass; as6 - Immunization history:: Client reports receiving the 2nd dose of the Covid vaccine, moderna. - Social history:: Smoking status: Patient reports the use of cigarette tobacco products, cigars, Patient uses alcohol. - Family history:: not pertinent. ROS: 21:51 Constitutional: Negative for fever, chills, and weight loss, Eyes: Negative for injury, roseline pain, redness, and discharge, ENT: Negative for injury, pain, and discharge, Neck: Negative for injury, pain, and swelling, Cardiovascular: Negative for chest pain, palpitations, and edema, Respiratory: Negative for shortness of breath, cough, wheezing, and pleuritic chest pain, Back: Negative for injury and pain, : Negative for injury, bleeding, discharge, and swelling, MS/Extremity: Negative for injury and deformity, Neuro: Negative for headache, weakness, numbness, tingling, and seizure, Psych: Negative for depression, anxiety, suicide ideation, homicidal ideation, and hallucinations, Allergy/Immunology: Negative for hives, rash, and allergies, Endocrine: Negative for neck swelling, polydipsia, polyuria, polyphagia, and marked weight changes, Hematologic/Lymphatic: Negative for swollen nodes, abnormal bleeding, and unusual bruising. 21:51 Abdomen/GI: Positive for abdominal pain, of the right lower quadrant and left lower quadrant. 21:51 Skin: Positive for erythema, rash, swelling, of the abdomen. Exam: 21:51 Constitutional: This is a well developed, well nourished patient who is awake, alert, roseline and in no acute distress. Head/Face: Normocephalic, atraumatic. Eyes: Pupils equal round and reactive to light, extra-ocular motions intact. Lids and lashes normal. Conjunctiva and sclera are non-icteric and not injected. Cornea within normal limits. Periorbital areas with no swelling, redness, or edema. ENT: Nares patent. No nasal discharge, no septal abnormalities noted. Tympanic membranes are normal and external auditory canals are clear. Oropharynx with no redness, swelling, or masses, exudates, or evidence of obstruction, uvula midline. Mucous membranes moist. Neck: Trachea midline, no thyromegaly or masses palpated, and no cervical lymphadenopathy. Supple, full range of motion without nuchal rigidity, or vertebral point tenderness. No Meningismus. Chest/axilla: Normal chest wall appearance and motion. Nontender with no deformity. No lesions are appreciated. Cardiovascular: Regular rate and rhythm with a normal S1 and S2. No gallops, murmurs, or rubs. Normal PMI, no JVD. No pulse deficits. Respiratory: Lungs have equal breath sounds bilaterally, clear to auscultation and percussion. No rales, rhonchi or wheezes noted. No increased work of breathing, no retractions or nasal flaring. Abdomen/GI: Soft, non-tender, with normal bowel sounds. No distension or tympany. No guarding or rebound. No evidence of tenderness throughout. Back: No spinal tenderness. No costovertebral tenderness. Full range of motion. Male : Normal genitalia with no discharge or lesions. MS/ Extremity: Pulses equal, no cyanosis. Neurovascular intact. Full, normal range of motion. Neuro: Awake and alert, GCS 15, oriented to person, place, time, and situation. Cranial nerves II-XII grossly intact. Motor strength 5/5 in all extremities. Sensory grossly intact. Cerebellar exam normal. Normal gait. Psych: Awake, alert, with orientation to person, place and time. Behavior, mood, and affect are within normal limits. 21:51 Skin: cellulitis, that is moderate, induration, that is moderate is noted, injury, is not appreciated. Vital Signs: 19:51 BP 133 / 75; Pulse 82; Resp 18 S; Temp 98.2(O); Pulse Ox 95% on R/A; Weight 93.89 kg as6 (R); Height 6 ft. 0 in. (182.88 cm) (R); Pain 0/10; 21:38 BP 130 / 75; Pulse 81; Resp 16 S; Pulse Ox 96% on R/A; ha1 22:40 BP 132 / 78; Pulse 80; Resp 18 S; Pulse Ox 95% on R/A; ha1 23:38 BP 135 / 79; Pulse 82; Resp 17 S; Pulse Ox 96% on R/A; ha1 19:51 Body Mass Index 28.07 (93.89 kg, 182.88 cm) as6 MDM: 21:38 Patient medically screened. [facility] 21:53 Differential diagnosis: impetigo, allergic reaction. Data reviewed: vital signs, nurses [facility] notes, lab test result(s), radiologic studies, ultrasound. Data interpreted: compliance monitor: not applicable for this patient encounter. rate is 82 beats/min, Pulse oximetry: on is 95 %. Test interpretation: by ED physician or midlevel provider:. Counseling: I had a detailed discussion with the patient and/or guardian regarding: the historical points, exam findings, and any diagnostic results supporting the discharge/admit diagnosis, lab results, radiology results. 12/26 21:50 Order name: CBC with Diff; Complete Time: 23:04 [facility] 12/26 21:50 Order name: Comprehensive Metabolic Panel; Complete Time: 23:30 [facility] 12/26 21:50 Order name: US Abdomen Limited: ABDOMINAL WALL ONLY, RO ABSCESSES; Complete Time: 22:47 [facility] 12/26 21:50 Order name: Lactate; Complete Time: 23:30 [facility] 12/26 21:50 Order name: Blood Culture Adult (2) [facility] 12/26 23:04 Order name: Ice pack; Complete Time: 00:07 [facility] 12/26 23:31 Order name: PO challenge: 2 X OJ; Complete Time: 00:07 [facility] Administered Medications: 23:03 Drug: Pepcid (famotidine) 40 mg Route: IVP; Site: right antecubital; 3 12/27 00:12 Follow up: Response: No adverse reaction [facility] 12/26 23:03 Drug: Benadryl (diphenhydrAMINE) 50 mg Route: IVP; Site: right antecubital; 3 12/27 00:12 Follow up: Response: No adverse reaction [facility] 12/26 23:03 Drug: KeFLEX (cephalexin) 500 mg Route: PO; 3 12/27 00:12 Follow up: Response: No adverse reaction 12/26 23:04 Drug: NS 0.9% 1000 ml Route: IV; Rate: 125 ml/hr; Site: right antecubital; 3 12/27 00:13 Follow up: Response: No adverse reaction; IV Status: Order to discontinue infusion; IV ha1 Intake: 250ml 12/26 23:04 Drug: NS 0.9% 500 ml Route: IV; Rate: bolus; Site: right antecubital; 3 12/27 00:13 Follow up: Response: No adverse reaction; IV Status: Completed infusion; IV Intake: ha1 500ml 12/26 23:04 Drug: Ancef (cefazolin) 2 grams Route: IVPB; Infused Over: 30 mins; Site: right ll3 antecubital; 23:04 Drug: Doxycycline 200 mg Route: PO; 3 12/27 00:12 Follow up: Response: No adverse reaction 12/26 23:37 Drug: Potassium Effervescent Tablet 50 mEq Route: PO; 1 12/27 00:07 Follow up: Response: No adverse reaction ha1 Disposition Summary: 12/26/21 23:32 Discharge Ordered Location: Home roseline Problem: new roseline Symptoms: have improved roseline Condition: Stable roseline Diagnosis - Cellulitis of abdominal wall roseline - Dermatitis, unspecified - ALLERGIC roseline - Hypokalemia [facility] Followup: [facility] - With: Private Physician - When: 2 - 3 days - Reason: Recheck today's complaints, Continuance of care, Re-evaluation by your physician Followup: roseline - With: Babak Coronel MD - When: 2 - 3 days - Reason: Recheck today's complaints, Re-evaluation by your physician Discharge Instructions: - Discharge Summary Sheet roseline - Cellulitis, Adult roseline - Drug Allergy, [id number] roseline - Drug Allergy roseline - Cellulitis, Adult, [id number] roseline - Potassium Content of Foods roseline - Hypokalemia [facility] Forms: - Medication Reconciliation Form [facility] - Thank You Letter [facility] - Antibiotic Education [facility] - Prescription Opioid Use [facility] Prescriptions: - Benadryl 25 mg Oral Capsule - take 2 capsule by ORAL route every 6 hours As needed; 45 tablet; Refills: 0, [facility] Product Selection Permitted - Cephalexin 500 mg Oral Capsule - take 1 capsule by ORAL route every 6 hours for 10 days; 40 capsule; Refills: 0, [facility] Product Selection Permitted - Pepcid 20 mg Oral Tablet - take 1 tablet by ORAL route every 12 hours for 21 days; 42 tablet; Refills: 0, [facility] Product Selection Permitted - Doxycycline Hyclate 100 mg Oral Tablet - take 1 tablet by ORAL route every 12 hours; 20 tablet; Refills: 0, Product [facility] Selection Permitted - Potassium Chloride 20 meq Oral Packet - take 1 packet by ORAL route once daily 1 packet in 6 (six) ounces of water or roseline juice; Take after meal; 14 packet; Refills: 0, Product Selection Permitted Signatures: Dispatcher [employer] Jeet Elise MD MD cha Slawson, Ashby RN RN as6 Crystal Carter RN RN ll3 Brina Hyde RN RN ha1
--- NOTE | 2021-12-26 23:33 | ER ---
Nurse's Notes [facility] Name: Toy Barrios Age: 66 yrs Sex: Male : 1955 Arrival Date: 12/26/2021 Time: 19:49 Bed 6 Private MD: Diagnosis: Cellulitis of abdominal wall;Dermatitis, unspecified-ALLERGIC;Hypokalemia Presentation: 12/26 19:51 Chief complaint: Patient states: "I have a log of skin issues but today I noticed a new as6 rash and its inflamed and hurts". Coronavirus screen: At this time, the client does not indicate any symptoms associated with coronavirus-19. Ebola Screen: No symptoms or risks identified at this time. Initial Sepsis Screen: Does the patient meet any 2 criteria? No. Patient's initial sepsis screen is negative. Does the patient have a suspected source of infection? No. Patient's initial sepsis screen is negative. Risk Assessment: Do you want to hurt yourself or someone else? Patient reports no desire to harm self or others. Onset of symptoms was December 26, 2021 at 15:00. 19:51 Method Of Arrival: Ambulatory as6 19:51 Acuity: LICHA 3 as6 Triage Assessment: 19:57 General: Appears in no apparent distress. Behavior is calm. Pain: Denies pain. Derm: as6 Rash noted that is red, on abdomen. Historical: - Allergies: 19:55 topical eczema cream; as6 - Home Meds: 19:58 clopidogrel 75 mg oral tab 1 tab once daily [Active]; metoprolol tartrate 25 mg Oral as6 tab 1 tab once daily [Active]; atorvastatin 80 mg oral tab 1 tab once daily [Active]; gabapentin 100 mg oral cap 1 cap 3 times per day [Active]; torsemide 20 mg oral tab 1 tab twice a day [Active]; triamcinolone acetonide 0.5 % Topical crea [Active]; - PMHx: 19:55 eczema; Hypertensive disorder; Myocardial infarction; as6 - PSHx: 19:55 bypass; as6 - Immunization history:: Client reports receiving the 2nd dose of the Covid vaccine, moderna. - Social history:: Smoking status: Patient reports the use of cigarette tobacco products, cigars, Patient uses alcohol. - Family history:: not pertinent. Screenin:37 Abuse screen: Denies threats or abuse. ha1 21:37 Nutritional screening: No deficits noted. Tuberculosis screening: No symptoms or risk ha1 factors identified. Fall Risk Gait- Normal/Bed Rest/Wheelchair (0 pts) Mental Status- Oriented to own ability (0 pts). Total Pruitt Fall Scale indicates No Risk (0-24 pts). Assessment: 21:37 General: Appears in no apparent distress. Behavior is calm, cooperative. Neuro: No ha1 deficits noted. Level of Consciousness is awake, alert, obeys commands, Oriented to person, place, time, situation. Cardiovascular: Denies chest pain, shortness of breath, Capillary refill < 3 seconds Patient's skin is warm and dry. Respiratory: Airway is patent Trachea midline Respiratory effort is even, unlabored, Respiratory pattern is regular, symmetrical, Breath sounds are clear bilaterally. GI: No signs and/or symptoms were reported involving the gastrointestinal system. Abdomen is flat, non-distended, Bowel sounds present X 4 quads. : No signs and/or symptoms were reported regarding the genitourinary system. EENT: No deficits noted. No signs and/or symptoms were reported regarding the EENT system. Derm: Rash noted that is itchy, red, on abdomen Reports itching. Musculoskeletal: Range of motion: intact in all extremities. 22:30 Reassessment: Patient appears in no apparent distress at this time. Patient and/or ha1 family updated on plan of care and expected duration. Pain level reassessed. Patient is alert, oriented x 3, equal unlabored respirations, skin warm/dry/pink. 23:15 Pain: Denies pain. ha1 23:23 Reassessment: Patient appears in no apparent distress at this time. No changes from ha1 previously documented assessment. Patient and/or family updated on plan of care and expected duration. Pain level reassessed. Patient is alert, oriented x 3, equal unlabored respirations, skin warm/dry/pink. 12/27 00:08 Reassessment: Patient and/or family updated on plan of care and expected duration. Pain ha1 level reassessed. Patient is alert, oriented x 3, equal unlabored respirations, skin warm/dry/pink. being discharged Patient states feeling better. Vital Signs: 12/26 19:51 BP 133 / 75; Pulse 82; Resp 18 S; Temp 98.2(O); Pulse Ox 95% on R/A; Weight 93.89 kg as6 (R); Height 6 ft. 0 in. (182.88 cm) (R); Pain 0/10; 21:38 BP 130 / 75; Pulse 81; Resp 16 S; Pulse Ox 96% on R/A; ha1 22:40 BP 132 / 78; Pulse 80; Resp 18 S; Pulse Ox 95% on R/A; ha1 23:38 BP 135 / 79; Pulse 82; Resp 17 S; Pulse Ox 96% on R/A; ha1 19:51 Body Mass Index 28.07 (93.89 kg, 182.88 cm) as6 ED Course: 19:49 Patient arrived in ED. ss 19:55 Triage completed. as6 19:57 Arm band placed on. as6 21:37 Patient has correct armband on for positive identification. Placed in gown. Bed in low ha1 position. Call light in reach. Side rails up X 1. 21:38 Jeet Tee MD is Attending Physician. [facility] 21:46 Brina Hyde RN is Primary Nurse. ha1 22:22 US Abdomen Limited: ABDOMINAL WALL ONLY, RO ABSCESSES In Process Unspecified. EDMS 22:45 Inserted saline lock: 20 gauge in right antecubital area, using aseptic technique. ds4 Blood collected. 23:32 Babak Coronel MD is Referral Physician. [facility] 12/27 00:08 No provider procedures requiring assistance completed. IV discontinued, intact, ha1 bleeding controlled, No redness/swelling at site. Pressure dressing applied. Administered Medications: 12/26 23:03 Drug: Pepcid (famotidine) 40 mg Route: IVP; Site: right antecubital; 3 12/27 00:12 Follow up: Response: No adverse reaction [facility] 12/26 23:03 Drug: Benadryl (diphenhydrAMINE) 50 mg Route: IVP; Site: right antecubital; 3 12/27 00:12 Follow up: Response: No adverse reaction [facility] 12/26 23:03 Drug: KeFLEX (cephalexin) 500 mg Route: PO; ll3 12/27 00:12 Follow up: Response: No adverse reaction [facility] 12/26 23:04 Drug: NS 0.9% 1000 ml Route: IV; Rate: 125 ml/hr; Site: right antecubital; 3 12/27 00:13 Follow up: Response: No adverse reaction; IV Status: Order to discontinue infusion; IV ha1 Intake: 250ml 12/26 23:04 Drug: NS 0.9% 500 ml Route: IV; Rate: bolus; Site: right antecubital; ll3 12/27 00:13 Follow up: Response: No adverse reaction; IV Status: Completed infusion; IV Intake: ha1 500ml 12/26 23:04 Drug: Ancef (cefazolin) 2 grams Route: IVPB; Infused Over: 30 mins; Site: right ll3 antecubital; 23:04 Drug: Doxycycline 200 mg Route: PO; 3 12/27 00:12 Follow up: Response: No adverse reaction ha1 12/26 23:37 Drug: Potassium Effervescent Tablet 50 mEq Route: PO; ha1 12/27 00:07 Follow up: Response: No adverse reaction ha1 Medication: 00:10 VIS not applicable for this client. ha1 Intake: 00:13 IV: 500ml; Total: 500ml. ha1 00:13 IV: 250ml; Total: 750ml. ha1 Outcome: 12/26 23:32 Discharge ordered by . roseline 12/27 00:09 Discharged to home ambulatory. ha1 Condition: stable Discharge instructions given to patient, Instructed on discharge instructions, Demonstrated understanding of instructions, follow-up care, medications, Prescriptions given X five 00:11 Patient left the ED. ha1 Signatures: Dispatcher [employer] EDKS Jeet Tee MD MD cha Smirch, Shelby, RN RN ss Bautista Gonzalez ds4 Antonio Brunson RN RN as6 Crystal Carter RN RN ll3 Brina Hyde RN RN ha1 Corrections: (The following items were deleted from the chart) 12/26 23:23 23:15 General: Appears in no apparent distress. Behavior is calm, cooperative, ha1 ha1 23:23 23:15 Neuro: No deficits noted. Level of Consciousness is awake, alert, obeys commands, ha1 Oriented to person, place, time, situation, ha1 23:23 23:15 Cardiovascular: Denies chest pain, shortness of breath, Capillary refill < 3 ha1 seconds Patient's skin is warm and dry. ha1 :23 23:15 Respiratory: Airway is patent Trachea midline Respiratory effort is even, ha1 unlabored, Respiratory pattern is regular, symmetrical, Breath sounds are clear bilaterally. ha1 :23 23:15 GI: No signs and/or symptoms were reported involving the gastrointestinal system. ha1 Abdomen is flat, non-distended, Bowel sounds present X 4 quads. ha1 :23 23:15 : No signs and/or symptoms were reported regarding the genitourinary system. ha1ha1 :23 23:15 EENT: No deficits noted. No signs and/or symptoms were reported regarding the ha1 EENT system. ha1 :23 23:15 Derm: Rash noted that is itchy, red, on abdomen Reports itching, ha1 ha1 23:23 23:15 Musculoskeletal: Range of motion: intact in all extremities, ha1 ha1 23:28 23:28 Inserted saline lock: 20 gauge in right antecubital area, using aseptic ds4 technique. Blood collected. ds4
[2021-12-26] MEDS ORDERED: POTASSIUM 25 MEQ EFFERV TAB ONE (23:49)
[2021-12-27 03:06] VITALS: BP 133/75; TEMP 98.2; O2SAT 95
== END 2021-12-27 00:11 | disposition home or self-care (01) ==
LOC: ER 19:20
DX: L03.311 Cellulitis of abdominal wall (principal); L23.9 Allergic contact dermatitis, unspecified cause; E87.6 Hypokalemia; I10 Essential (primary) hypertension; F17.290 Nicotine dependence, other tobacco product, uncomplicated; Z95.1 Presence of aortocoronary bypass graft; Z88.8 Allergy status to other drugs, medicaments and biological substances
CPT/HCPCS: 96361; 87040 ×2; 85025; 36415; 83605; 80053; 76705; 96375; 96374; 99284; J1200; J7040; J7030; J0690

== ENCOUNTER → 2023-05-03 | Emergency (ER) | payer BC, OTHER ==
[~2023-05-03] MED LIST: MORPHINE 4 MG/ML SYR ONE; ONDANSETRON 4 MG (ODT) TAB ONE
--- NOTE | 2023-05-03 13:54 | RAD REPORT ---
EXAM DESCRIPTION: Ribs Right - 05/03/2023 1:26 pm CLINICAL HISTORY: TRAUMA COMPARISON: Chest Single View dated 03/29/2021 TECHNIQUE: Right ribs, 3 views. FINDINGS: No displaced rib fracture is evident. No aggressive rib lesion. No underlying pneumothorax, effusion, infiltrate or pulmonary contusion. IMPRESSION: Negative right rib series.
--- NOTE | 2023-05-03 13:58 | EDPHYS ---
Physician Documentation [facility] Name: Toy Barrios Age: 67 yrs Sex: Male : 1955 Arrival Date: 05/03/2023 Time: 10:30 Bed 22 Private MD: ED Physician Paramjit Proctor HPI: 05/03 12:54 This 67 yrs old Male presents to ER via Ambulatory with complaints of Fall Injury, Back sb4 Pain, Rib pain. 12:54 Details of fall: The patient fell from an upright position, while standing. Onset: The sb4 symptoms/episode began/occurred last night. Associated injuries: The patient sustained injury to the chest, specifically the right lateral posterior chest, contusion, pain with breathing, pain with movement, tenderness. The patient has not recently seen a physician. patient slipped in the shower, hit his right back on the edge of the tub. complains of pain to posterior rib right. no difficulty breathing, but pain with deep inspriation. Historical: - Allergies: 11:30 topical eczema cream; iw - PMHx: 11:30 eczema; Hypertensive disorder; Myocardial infarction; iw - PSHx: 11:30 bypass; iw - Immunization history:: Adult Immunizations up to date. - Social history:: Smoking status: . ROS: 14:00 Constitutional: Negative for fever, chills, and weight loss, sb4 14:00 MS/extremity: Positive for injury or acute deformity, pain, of the right lateral posterior chest, 14:00 All other systems are negative, Exam: 14:00 Constitutional: This is a well developed, well nourished patient who is awake, alert, sb4 and in no acute distress. Head/Face: Normocephalic, atraumatic. Eyes: Extra-ocular motions intact. Periorbital areas with no swelling, redness, or edema. ENT: Mucous membranes moist. Cardiovascular: Regular rate and rhythm with a normal S1 and S2. Respiratory: Lungs have equal breath sounds bilaterally, clear to auscultation and percussion. No rales, rhonchi or wheezes noted. No increased work of breathing, no retractions or nasal flaring. Abdomen/GI: Soft, non-tender, no distension. Skin: Warm, dry with normal turgor. Normal color with no rashes, no lesions, and no evidence of cellulitis. MS/ Extremity: Pulses equal, no cyanosis. Neurovascular intact. Full, normal range of motion. Neuro: Awake and alert, GCS 15, oriented to person, place, time, and situation. Motor strength 5/5 in all extremities. Sensory grossly intact. 14:00 Chest/axilla: Inspection: normal, no acute changes, Palpation: tenderness, that is moderate, of the right lateral posterior chest, that partially reproduces the patient's complaints, Vital Signs: 11:29 BP 143 / 89; Pulse 81; Resp 16; Temp 98.2; Pulse Ox 98% ; Weight 91.63 kg; Height 6 ft. iw 0 in. ; 14:30 BP 135 / 85; Pulse 79; Resp 18; Pulse Ox 99% ; kb3 11:29 Body Mass Index 27.40 (91.63 kg, 182.88 cm) iw MDM: 12:38 Patient medically screened. sb4 14:00 Differential diagnosis: contusion, fracture, sprain. Data reviewed: vital signs, nurses sb4 notes, radiologic studies, and as a result, I will discharge patient. Counseling: I had a detailed discussion with the patient and/or guardian regarding the historical points, exam findings, and any diagnostic results supporting the discharge/admit diagnosis, radiology results, to return to the emergency department if symptoms worsen or persist or if there are any questions or concerns that arise at home. 05/03 12:53 Order name: Ribs Right XRAY; Complete Time: 13:57 sb4 05/03 13:57 Order name: INCENTIVE SPIROMETRY sb4 Administered Medications: 13:18 Drug: morphine IM 4 mg IM once Route: IM; Site: right deltoid; kb3 14:45 Follow up: Response: No adverse reaction; Pain is decreased kb3 14:45 Follow up: Response: No adverse reaction; Pain is decreased kb3 13:18 Drug: Ondansetron Oral Disintegrating Tablet Oral Disintegrating Tablet 4 mg PO once kb3 Route: PO; Disposition: 18:40 I was immediately available on-site in the Emergency Department for consultation in the ms3 care of the patient. Disposition Summary: 05/03/23 13:57 Discharge Ordered Notes: Location: Home sb4 Problem: new sb4 Symptoms: have improved sb4 Condition: Stable sb4 Diagnosis - Sprain of ribs, initial encounter sb4 Followup: sb4 - With: Emergency Department - When: As needed - Reason: Trouble breathing, Worsening of condition Discharge Instructions: - Discharge Summary Sheet sb4 - Rib Contusion sb4 - How to Use an Incentive Spirometer sb4 Forms: - Medication Reconciliation Form sb4 - Thank You Letter sb4 - Antibiotic Education sb4 - Prescription Opioid Use sb4 - Patient Portal Instructions sb4 - Leadership Thank You Letter sb4 Prescriptions: - Cyclobenzaprine 10 mg Oral Tablet - take 1 tablet ORAL route every 8 hours As needed; 30 tablet; Refills: 0, sb4 Product Selection Permitted - Diclofenac Sodium 75 mg Oral Tablet Sustained Release - take 1 tablet ORAL route 2 times per day; 30 tablet; Refills: 0, Product sb4 Selection Permitted - Tramadol 50 mg Oral Tablet - take 1 tablet ORAL route every 8 hours as needed; 12 tablet; Refills: 0, sb4 Product Selection Permitted Signatures: Dispatcher [employer] Kassandra Kaur RN RN iw Paramjit Proctor DO DO ms3 Leila Castañeda RN RN kb3 Glenna Valle PA-C PALaila sb4
--- NOTE | 2023-05-03 13:58 | ER ---
Nurse's Notes [facility] Name: Toy Barrios Age: 67 yrs Sex: Male : 1955 Arrival Date: 05/03/2023 Time: 10:30 Bed 22 Private MD: Diagnosis: Sprain of ribs, initial encounter Presentation: 05/03 11:29 Chief complaint: Patient states: FALL IN TUB LAST NIGHT. Coronavirus screen: At this iw time, the client does not indicate any symptoms associated with coronavirus-19. Ebola Screen: No symptoms or risks identified at this time. Initial Sepsis Screen: Does the patient meet any 2 criteria? No. Patient's initial sepsis screen is negative. Does the patient have a suspected source of infection? No. Patient's initial sepsis screen is negative. Risk Assessment: Do you want to hurt yourself or someone else? Patient reports no desire to harm self or others. Onset of symptoms is unknown. 11:29 Method Of Arrival: Ambulatory iw 11:29 Acuity: LICHA 4 iw Historical: - Allergies: 11:30 topical eczema cream; iw - PMHx: 11:30 eczema; Hypertensive disorder; Myocardial infarction; iw - PSHx: 11:30 bypass; iw - Immunization history:: Adult Immunizations up to date. - Social history:: Smoking status: . Screenin:[address] [facility] ED Fall Risk Assessment (Adult) History of falling in the last 3 months, kb3 including since admission Yes- single mechanical fall (1 pt) Confusion or Disorientation No (0 pts) Intoxicated or Sedated No (0 pts) Impaired Gait No (0 pts) Mobility Assist Device Used No (0 pt) Altered Elimination No (0 pt) Score/Fall Risk Level 0 - 2 = Low Risk Oriented to surroundings, Maintained a safe environment, Educated pt \T\ family on fall prevention, incl call for assistance when getting out of bed. Abuse screen: Denies threats or abuse. Nutritional screening: No deficits noted. Tuberculosis screening: No symptoms or risk factors identified. Assessment: 13:15 General: Appears in no apparent distress. uncomfortable, Behavior is calm, cooperative. kb3 13:15 Pain: Complains of pain in right lateral anterior chest Pain does not radiate. Pain kb3 currently is 10 out of 10 on a pain scale. Quality of pain is described as pressure, throbbing, Spasms. 13:18 General: PT to xray via WC. kb3 Vital Signs: 11:29 BP 143 / 89; Pulse 81; Resp 16; Temp 98.2; Pulse Ox 98% ; Weight 91.63 kg; Height 6 ft. iw 0 in. ; 14:30 BP 135 / 85; Pulse 79; Resp 18; Pulse Ox 99% ; kb3 11:29 Body Mass Index 27.40 (91.63 kg, 182.88 cm) iw ED Course: 10:33 Patient arrived in ED. mr 11:30 Triage completed. iw 11:30 Arm band placed on. iw 12:38 Glenna Valle PA-C is PHCP. sb4 12:38 Paramjit Proctor DO is Attending Physician. sb4 13:27 Ribs Right XRAY In Process Unspecified. EDMS 14:30 Patient has correct armband on for positive identification. Provided Education on: kb3 Ice/heat alternating for pain relief, medications as prescribed, rest. 14:30 No provider procedures requiring assistance completed. Patient did not have IV access kb3 during this emergency room visit. 14:45 INCENTIVE SPIROMETRY Sent. kb3 Administered Medications: 13:18 Drug: morphine IM 4 mg IM once Route: IM; Site: right deltoid; kb3 14:45 Follow up: Response: No adverse reaction; Pain is decreased kb3 14:45 Follow up: Response: No adverse reaction; Pain is decreased kb3 13:18 Drug: Ondansetron Oral Disintegrating Tablet Oral Disintegrating Tablet 4 mg PO once kb3 Route: PO; Medication: 14:30 VIS not applicable for this client. kb3 Outcome: 13:57 Discharge ordered by . sb4 14:30 Discharged to home ambulatory, kb3 14:30 Condition: stable 14:30 Discharge instructions given to patient, family, Instructed on discharge instructions, follow up and referral plans. medication usage, Demonstrated understanding of instructions, follow-up care, medications, Prescriptions given X 3, 14:50 Patient left the ED. kb3 Signatures: Dispatcher [employer] EDMI SaeedKathi, Reg Reg Kassandra Johnson, RN RN iw Leila Castañeda RN RN kb3 Glenna Valle PA-C PA-C sb4
[2023-05-03 15:42] VITALS: BP 135/85; TEMP 98.2; O2SAT 99
== END ==
LOC: ER 10:30
DX: S23.41XA Sprain of ribs, initial encounter (principal); W01.198A Fall on same level from slipping, tripping and stumbling with subsequent striking against other object, initial encounter; Z88.8 Allergy status to other drugs, medicaments and biological substances
CPT/HCPCS: 71100; 96372; 99284; Q0162

== ENCOUNTER → 2023-05-24 | Emergency (ER) | payer BC, OTHER ==
[~2023-05-24] MED LIST changes: +LIDOCAINE 2% W/EPI 1:200,000 MPF 20 ML VIAL IM ONE; -MORPHINE 4 MG/ML SYR ONE; -ONDANSETRON 4 MG (ODT) TAB ONE
--- NOTE | 2023-05-25 02:39 | EDPHYS ---
Physician Documentation [facility] Name: Toy Barrios Age: 67 yrs Sex: Male : 1955 Arrival Date: 05/24/2023 Time: 23:14 Bed 15 Private MD: ED Physician Don Staton HPI: 05/24 23:24 This 67 yrs old Male presents to ER via Unassigned with complaints of sp4 bleeding . 05/25 20:05 Patient presents with small varicose vein bleeding from left lower extremity. . sp4 20:07 Patient presents with bleeding ulcer left lower extremity which she has accidentally sp4 scratched just prior to arrival. This caused significant bleeding. . Historical: - Allergies: 05/24 23:34 topical eczema cream; ha1 - Home Meds: 23:34 atorvastatin 80 mg Oral tab 1 tab once daily [Active]; ha1 23:49 clopidogrel 75 mg Oral tab 1 tab once daily [Active]; Aspirin Oral [Active]; ha1 - PMHx: 23:34 eczema; Hypertensive disorder; Myocardial infarction; ha1 - PSHx: 23:34 bypass; ha1 - Immunization history:: Adult Immunizations up to date. - Social history:: Smoking status: Patient reports use of chewing tobacco. - Family history:: not pertinent. ROS: 05/25 20:07 Constitutional: Negative for fever, chills, and weight loss, positive bleeding ulcer sp4 left lower extremity All other systems are negative, Exam: 20:07 Constitutional: This is a well developed, well nourished patient who is awake, alert, sp4 and in no acute distress. Head/Face: Normocephalic, atraumatic. Eyes: Pupils equal round and reactive to light, extra-ocular motions intact. Lids and lashes normal. Conjunctiva and sclera are not injected. Cornea within normal limits. Periorbital areas with no swelling, redness, or edema. ENT: Nares patent. No nasal discharge, no septal abnormalities noted. Tympanic membranes are normal and external auditory canals are clear. Oropharynx with no redness, swelling, or masses, exudates, or evidence of obstruction, uvula midline. Mucous membranes moist. Neck: Trachea midline, no thyromegaly or masses palpated, and no cervical lymphadenopathy. Supple, full range of motion without nuchal rigidity, or vertebral point tenderness. Chest/axilla: Normal chest wall appearance and motion. Nontender with no deformity. No lesions are appreciated. Cardiovascular: Regular rate and rhythm with a normal S1 and S2. No gallops, murmurs, or rubs. Normal PMI, no JVD. No pulse deficits. Respiratory: Lungs have equal breath sounds bilaterally, clear to auscultation and percussion. No rales, rhonchi or wheezes noted. No increased work of breathing, no retractions or nasal flaring. Abdomen/GI: Soft, non-tender, with normal bowel sounds. No distension or tympany. No guarding or rebound. No evidence of tenderness throughout. Back: No spinal tenderness. No costovertebral tenderness. Skin: Warm, dry with normal turgor. Normal color with no rashes, no lesions, and no evidence of cellulitis. MS/ Extremity: Pulses equal, no cyanosis. Neurovascular intact. Full, normal range of motion. Left lower extremity anterior for the left knee there is a small ulcer without active bleeding. Appears to be varicose vein ulcer Neuro: Awake and alert, GCS 15, oriented to person, place, time, and situation. Cranial nerves II-XII grossly intact. Motor strength 5/5 in all extremities. Sensory grossly intact. Psych: Awake, alert, with orientation to person, place and time. Behavior, mood, and affect are within normal limits Vital Signs: 05/24 23:31 BP 131 / 73; Pulse 83; Resp 17 S; Temp 98.1; Pulse Ox 97% on R/A; Weight 91.63 kg; ha1 Height 6 ft. 0 in. ; 05/25 00:30 BP 131 / 58; Pulse 87; Resp 17 S; Pulse Ox 96% on R/A; ha1 01:30 BP 115 / 77; Pulse 88; Resp 17 S; Pulse Ox 97% on R/A; 1 02:30 BP 112 / 68; Pulse 86; Resp 17 S; Pulse Ox 97% on R/A; ha1 05/24 23:31 Body Mass Index 27.40 (91.63 kg, 182.88 cm) 1 [place] Coma Score: 20:07 Eye Response: spontaneous(4). Motor Response: obeys commands(6). Verbal Response: sp4 oriented(5). Total: 15. Laceration: 02:35 Wound Repair of 0.5cm ( 0.2in ) subcutaneous laceration to left saldivar - small anterior sp4 leg ulcer with bleeding varicose vein. . Moderate varicose vein bleeding . Distal neuro/vascular/tendon intact. Anesthesia: Wound infiltrated with 5 mls of 1% lidocaine w/ Epi. Wound prep: Moderate cleansing by me. Skin closed with 3 4-0 Silk using vertical mattress sutures and sterile technique. Dressed with 4x4's, pressure dressing. Patient tolerated well. MDM: 05/24 23:28 Patient medically screened. sp4 05/25 02:35 Differential Diagnosis altered mental status, sepsis, flu, bleeding varicose vein . sp4 Data reviewed: vital signs, nurses notes. ED course: bleeding varicose vein was sutures with Silk sutures. Advised to let sutures followed by themselves, stable for discharge home with daily dressing changes. . 05/24 23:28 Order name: Dressing - Wound; Complete Time: 23:45 sp4 05/24 23:28 Order name: Gloves, Sterile; Complete Time: 23:45 sp4 05/24 23:28 Order name: Setup Suture Tray; Complete Time: 23:45 sp4 Administered Medications: 02:30 Drug: Lidocaine-Epinephrine Infiltration -1%: (1:100,000) 20 ml 20 ml Infiltration ha1 once; to bedside {Note: administered by Dr. Staton.} Volume: 20 ml; Route: Infiltration; 02:55 Follow up: Response: No adverse reaction ha1 Disposition Summary: 05/25/23 02:38 Discharge Ordered Problem: new sp4 Symptoms: have improved sp4 Condition: Stable sp4 Diagnosis - Bleeding varicose vein with small ulcer, acute varicose vein bleeding left lower sp4 extremity Followup: sp4 - With: Private Physician - When: 7 - 10 days - Reason: Recheck today's complaints Discharge Instructions: - Discharge Summary Sheet sp4 - Sutured Wound Care, [id number] sp4 Forms: - Patient Portal Instructions sp4 Signatures: Brina Hyde RN RN 1 Don Staton MD MD sp4
--- NOTE | 2023-05-25 02:39 | ER ---
Nurse's Notes [facility] Name: Toy Barrios Age: 67 yrs Sex: Male : 1955 Arrival Date: 05/24/2023 Time: 23:14 Bed 15 Private MD: Diagnosis: Bleeding varicose vein with small ulcer, acute varicose vein bleeding left lower extremity Presentation: 05/24 23:31 Chief complaint: Patient states: I HAVE ECZEMA AND I SCRATCH MY SKIN AND STARTED TO ha1 BLEED A LOT FROM THE AREA. Coronavirus screen: Vaccine status: Patient reports receiving the 2nd dose of the covid vaccine. [place]. Ebola Screen: No symptoms or risks identified at this time. Initial Sepsis Screen: Does the patient meet any 2 criteria? No. Patient's initial sepsis screen is negative. Does the patient have a suspected source of infection? No. Patient's initial sepsis screen is negative. Risk Assessment: Do you want to hurt yourself or someone else? Patient reports no desire to harm self or others. Onset of symptoms was May 24, 2023. 23:31 Method Of Arrival: Ambulatory ha1 23:31 Acuity: LICHA 4 ha1 Triage Assessment: 23:34 General: Appears comfortable, Behavior is calm, cooperative. Pain: Denies pain. Neuro: ha1 Level of Consciousness is awake, alert, obeys commands, Oriented to person, place, time, situation. Cardiovascular: Capillary refill < 3 seconds. Respiratory: Airway is patent Respiratory effort is even, unlabored, Respiratory pattern is regular, symmetrical. Musculoskeletal: Circulation, motion, and sensation intact. Range of motion: intact in all extremities. Injury Description: Abrasion sustained to LEFT saldivar is bleeding, MODERATELY PRESSURE APPLIED. Historical: - Allergies: 23:34 topical eczema cream; ha1 - Home Meds: 23:34 atorvastatin 80 mg Oral tab 1 tab once daily [Active]; ha1 23:49 clopidogrel 75 mg Oral tab 1 tab once daily [Active]; Aspirin Oral [Active]; ha1 - PMHx: 23:34 eczema; Hypertensive disorder; Myocardial infarction; ha1 - PSHx: 23:34 bypass; ha1 - Immunization history:: Adult Immunizations up to date. - Social history:: Smoking status: Patient reports use of chewing tobacco. - Family history:: not pertinent. Screenin:30 [facility] ED Fall Risk Assessment (Adult) History of falling in the last 3 months, ha1 including since admission No falls in past 3 months (0 pts) Confusion or Disorientation No (0 pts) Intoxicated or Sedated No (0 pts) Impaired Gait No (0 pts) Mobility Assist Device Used No (0 pt) Altered Elimination No (0 pt) Score/Fall Risk Level 0 - 2 = Low Risk Oriented to surroundings, Maintained a safe environment, Hourly rounding (assess needs \T\ fall precautionary measures) done. Abuse screen: Denies threats or abuse. Denies injuries from another. Nutritional screening: No deficits noted. Tuberculosis screening: No symptoms or risk factors identified. Assessment: 23:30 Reassessment: SEE TRIAGE ASSESSMENT. APPLIED DRESSING AND PRESSURE TO WOUND. ha1 05/25 00:30 Reassessment: Patient and/or family updated on plan of care and expected duration. Pain ha1 level reassessed. Patient is alert, oriented x 3, equal unlabored respirations, skin warm/dry/pink. 01:30 Reassessment: Patient and/or family updated on plan of care and expected duration. Pain ha1 level reassessed. Patient is alert, oriented x 3, equal unlabored respirations, skin warm/dry/pink. 02:30 Reassessment: Patient and/or family updated on plan of care and expected duration. Pain ha1 level reassessed. Patient is alert, oriented x 3, equal unlabored respirations, skin warm/dry/pink. Vital Signs: 05/24 23:31 BP 131 / 73; Pulse 83; Resp 17 S; Temp 98.1; Pulse Ox 97% on R/A; Weight 91.63 kg; ha1 Height 6 ft. 0 in. ; 05/25 00:30 BP 131 / 58; Pulse 87; Resp 17 S; Pulse Ox 96% on R/A; ha1 01:30 BP 115 / 77; Pulse 88; Resp 17 S; Pulse Ox 97% on R/A; ha1 02:30 BP 112 / 68; Pulse 86; Resp 17 S; Pulse Ox 97% on R/A; ha1 05/24 23:31 Body Mass Index 27.40 (91.63 kg, 182.88 cm) ha1 [place] Coma Score: 20:07 Eye Response: spontaneous(4). Motor Response: obeys commands(6). Verbal Response: sp4 oriented(5). Total: 15. ED Course: 05/24 23:23 Patient arrived in ED. gm2 23:24 Don Staton MD is Attending Physician. sp4 23:30 Brina Hyde RN is Primary Nurse. ha1 23:30 Patient has correct armband on for positive identification. Placed in gown. Bed in low ha1 position. Call light in reach. Side rails up X 1. 23:30 Arm band placed on right wrist. ha1 23:34 Triage completed. ha1 05/25 02:30 Assist provider with laceration repair on lateral aspect of left calf that was 2.5 cm. ha1 or less using sutures. Set up tray. Performed by Don Staton MD Dressed with 4X4s, Kerlix. 02:45 Provided Education on: wound care. ha1 02:55 Patient did not have IV access during this emergency room visit. ha1 Administered Medications: 02:30 Drug: Lidocaine-Epinephrine Infiltration -1%: (1:100,000) 20 ml 20 ml Infiltration ha1 once; to bedside {Note: administered by Dr. Staton.} Volume: 20 ml; Route: Infiltration; 02:55 Follow up: Response: No adverse reaction ha1 Medication: 05/24 23:48 VIS not applicable for this client. ha1 Outcome: 05/25 02:38 Discharge ordered by . sp4 02:55 Condition: stable ha1 02:55 Discharged to home ambulatory, ha1 02:55 Discharge instructions given to patient, Instructed on discharge instructions, follow up and referral plans. Demonstrated understanding of instructions, follow-up care, 03:00 Patient left the ED. ha1 Signatures: Brina Hyde RN RN ha1 Don Staton MD MD sp4 Michelle Rosales 2 Corrections: (The following items were deleted from the chart) 05/24 23:47 23:34 Injury Description: Abrasion sustained to right saldivar is bleeding, MODERATELY ha1 ha1 05/25 03:32 03:17 Patient left the ED. ha1 ha1
[2023-05-25 09:23] VITALS: BP 131/58; TEMP 98.1; O2SAT 96
== END ==
LOC: ER 23:14
PROC: 0HQLXZZ Repair Left Lower Leg Skin, External Approach (ICD-10-PCS; principal; 2023-05-24)
DX: I83.892 Varicose veins of left lower extremity with other complications (principal); I83.028 Varicose veins of left lower extremity with ulcer other part of lower leg; F17.220 Nicotine dependence, chewing tobacco, uncomplicated; Z88.8 Allergy status to other drugs, medicaments and biological substances

== ENCOUNTER 2024-05-15 22:04 | Emergency (ER) | payer BC, OTHER ==
[2024-05-15] MEDS ORDERED: METHYLPREDNISOLONE 125 MG INJ ONE (22:21)
[2024-05-15] MEDS ORDERED: FAMOTIDINE 20 MG/2 ML VIAL IV ONE (22:21)
[2024-05-15] MEDS ORDERED: ALBUTEROL 2.5 MG/3 ML NEB SOL ONE (22:21)
[2024-05-15] MEDS ORDERED: IPRATROPIUM BROM 0.5MG/2.5ML ONE (22:21)
[2024-05-15] MEDS ORDERED: DIPHENHYDRAMINE 50 MG/ML VIAL ONE (22:21)
[2024-05-15 22:52] LABS: Absolute Eosinophils 0.1 K/uL (0-0.5); Absolute Lymphocytes (CBC) 1.2 K/uL (0.7-4.9); Absolute Monocytes 0.1 K/uL (0.1-1.3); Absolute Neutrophil 4.5 K/uL (1.8-8.0); Basophils % 0.6 % (0-1.3); Hematocrit 53.8 % (39.6-49.0); Hemoglobin 18.3 g/dL (13.6-17.9); Lymphocytes % 20.6 % (15.3-44.8); MCH 33.3 pg (27.0-35.0); MCHC 34.1 g/dL (32.0-36.0); MCV 97.7 fL (80-100); MPV 8.2 fL (7.6-11.3); Monocytes % 1.2 % (3.3-12.3); Neutrophils % 76.6 % (41.7-73.7); PT Prothrombin Time 11.1 SECONDS (9.4-12.5); Platelets 148 thou/uL (152-406); Protime INR 1.06; RBC Red Blood Cell Count 5.51 M/uL (4.33-5.43); Red Cell Distribution Width 14.1 % (12.1-15.2)
[2024-05-15 23:02] LABS: SARS-CoV-2 Antigen CONTROL BLUE LINE VIS/BG OK; SARS-CoV-2 Antigen Rapid Res Negative (Negative)
[2024-05-15 23:06] LABS: Albumin 2.6 g/dL (3.4-5.0); Albumin/Globulin Ratio 0.7 (1.1-1.8); Anion Gap 13.7 mEq/L (5.0-15.0); Bilirubin Direct 0.3 mg/dL (0-0.2); Bilirubin Indirect, Calculated 0.5 mg/dL (0.2-0.8); Bilirubin Total 0.8 mg/dL (0.2-1.0); Globulin 3.9 g/dL (2.3-3.5); Potassium 2.7 mEq/L (3.5-5.1); Protein, Total 6.5 g/dL (6.4-8.2); Troponin High Sensitivity 27.6 pg/mL (<58.9)
[2024-05-15 23:43] LABS: Blood Morphology Comment NOT SEEN (NOT SEEN); Platelet Estimate ADEQ; White Blood Cell Scan OK (OK)
--- NOTE | 2024-05-15 23:49 | ER ---
Nurse's Notes [facility] Name: Toy Barrios Age: 68 yrs Sex: Male : 1955 Arrival Date: 05/15/2024 Time: 22:04 Bed 2 Private MD: Diagnosis: Emphysema, unspecified;Chronic emphysema, acute dyspnea, generalized plethora, acute adverse reaction to medication Presentation: 05/15 22:07 Chief complaint: EMS states: Pt initially called for possible medication reaction. jb4 Reported feeling bad after taking an [place]. Upon arrival pt was in respiratory distress. We given a 1:1 A:A treatment. HR was irregular going from 40's to 180's pt was wheezing initially and has a 20g to the LAC. Coronavirus screen: At this time, the client does not indicate any symptoms associated with coronavirus-19. Ebola Screen: No symptoms or risks identified at this time. Initial Sepsis Screen: Does the patient meet any 2 criteria?. Risk Assessment: Do you want to hurt yourself or someone else? Patient reports no desire to harm self or others. Onset of symptoms was May 15, 2024. Transition of care: patient was not received from another setting of care. 22:07 Method Of Arrival: EMS: [facility] jb4 22:07 Acuity: LICHA 2 jb4 22:14 Initial Sepsis Screen: Does the patient have a suspected source of infection? No. lg3 Patient's initial sepsis screen is negative. Historical: - Allergies: 22:09 topical eczema cream; jb4 22:09 crisaborole; jb4 - Home Meds: 22:09 atorvastatin 80 mg Oral tab 1 tab once daily [Active]; gabapentin 100 mg Oral cap 1 cap jb4 3 times per day [Active]; torsemide 20 mg Oral tab 1 tab twice a day [Active]; metoprolol tartrate 12.5 Oral tab 1 tab once daily [Active]; Aspirin 81 mg Oral once [Active]; Vitamin C 500 mg oral tablet [Active]; super B complex [Active]; Vitamin D3 50 mcg (2,000 unit) oral tablet [Active]; - PMHx: 22:09 eczema; Hypertensive disorder; Myocardial infarction; jb4 - PSHx: 22:09 bypass; jb4 - Immunization history:: Adult Immunizations up to date. - Infectious Disease History:: Denies. - Social history:: Smoking status: Patient reports the use of cigarette tobacco products. - Family history:: not pertinent. Screenin:46 [facility] ED Fall Risk Assessment (Adult) History of falling in the last 3 months, dd2 including since admission No falls in past 3 months (0 pts) Confusion or Disorientation No (0 pts) Intoxicated or Sedated No (0 pts) Impaired Gait No (0 pts) Mobility Assist Device Used No (0 pt) Altered Elimination No (0 pt) Score/Fall Risk Level 0 - 2 = Low Risk Oriented to surroundings, Maintained a safe environment, Educated pt \T\ family on fall prevention, incl call for assistance when getting out of bed, Assessed \T\ reinforced patient's understanding of fall precautions, Hourly rounding (assess needs \T\ fall precautionary measures) done. Abuse screen: Denies threats or abuse. Nutritional screening: No deficits noted. Tuberculosis screening: No symptoms or risk factors identified. Assessment: 22:46 General: Appears uncomfortable, Behavior is calm, cooperative, appropriate for age. dd2 Pain: Denies pain. Neuro: Erickson Agitation-Sedation Scale (RASS): 0 - Alert and Calm Level of Consciousness is awake, alert, obeys commands, Oriented to person, place, time, situation, Appropriate for age Butter Liquefier are equal bilaterally. Cardiovascular: Patient's skin is warm and dry. Rhythm is sinus tachycardia with PACs with unifocal PVCs. Respiratory: Reports shortness of breath at rest on exertion Airway is patent Respiratory effort is even, unlabored, Respiratory pattern is regular, symmetrical, Breath sounds are clear bilaterally. GI: No deficits noted. No signs and/or symptoms were reported involving the gastrointestinal system. Abdomen is non-distended, Abd is soft and non tender X 4 quads. : No deficits noted. No signs and/or symptoms were reported regarding the genitourinary system. EENT: No deficits noted. No signs and/or symptoms were reported regarding the EENT system. Derm: Skin is healthy with good turgor, Skin is dry, Skin is red, Skin temperature is warm. Musculoskeletal: Circulation, motion, and sensation intact. Range of motion: intact in all extremities. 23:58 Reassessment: Patient appears in no apparent distress at this time. Patient and/or bm8 family updated on plan of care and expected duration. Pain level reassessed. Patient is alert, oriented x 3, equal unlabored respirations, skin warm/dry/pink. Patient denies pain at this time. Patient states feeling better. Patient states symptoms have improved. Vital Signs: 22:14 BP 110 / 78; Pulse 100; Resp 17 S; Temp 97.6(O); Pulse Ox 94% on 2 lpm NC; Weight 87.54 lg3 kg (R); Height 6 ft. 0 in. (R); 23:58 BP 112 / 74; Pulse 100; Resp 20; Temp 97.6; Pulse Ox 96% ; Pain 0/10; bm8 05/16 00:38 BP 117 / 79; Pulse 98; Resp 17; Temp 97.9; Pulse Ox 97% ; Pain 0/10; dd2 01:15 BP 115 / 73; Pulse 101; Resp 17; Pulse Ox 96% on R/A; dd2 02:25 BP 113 / 75; Pulse 98; Resp 17; Temp 97.8; Pulse Ox 97% on R/A; dd2 05/15 22:14 Body Mass Index 26.18 (87.54 kg, 182.88 cm) lg3 23:58 Pain Scale: Adult bm8 05/16 00:38 Pain Scale: Adult dd2 [place] Coma Score: 05/15 22:19 Eye Response: spontaneous(4). Motor Response: obeys commands(6). Verbal Response: sp4 oriented(5). Total: 15. 22:46 Eye Response: spontaneous(4). Motor Response: obeys commands(6). Verbal Response: dd2 oriented(5). Total: 15. ED Course: 22:06 Patient arrived in ED. jb4 22:07 Don Staton MD is Attending Physician. sp4 22:09 Triage completed. jb4 22:09 Arm band placed on right wrist. jb4 22:21 BREN IYER, CECELIA is Primary Nurse. dd2 22:22 Troponin HS Sent. kmf 22:22 PT-INR Sent. kmf 22:22 NT PRO-BNP Sent. kmf 22:22 Magnesium Sent. kmf 22:22 LFT's Sent. kmf 22:22 CBC with Diff Sent. kmf 22:22 Basic Metabolic Panel Sent. kmf 22:45 XRAY Chest (1 view) In Process Unspecified. EDMS 22:46 Patient has correct armband on for positive identification. Bed in low position. Call dd2 light in reach. Side rails up X2. Client placed on continuous cardiac and pulse oximetry monitoring. NIBP monitoring applied. phototypesetting equipment monitor on. Door closed. Noise minimized. Warm blanket given. Pillow given. Verbal reassurance given. 22:46 No provider procedures requiring assistance completed. Initial lab(s) drawn, by ED dd2 staff, sent to lab. EKG done, by ED staff, reviewed by Don Staton MD. Initial Neb Treatment Given as ordered Patient was instructed and evaluated on procedure Patient tolerated procedure well without adverse effect. Maintain EMS IV. Dressing intact. Good blood return noted. Site clean \T\ dry. Gauge \T\ site: 20g LT AC. Flushed with 10 mL NS. Oxygen administration via nasal cannula \T\ 2L/min. 23:46 Satish Tompkins DO is Referral Physician. sp4 23:58 Provided Education on: post er care. bm8 23:58 IV discontinued, intact, bleeding controlled, No redness/swelling at site. Pressure bm8 dressing applied. 05/16 00:18 Primary Nurse role handed off by BREN IYER, CECELIA lg3 00:21 Zaid Morales, RN is Primary Nurse. bm8 00:40 Inserted saline lock: 20 gauge in right antecubital area, using aseptic technique. dd2 Blood collected. Flushed with 10 mL NS. 00:50 CT Chest For PE Angio In Process Unspecified. EDMS 02:10 Satish Tompkins DO is Referral Physician. sp4 02:25 IV discontinued, intact, bleeding controlled, No redness/swelling at site. Pressure dd2 dressing applied. Administered Medications: 05/15 22:35 Drug: MethylPrednisoLONE IVP 125 mg IVP once Route: IVP; Site: left antecubital; bm8 23:59 Follow up: Response: No adverse reaction bm8 22:35 Drug: Albuterol Inhalation 2.5 mg Inhalation once Route: Inhalation; bm8 23:59 Follow up: Response: No adverse reaction bm8 22:35 Drug: Ipratropium Inhalation Aerosol 0.5 mg Inhalation once Route: Inhalation; bm8 23:59 Follow up: Response: No adverse reaction bm8 22:36 Drug: diphenhydrAMINE IVP 25 mg IVP once Route: IVP; Site: left antecubital; bm8 23:59 Follow up: Response: No adverse reaction bm8 22:36 Drug: Famotidine IVP 20 mg IVP once; dilute with 10 mL 0.9% NaCl; give over 2 minutes bm8 Route: IVP; Site: left antecubital; 23:59 Follow up: Response: No adverse reaction bm8 23:59 Drug: Potassium PO Effervescent Tablet 50 mEq PO once; dissolve in 4 ounces of water or bm8 juice Route: PO; 23:59 Follow up: Response: No adverse reaction; Medication Administered at Departure bm8 05/16 00:07 Follow up: Response: No adverse reaction dd2 Medication: 05/15 22:46 VIS not applicable for this client. dd2 Outcome: 05/16 02:11 Discharge ordered by MD. keys 02:25 Discharged to home via wheelchair, with family, dd2 02:25 Condition: stable 02:25 Discharge instructions given to patient, family, Instructed on discharge instructions, follow up and referral plans. medication usage, Demonstrated understanding of instructions, follow-up care, medications, Prescriptions given X 2, 02:27 Patient left the ED. dd2 Signatures: Dispatcher [employer] EDMS Quentin Chavez RN Yessy Bess RN RN lg3 Potepalov, Sergey, MD MD sp4 Forrester, Kelsey [facility] Zaid Morales RN RN bmBREN VALDEZ RN RN dd2 Corrections: (The following items were deleted from the chart) 05/15 22:36 22:35 MethylPrednisoLONE IVP 125 mg IVP in right antecubital bm8 [facility] 05/16 00:22 05/15 23:49 Discharge ordered by MD. keys 8 05/16 00:22 05/15 23:58 Discharged to home ambulatory, with family, 8 8 05/16 00:22 05/15 23:58 Condition: stable bm8 8 05/16 00:05/15 23:58 Discharge instructions given to patient, family, Instructed on discharge 8 instructions, follow up and referral plans. no drinking with medication, no driving heavy equipment, medication usage, safety practices, Demonstrated understanding of instructions, follow-up care, medications, Prescriptions given X 1, bm8 05/16 00:22 00:00 Prescriptions given X 2, bm8 bm8 00: 00:08 Patient left the ED. dd2 bm8
--- NOTE | 2024-05-15 23:49 | EDPHYS ---
Physician Documentation [facility] Name: Toy Barrios Age: 68 yrs Sex: Male : 1955 Arrival Date: 05/15/2024 Time: 22:04 Bed 2 Private MD: ED Physician Don Staton HPI: 05/15 22:07 This 68 yrs old Male presents to ER via Unassigned with complaints of sp4 respiratory distress . 22:17 Patient is a very pleasant 68-year-old male with history of eczema, hypertension, sp4 myocardial infarction, and CABG, patient presents after he developed shortness of breath and redness over the skin after he took Excedrin and also Advil for fever at home. Patient reported he had fever at home was feeling unwell and after he consumed Excedrin and Advil he developed shortness of breath and generalized skin redness. Patient was brought in by EMS EMS reported some wheezing they administered ipratropium and albuterol for wheezing.. 23:45 No history of diabetes, history of heart failure with CABG, patient takes torsemide, sp4 atorvastatin, metoprolol.. Historical: - Allergies: 22:09 topical eczema cream; jb4 22:09 crisaborole; jb4 - Home Meds: 22:09 atorvastatin 80 mg Oral tab 1 tab once daily [Active]; gabapentin 100 mg Oral cap 1 cap jb4 3 times per day [Active]; torsemide 20 mg Oral tab 1 tab twice a day [Active]; metoprolol tartrate 12.5 Oral tab 1 tab once daily [Active]; Aspirin 81 mg Oral once [Active]; Vitamin C 500 mg oral tablet [Active]; super B complex [Active]; Vitamin D3 50 mcg (2,000 unit) oral tablet [Active]; - PMHx: 22:09 eczema; Hypertensive disorder; Myocardial infarction; jb4 - PSHx: 22:09 bypass; jb4 - Immunization history:: Adult Immunizations up to date. - Infectious Disease History:: Denies. - Social history:: Smoking status: Patient reports the use of cigarette tobacco products. - Family history:: not pertinent. ROS: 22:19 Constitutional: Negative for fever, chills, and weight loss, positive for generalized sp4 redness positive for dyspnea and wheezing 22:19 All other systems are negative, Exam: 22:19 Constitutional: This is a well developed, well nourished patient who is awake, alert sp4 positive for generalized redness positive for peripheral cyanosis positive for generalized weakness otherwise hemodynamically stable. Head/Face: Normocephalic, atraumatic. Positive for facial plethora Eyes: Pupils equal round and reactive to light, extra-ocular motions intact. Lids and lashes normal. Conjunctiva and sclera are not injected. Cornea within normal limits. Periorbital areas with no swelling, redness, or edema. ENT: Nares patent. No nasal discharge, no septal abnormalities noted. Tympanic membranes are normal and external auditory canals are clear. Oropharynx with no redness, swelling, or masses, exudates, or evidence of obstruction, uvula midline. Mucous membranes moist. Neck: Trachea midline, no thyromegaly or masses palpated, and no cervical lymphadenopathy. Supple, full range of motion without nuchal rigidity, or vertebral point tenderness. Chest/axilla: Normal chest wall appearance and motion. Nontender with no deformity. No lesions are appreciated. Cardiovascular: Regular rate and rhythm with a normal S1 and S2. No gallops, murmurs, or rubs. Normal PMI, no JVD. No pulse deficits. Respiratory: Lungs have equal breath sounds bilaterally, clear to auscultation and percussion. No rales, rhonchi or wheezes noted. No increased work of breathing, no retractions or nasal flaring. Abdomen/GI: Soft, with normal bowel sounds. No distension or tympany. No guarding or rebound. No evidence of tenderness throughout. Back: No spinal tenderness. No costovertebral tenderness. Skin: Warm, dry with normal turgor. Normal color with no rashes, no lesions, and no evidence of cellulitis. MS/ Extremity: Pulses equal, no cyanosis. Neurovascular intact. Full, normal range of motion. Neuro: Awake and alert, GCS 15, oriented to person, place, time, and situation. Cranial nerves II-XII grossly intact. Motor strength 5/5 in all extremities. Sensory grossly intact. Psych: Awake, alert, with orientation to person, place and time. Behavior, mood, and affect are within normal limits 22:19 ECG was reviewed by the Attending Physician. EKG at 2212 sinus tachycardia 103 right axis deviation. Vital Signs: 22:14 BP 110 / 78; Pulse 100; Resp 17 S; Temp 97.6(O); Pulse Ox 94% on 2 lpm NC; Weight 87.54 lg3 kg (R); Height 6 ft. 0 in. (R); 23:58 BP 112 / 74; Pulse 100; Resp 20; Temp 97.6; Pulse Ox 96% ; Pain 0/10; bm8 05/16 00:38 BP 117 / 79; Pulse 98; Resp 17; Temp 97.9; Pulse Ox 97% ; Pain 0/10; dd2 01:15 BP 115 / 73; Pulse 101; Resp 17; Pulse Ox 96% on R/A; dd2 02:25 BP 113 / 75; Pulse 98; Resp 17; Temp 97.8; Pulse Ox 97% on R/A; dd2 05/15 22:14 Body Mass Index 26.18 (87.54 kg, 182.88 cm) lg3 23:58 Pain Scale: Adult bm8 05/16 00:38 Pain Scale: Adult dd2 [place] Coma Score: 05/15 22:19 Eye Response: spontaneous(4). Motor Response: obeys commands(6). Verbal Response: sp4 oriented(5). Total: 15. 22:46 Eye Response: spontaneous(4). Motor Response: obeys commands(6). Verbal Response: dd2 oriented(5). Total: 15. MDM: 22:16 Medical Screening Exam initiated sp4 22:28 Differential Diagnosis altered mental status, sepsis, flu, Adverse reaction to sp4 medication.. Data reviewed: vital signs, nurses notes, EMS record, old medical records, lab test result(s), EKG, radiologic studies. 23:39 ED course: EXAM: XR Chest, 1 View CLINICAL HISTORY: The patient is 68 years old and is sp4 Male; CONGESTION TECHNIQUE: Frontal view of the chest. COMPARISON: No relevant prior studies available. FINDINGS: LUNGS: Calcified granuloma within the right upper lobe is present. The lungs are well-inflated. Mild coarse interstitial markings are present. Minimal superimposed opacity is noted. PLEURAL SPACE: Blunting of the left costophrenic angle is congested. No pneumothorax. HEART: Unremarkable. No cardiomegaly. MEDIASTINUM: Unremarkable. Normal mediastinal contour. BONES/JOINTS: Evidence of median sternotomy is noted. No acute fracture. UPPER ABDOMEN: Unremarkable as visualized. IMPRESSION: 1. Questionable trace left pleural effusion. 2. Mild coarse interstitial markings with minimal superimposed opacity. Findings are nonspecific but may be secondary to mild infectious versus edematous process. . 23:45 Consideration of Admission/Observation Escalation of care including sp4 admission/observation considered. ED course: Patient has stable vital signs. Troponin is negative. Oxygenation 95% on room air. ABG does not reveal any significant gas exchange impairment, ABG reveals pH 7.4, pCO2 33.5, pO2 172. Patient states he is feeling better, will proceed with discharge home with p.o. prednisone, as needed Benadryl. Will refer patient to Dr. Tompkins with [facility].. 05/16 01:46 ED course: Patient was advised to stay just a little longer so that we can complete CT sp4 chest for PE protocol.. 02:10 ED course: CLINICAL HISTORY: The patient is 68 years old and is Male; DYSPNEA sp4 TECHNIQUE: Axial computed tomographic angiography images of the chest with intravenous contrast. Sagittal and coronal reformatted images were created and reviewed. This CT exam was performed using one or more of the following dose reduction techniques: automated exposure control, adjustment of the mA and/or kV according to patient size, and/or use of iterative reconstruction technique. MIP reconstructed images were created and reviewed. COMPARISON: No relevant prior studies available. FINDINGS: ARTIFACTS: The exam is suboptimal secondary to motion artifact. TRACHEA: The tracheobronchial tree is patent. PULMONARYARTERIES: There are no obvious filling defects identified within the pulmonary arteries to suggest pulmonary embolism. AORTA: Atherosclerosis of the vasculature is present. The vessels are normal in caliber. No thoracic aortic aneurysm. LUNGS: Calcified granuloma within the right upper lobe is present. The lungs are hyperinflated. Extensive emphysematous change of the lungs is noted. Minimal dependent densities in the lung bases are present. There is no lobar consolidation. PLEURAL SPACE: Unremarkable. No significant effusion. No pneumothorax. HEART: Unremarkable. No cardiomegaly. No significant pericardial effusion. No evidence of RV dysfunction. BONES/JOINTS: The liver is mildly sclerotic with a nodular contour. Evidence of median sternotomy is noted. No acute fracture. No dislocation. SOFT TISSUES: Unremarkable. LYMPH NODES: Unremarkable. No enlarged lymph nodes. GALLBLADDER AND BILE DUCTS: A few calcified gallstones are present layering within the gallbladder. There is no gallbladder wall thickening. PANCREAS: Fatty infiltration and atrophy of the pancreas is noted. IMPRESSION: 1. No evidence of pulmonary embolism. 2. Cholelithiasis without CT evidence to suggest cholecystitis. RECOMMENDATION: Given the presence of pulmonary emphysema, an independent risk factor for lung cancer, consider evaluating the patient for a low-dose CT lung cancer screening program. Electronically signed by: Patricia Cooper MD 05/16/2024 01:58 AM [employer] RP. 05/15 22:08 Order name: Basic Metabolic Panel; Complete Time: 23:35 [facility] 05/15 22:08 Order name: CBC with Diff; Complete Time: 23:53 [facility] 05/15 22:08 Order name: LFT's; Complete Time: 23:35 [facility] 05/15 22:08 Order name: Magnesium; Complete Time: 23:35 [facility] 05/15 22:08 Order name: NT PRO-BNP; Complete Time: 23:35 [facility] 05/15 22:08 Order name: PT-INR; Complete Time: 23:35 [facility] 05/15 22:08 Order name: Troponin HS; Complete Time: 23:35 [facility] 05/15 22:09 Order name: Influenza Screen (a \T\ B); Complete Time: 23:35 [facility] 05/15 22:09 Order name: Alcohol Level; Complete Time: 23:35 [facility] 05/15 22:15 Order name: SARS RAPID; Complete Time: 23:35 [facility] 05/15 22:15 Order name: ABG; Complete Time: 01:17 [facility] 05/15 23:07 Order name: CBC Smear Scan; Complete Time: 23:53 [facility]IN 05/15 22:08 Order name: XRAY Chest (1 view) 05/16 00:27 Order name: CT Chest For PE Angio [facility] 05/15 22:08 Order name: EKG; Complete Time: 22:09 [facility] 05/15 22:08 Order name: Cardiac monitoring; Complete Time: 22:22 [facility] 05/15 22:08 Order name: EKG - Nurse/Tech; Complete Time: 22:22 [facility] 05/15 22:08 Order name: IV Saline Lock; Complete Time: 22:22 [facility] 05/15 22:08 Order name: Labs collected and sent; Complete Time: 22:22 sp4 05/15 22:08 Order name: O2 Per Protocol; Complete Time: sp4 05/15 22:08 Order name: O2 Sat Monitoring; Complete Time: sp4 EC/20 22:12 Rate is 103 beats/min. Rhythm is regular, Sinus tachycardia with Multifocal PVCs, PACs. sp4 Right axis deviation noted. LA interval is normal. QRS interval is normal. QT interval is normal. No Q waves. T waves are Normal. No ST changes noted. Clinical impression: No evidence of ischemia. Interpreted by me. Reviewed by me. Administered Medications: 22:35 Drug: MethylPrednisoLONE IVP 125 mg IVP once Route: IVP; Site: left antecubital; bm8 23:59 Follow up: Response: No adverse reaction bm8 22:35 Drug: Albuterol Inhalation 2.5 mg Inhalation once Route: Inhalation; bm8 23:59 Follow up: Response: No adverse reaction bm8 22:35 Drug: Ipratropium Inhalation Aerosol 0.5 mg Inhalation once Route: Inhalation; bm8 23:59 Follow up: Response: No adverse reaction bm8 22:36 Drug: diphenhydrAMINE IVP 25 mg IVP once Route: IVP; Site: left antecubital; bm8 23:59 Follow up: Response: No adverse reaction bm8 22:36 Drug: Famotidine IVP 20 mg IVP once; dilute with 10 mL 0.9% NaCl; give over 2 minutes bm8 Route: IVP; Site: left antecubital; 23:59 Follow up: Response: No adverse reaction bm8 23:59 Drug: Potassium PO Effervescent Tablet 50 mEq PO once; dissolve in 4 ounces of water or bm8 juice Route: PO; 23:59 Follow up: Response: No adverse reaction; Medication Administered at Departure bm8 05/16 00:07 Follow up: Response: No adverse reaction dd2 Disposition Summary: 05/16/24 02:11 Discharge Ordered Notes: Location: Home(05/16/24 02:11) sp4 Problem: new(05/16/24 02:11) sp4 Symptoms: have improved(05/16/24 02:11) sp4 Condition: Stable(05/16/24 02:11) sp4 Diagnosis - Emphysema, unspecified sp4 - Chronic emphysema, acute dyspnea, generalized plethora, acute adverse reaction to sp4 medication Followup: sp4 - With: Satish Tompkins DO - When: 7 - 10 days - Reason: Recheck today's complaints Discharge Instructions: - Discharge Summary Sheet sp4 - Drug Allergy, [id number] sp4 Forms: - Patient Portal Instructions sp4 Prescriptions: - diphenhydramine HCl 25 mg Oral Tablet,disintegrating - take 1 tablet ORAL route every 8 hours for 5 days PRN redness; 50 tablet; sp4 Refills: 0, Product Selection Permitted - Prednisone 20 mg Oral Tablet - take 2 tablets ORAL route once daily for 5 days; 10 tablet; Refills: 0, Product sp4 Selection Permitted Signatures: Dispatcher [employer] EDMS Quentin Chavez, RN RN jb4 Don Staton MD MD sp4 Zaid Morales RN RN bm8 BREN IYER RN dd2 Corrections: (The following items were deleted from the chart) 05/15 22:16 22:16 Arterial Blood Gas+[id number] ordered. EDIN EDMS 05/16 99:05/15 23:49 Home sp4 sb4 05/16 99:05/15 23:49 new sp4 sb4 05/16 99:05/15 23:49 have improved sp4 sb4 05/16 99:05/15 23:49 Stable sp4 sb4 05/16 99:05/15 23:49 Adverse reaction to medication, acute generalized plethora , Acute sb4 respiratory distress with wheezing sp4
[2024-05-15] MEDS ORDERED: POTASSIUM 25 MEQ EFFERV TAB ONE (23:54)
[2024-05-16 00:40] LABS: Blood Gas Oxyhemoglobin 96.8 % (94-97)
[2024-05-16 00:41] LABS: Arterial Blood Carboxyhemoglob 1.1 % (0-1.5); Blood Gas THB 19.2 g/dl (12-18)
--- NOTE | 2024-05-16 02:10 | RAD REPORT ---
EXAM: CT Angiography Chest With Intravenous Contrast CLINICAL HISTORY: The patient is 68 years old and is Male; DYSPNEA TECHNIQUE: Axial computed tomographic angiography images of the chest with intravenous contrast. Sagittal an d coronal reformatted images were created and reviewed. This CT exam was performed using one or more of the following dose reduction techniques: automated exposure control, adjustment of the mA a nd/or kV according to patient size, and/or use of iterative reconstruction technique. MIP reconstructed images were created and reviewed. COMPARISON: No relevant prior studies available. FINDINGS: ARTIFACTS: The exam is suboptimal secondary to motion artifact. TRACHEA: The tracheobronchial tree is patent. PULMONARY ARTERIES: There are no obvious filling defects identified within the pulmonary arteries to suggest pulmonary embolism. AORTA: Atherosclerosis of the vasculature is present. The vessels are normal in caliber. No tho racic aortic aneurysm. LUNGS: Calcified granuloma within the right upper lobe is present. The lungs are hyperinflated. E xtensive emphysematous change of the lungs is noted. Minimal dependent densities in the lung bases are present. There is no lobar consolidation. PLEURAL SPACE: Unremarkable. No significant effusion. No pneumothorax. HEART: Unremarkable. No cardiomegaly. No significant pericardial effusion. No evidence of R V dysfunction. BONES/JOINTS: The liver is mildly sclerotic with a nodular contour. Evidence of median sternoto my is noted. No acute fracture. No dislocation. SOFT TISSUES: Unremarkable. LYMPH NODES: Unremarkable. No enlarged lymph nodes. GALLBLADDER AND BILE DUCTS: A few calcified gallstones are present layering within the gallbladde r. There is no gallbladder wall thickening. PANCREAS: Fatty infiltration and atrophy of the pancreas is noted. IMPRESSION: 1. No evidence of pulmonary embolism. 2. Cholelithiasis without CT evidence to suggest cholecystitis. RECOMMENDATION: Given the presence of pulmonary emphysema, an independent risk factor for lung cancer , consider evaluating the patient for a low-dose CT lung cancer screening program. Electronically signed by: Patricia Cooper MD 05/16/2024 01:58 AM [facility] Due to temporary technical issues with the P[employer] reporting system, reports are being harshad d by the in-house radiologist without review as a courtesy to ensure prompt reporting the interpreting radiologist is fully responsible for the content of the report. Transcribed Date/Time: 05/16/2024 2:10 AM
[2024-05-16 03:35] VITALS: BP 113/75; TEMP 97.8; O2SAT 97
--- NOTE | 2024-05-16 05:44 | RAD REPORT ---
EXAM: XR Chest, 1 View CLINICAL HISTORY: The patient is 68 years old and is Male; CONGESTION TECHNIQUE: Frontal view of the chest. COMPARISON: No relevant prior studies available. FINDINGS: LUNGS: Calcified granuloma within the right upper lobe is present. The lungs are well-inflated. M ild coarse interstitial markings are present. Minimal superimposed opacity is noted. PLEURAL SPACE: Blunting of the left costophrenic angle is congested. No pneumothorax. HEART: Unremarkable. No cardiomegaly. MEDIASTINUM: Unremarkable. Normal mediastinal contour. BONES/JOINTS: Evidence of median sternotomy is noted. No acute fracture. UPPER ABDOMEN: Unremarkable as visualized. IMPRESSION: 1. Questionable trace left pleural effusion. 2. Mild coarse interstitial markings with minimal superimposed opacity. Findings are nonspecific bu t may be secondary to mild infectious versus edematous process. Electronically signed by: Patricia Cooper MD 05/15/2024 11:22 PM [facility] Due to temporary technical issues with the PACS/[employer] reporting system, reports are being harshad d by the in-house radiologist without review as a courtesy to ensure prompt reporting the interpreting radiologist is fully responsible for the content of the report. Transcribed Date/Time: 05/16/2024 5:43 AM
--- NOTE | 2024-05-18 13:00 | EKG ---
Test Date: 2024-05-15 Test Time: 22:12:27 Acid Cleaner: MAI MEASUREMENT RESULTS: Intervals: Rate: 103 IA: 126 QRSD: 94 QT: 344 QTc: 450 [place]: P: 46 IA: 126 QRS: 113 T: 31 INTERPRETIVE STATEMENTS: Sinus tachycardia with premature atrial complexes Possible Left atrial enlargement Right axis deviation Abnormal ECG Compared to ECG 03/29/2021 15:18:22 Atrial premature complex(es) now present Right-axis deviation now present Sinus rhythm no longer present ST (T wave) deviation no longer present Electronically Signed On 05-18-24 12:58:48 RELAY TECHNICIAN by Chaz Albarran
== END 2024-05-16 02:27 | disposition home or self-care (01) ==
LOC: ER 22:04
DX: J43.9 Emphysema, unspecified (principal); T39.1X5A Adverse effect of 4-Aminophenol derivatives, initial encounter; R23.2 Flushing; I25.2 Old myocardial infarction; I10 Essential (primary) hypertension; L30.9 Dermatitis, unspecified; F17.210 Nicotine dependence, cigarettes, uncomplicated; Z88.8 Allergy status to other drugs, medicaments and biological substances; Z95.1 Presence of aortocoronary bypass graft; Z11.52 Encounter for screening for COVID-19
CPT/HCPCS: 85025; 80048; 36415; 83735; 85610; 80076; 84484; 83880; 87804 ×2; 71275; 71045; 94640; 82805; 96375; 96374; 99285; 82077; 87811; 36600; Q9967; J1200; J7613; J7644; J2919; 93005